=== PATIENT | female | born 1955 | race Caucasian/White ===

== ENCOUNTER 2020-11-25 06:07 | Inpatient (IN) ==
--- NOTE | 2020-11-01 10:47 | PAT Medication Instructions ---
Medication Instructions Date of Service November 01, 2020 Home Medications Apple Cider Vinegar Gummies 2 tab PO QAM albuterol sulfate [ProAir HFA] 1 inh INHALATION QID PRN alprazolam 0.5 mg PO TID azelastine 1 spray INTRANASAL BID baclofen 10 mg PO BID cannabidiol 150 mg PO BID PRN cholecalciferol (vitamin D3) [Vitamin D3] 75 mcg PO QAM cyanocobalamin (vitamin B-12) [Vitamin B-12] 500 mcg PO TID diclofenac sodium 75 mg PO BID diltiazem HCl 180 mg PO HS duloxetine 60 mg PO QAM elderberry fruit [Elderberry] 200 mg PO QAM fluticasone propionate [Flovent HFA] 1 puff INHALATION BID magnesium 250 mg PO DAILY PRN metoprolol succinate 25 mg PO HS montelukast 10 mg PO QPM oxycodone-acetaminophen 1 tab PO TID PRN pantoprazole 40 mg PO QPM potassium chloride 20 meq PO QAM pregabalin [Lyrica] 150 mg PO TID rizatriptan 10 mg PO UD PRN rosuvastatin 5 mg PO QPM triamterene-hydrochlorothiazid 1 tab PO QAM ASK your surgeon for instructions diclofenac sodium 75 mg PO BID STOP taking 2 weeks before surgery If surgery is within 2 weeks, stop taking as soon as possible. Apple Cider Vinegar Gummies 2 tab PO QAM elderberry fruit [Elderberry] 200 mg PO QAM DO NOT take the morning of surgery baclofen 10 mg PO BID cholecalciferol (vitamin D3) [Vitamin D3] 75 mcg PO QAM cyanocobalamin (vitamin B-12) [Vitamin B-12] 500 mcg PO TID magnesium 250 mg PO DAILY PRN potassium chloride 20 meq PO QAM triamterene-hydrochlorothiazid 1 tab PO QAM Take morning of surgery With a small sip of water, OTHERWISE NOTHING TO EAT OR DRINK AFTER MIDNIGHT: albuterol sulfate [ProAir HFA] 1 inh INHALATION QID PRN (if needed) alprazolam 0.5 mg PO TID azelastine 1 spray INTRANASAL BID duloxetine 60 mg PO QAM fluticasone propionate [Flovent HFA] 1 puff INHALATION BID oxycodone-acetaminophen 1 tab PO TID PRN (if needed, may be taken up to four hours before surgery) pregabalin [Lyrica] 150 mg PO TID rizatriptan 10 mg PO UD PRN (if needed) Take evening before surgery albuterol sulfate [ProAir HFA] 1 inh INHALATION QID PRN (if needed) alprazolam 0.5 mg PO TID azelastine 1 spray INTRANASAL BID baclofen 10 mg PO BID cannabidiol 150 mg PO BID PRN (if needed) cyanocobalamin (vitamin B-12) [Vitamin B-12] 500 mcg PO TID diltiazem HCl 180 mg PO HS fluticasone propionate [Flovent HFA] 1 puff INHALATION BID magnesium 250 mg PO DAILY PRN (if needed) metoprolol succinate 25 mg PO HS montelukast 10 mg PO QPM oxycodone-acetaminophen 1 tab PO TID PRN (if needed) pantoprazole 40 mg PO QPM pregabalin [Lyrica] 150 mg PO TID rizatriptan 10 mg PO UD PRN (if needed) rosuvastatin 5 mg PO QPM Other Notes If you have any questions please call us at [phone] or [phone] or [phone] or [phone]
--- NOTE | 2020-11-05 13:30 | Anesthesiology Consultation ---
Date of Service November 05, 2020 Assessment & Plan (1) Encounter for pre-operative examination: COVID Status: As of 11/05 assessment, patient denies travel to endemic area, known exposure/sick contacts, or symptoms of COVID19. Patient instructed that they and their household members must follow strict social distancing guidelines, wear a mask in public and avoid travel/events/gatherings for 14 days prior to surgery. Preoperative COVID19 testing to be completed prior to surgery per surgeon's arrangements (11/18 per pt at [facility]). Patient made aware to self- isolate as much as possible between COVID testing and surgery. Based on physical exam and limited neck ROM with h/o repaired chiari malformation, likely difficult intubation. Patient was told in the past by her neurologist that anesthesia should have a low threshold for using fiberoptic intubation and avoid neck manipulation. LMA used for 2010 TKA revision without issues per [facility] records. Cardiology Clearance 10/14/20 = "Dia Davis is in need of orthopedic surgery on her back for severe pain. She has been followed by cardiology due to history of SVT/atrial tachycardia which has been treated medically. She reported no recent cardiac events or symptoms when interviewed on the phone today. She can go up and down stairs without chest pain, but this activity causes severe back pain. She is felt to be a reasonable candidate for the planned orthopedic surgery. Obstructive sleep apnea will need to be monitored closely in the donya- operative period." Chart Review Chart Review: Acceptable Risk for Surgery and Patient seen in Pre Admission Testing Teaching & Discussion Instructed NPO after midnight before surgery, except medications with 15 cc of water. Medication instructions provided according to the PAT guidelines. History Surgery Operation Date: 11/25/20 07:45 Proposed Procedures p L2-L3 and L5-S1 Decompression and fusion, L3-L5 Hardware Removal Spinal Cor d Monitoring - Stiven Cárdenas, Height/Weight Height: 5 ft 7 in Weight: 122.5 kg Allergies Allergy/AdvReac Type Severity Reaction Status Date / Time topiramate [From Topamax] Allergy Severe Chest Pain Verified 10/29/20 15:12 adhesive AdvReac Severe blisters Verified 10/29/20 15:12 metoclopramide [From Reglan] AdvReac Intermediate skin Verified 10/29/20 15:52 crawling Medications Home Medications Medication Instructions Recorded Confirmed Last Taken Apple Cider Vinegar Gummies 2 tab PO QAM 10/29/20 10/29/20 Unknown albuterol sulfate [ProAir HFA] 1 inh INHALATION QID PRN 10/29/20 10/29/20 Unknown alprazolam 0.5 mg PO TID 10/29/20 10/29/20 Unknown azelastine 1 spray INTRANASAL BID 10/29/20 10/29/20 Unknown baclofen 10 mg PO BID 10/29/20 10/29/20 Unknown cannabidiol 150 mg PO BID PRN 10/29/20 10/29/20 Unknown cholecalciferol (vitamin D3) 75 mcg PO QAM 10/29/20 10/29/20 Unknown [Vitamin D3] cyanocobalamin (vitamin B-12) 500 mcg PO TID 10/29/20 10/29/20 Unknown [Vitamin B-12] diclofenac sodium 75 mg PO BID 10/29/20 10/29/20 Unknown diltiazem HCl 180 mg PO HS 10/29/20 10/29/20 Unknown duloxetine 60 mg PO QAM 10/29/20 10/29/20 Unknown elderberry fruit [Elderberry] 200 mg PO QAM 10/29/20 10/29/20 Unknown fluticasone propionate [Flovent 1 puff INHALATION BID 10/29/20 10/29/20 Unknown HFA] magnesium 250 mg PO DAILY PRN 10/29/20 10/29/20 Unknown metoprolol succinate 25 mg PO HS 10/29/20 10/29/20 Unknown montelukast 10 mg PO QPM 10/29/20 10/29/20 Unknown oxycodone-acetaminophen 1 tab PO TID PRN 10/29/20 10/29/20 Unknown pantoprazole 40 mg PO QPM 10/29/20 10/29/20 Unknown potassium chloride 20 meq PO QAM 10/29/20 10/29/20 Unknown pregabalin [Lyrica] 150 mg PO TID 10/29/20 10/29/20 Unknown rizatriptan 10 mg PO UD PRN 10/29/20 10/29/20 Unknown rosuvastatin 5 mg PO QPM 10/29/20 10/29/20 Unknown triamterene-hydrochlorothiazid 1 tab PO QAM 10/29/20 10/29/20 Unknown Past Medical History Medical History Anxiety Arnold-Chiari syndrome Asthma Advair BID, albuterol PRN, usually a few times per week, with exertion or hot/cold weather. Chiari malformation s/p craniotomy x 2 for repair Chronic back pain Degenerative disc disease Depression GERD (gastroesophageal reflux disease) Hemangioma of liver x2 -- monitoring Hiatal hernia Hydrocephalus [employer] Shunt (~1997) no current neurologist -- following with PCP currently, looking for a new neurologist Hyperlipidemia Hypertension Kidney stones no surgery Meniere's disease Nausea and vomiting after administration of anesthetic agent Osteoarthritis Sleep apnea cpap nightly SVT (supraventricular tachycardia) treated with medication. follows with Dr Galan ([facility]) Exercise / Class Metabolic Activity III < 4 Walking/Shop/Light housework (Using walker for stability and posture, +SOB with ambulation but pt feels 2/2 pain and difficulty, denies any chest pain) Past Family History Family History Other No family history of adverse response to anesthesia Past Surgical History Surgical History H/O craniotomy x2 to repair chiari malformation with a revision from a bovine patch H/O laminectomy C1-C2 H/O vaginal hysterectomy History of cardiac cath 20+ years ago -- no stents. History of cataract surgery bilateral History of cholecystectomy History of colonoscopy History of cystocele cystocele repair History of esophagogastroduodenoscopy (EGD) History of left knee replacement History of repair of rectocele History of revision of total replacement of right knee joint History of right knee joint replacement History of thyroidectomy, subtotal thyroid nodule. no medication. History of tonsillectomy S/P lumbar fusion Lumbar S/P [employer] shunt [place], [place] (1997) Past Anesthesia History No Family Hx of Anesthesia Complications Pt reports some h/o confusion/delirium post-op a few hours after surgery. History of PONV No Hx of Motion Sickness and History of PONV Social History Smoking Status: Never smoker Do You Dip or Chew Tobacco: No Hx Alcohol Use: No Hx Substance Use: No substance use type: does not use Review of Systems Pt denies any recent chest pain, shortness of breath, cough, fever, URI, or uncontrolled acid reflux. Had sinus infection 2 wks ago, just finished ABX, resolved. +occasional palpitations, mostly controlled with BB Physical Exam Vital Signs BP: 112/78 P: 54bpm SPO2: 94% RA T: 98.2 F R: 16 Constitutional + morbidly obese ENMN Mouth: + dental restorations (crowns and implants, several) and + small oral opening; no chipped teeth and no loose teeth Thyromental Distance: < 3.5 Finger Breadths (2.5-3) Mallampati Class: II Neck + thick neck and + limited neck extension (mildly) Respiratory normal respiratory effort, lungs clear to auscultation Cardiovascular Rate/Rhythm: regular rhythm and + bradycardic Heart Sounds: no murmur Vessels: no carotid bruit Testing Laboratory Results 11/05/20 13:40 11/05/20 13:40 PT 10.6 Seconds (9.0-12.0) 11/05/20 13:40 INR 1.0 (0.9-1.1) 11/05/20 13:40 APTT 26.9 Seconds (21.0-31.0) 11/05/20 13:40 Urine Color Yellow 11/05/20 Unknown Urine Appearance Clear (Clear) 11/05/20 Unknown Urine pH 6.5 (4.5-7.5) 11/05/20 Unknown Ur Specific [place] 1.011 (1.000-1.030) 11/05/20 Unknown Urine Protein Negative (Negative) 11/05/20 Unknown Urine Glucose (UA) Negative (Negative) 11/05/20 Unknown Urine Ketones Negative (Negative) 11/05/20 Unknown Urine Nitrite Negative (Negative) 11/05/20 Unknown Ur Leukocyte Esterase Negative (Negative) 11/05/20 Unknown Blood Type A Positive 11/05/20 13:40 Antibody Screen NEGATIVE 11/05/20 13:40 Electrocardiogram Date: 11/05/20 Findings: + SB @ (52bpm) Chest X-Ray Date: 11/05/20 Findings: + NAD Echocardiogram Date: 01/14/17 EF: 55% LV Function: normal RWMA: + none Valvular Disease: + no significant valvular disease Other Testing Mobile cardiac telemetry 01/11/17 The monitor was worn for one month. During the time of monitoring the patient was in sinus rhythm with an average heart rate of 74bpm. There were no ectopic rhythms documented. The patient had symptoms of chest pain and shortness of breath which correlated with sinus rhythm in the 80s to low 100s.
--- NOTE | 2020-11-05 14:03 | XRay Report ---
XR chest Pre-admission PA/Lat CLINICAL HISTORY: Preoperative chest COMPARISON STUDY: September 02, 2010 FINDINGS: The heart is the upper limits of normal in size. There is no failure. There is no focal pul monary consolidation. There are no pleural effusions. Increased markings at the right medial lung bas e are felt to represent a summation of vascular markings and fat pad.[ IMPRESSION: No active disease in the chest. ACT 112: Negative or not required by law. Electronically signed by: Adelfo Duffy M.D. 11/05/2020 2:02 PM
[2020-11-05 14:19] LABS: Basophils # (auto) 0.01 K/uL (0-0.2); Basophils % (auto) 0.2 %; Eosinophils # (auto) 0.17 K/uL (0-0.5); Hemoglobin 13.4 g/dL (12.0-16.0); Immature Granulocytes # (auto) 0.02 K/uL (0.00-0.02); Immature Granulocytes % (auto) 0.3 %; Lymphocytes % (auto) 22.6 %; Mean Corpuscular Hemoglobin 31.9 pg (25-34); Mean Corpuscular Hgb Conc 33.5 g/dL (32-36); Mean Corpuscular Volume 95.2 fL (80-100); Mean Platelet Volume 10.1 fL (7.4-10.4); Monocytes # (auto) 0.48 K/uL (0.11-0.59); Monocytes % (auto) 8.3 %; Neutrophils # (auto) 3.77 K/uL (1.4-6.5); Neutrophils % (auto) 65.6 %; Platelet Count 306 K/uL (130-400); RDW Coefficient of Variation 13.2 % (11.5-14.5); RDW Standard Deviation 45.5 fL (36.4-46.3); White Blood Count 5.75 K/uL (4.8-10.8)
[2020-11-05 14:27] LABS: BUN Creatinine Ratio 21.5 (10-20); Calcium 9.9 mg/dl (8.5-10.1); Creatinine Clr Calc Pharmacy 84.8 ml/min; Est GFR (African American) 77.3; Est GFR (Non-African American) 66.7; Potassium 3.7 mmol/L (3.5-5.1)
[2020-11-05 14:31] LABS: Partial Thromboplastin Time 26.9 Seconds (21.0-31.0); Prothrombin Time 10.6 Seconds (9.0-12.0)
[2020-11-05 14:35] LABS: Appearance Urine Clear (Clear); Bilirubin Urine Negative (Negative); Blood Urine Negative (Negative); Color Urine Yellow; Glucose Urine UA Negative (Negative); Ketones Urine Negative (Negative); Leukocyte Esterase Urine Negative (Negative); Nitrite Urine Negative (Negative); Protein Urine Negative (Negative); Specific Gravity Urine 1.011 (1.000-1.030); Urobilinogen Urine Negative (Negative); pH Urine 6.5 (4.5-7.5)
--- NOTE | 2020-11-05 15:35 | Electrocardiogram Report ---
Test Reason : Blood Pressure : / mmHG Vent. Rate : 052 BPM Atrial Rate : 052 BPM P-R Int : 192 ms QRS Dur : 096 ms QT Int : 456 ms P-R-T Axes : 065 055 057 degrees QTc Int : 424 ms Sinus bradycardia Otherwise normal ECG When compared with ECG of 02-SEP-2010 12:42, No significant change was found Confirmed by Fitz Nunes ([id number]) on 11/05/2020 3:34:52 PM Referred By: Stiven Cárdenas Confirmed By:Fitz Nunes
[~2020-11-25 06:07] MED LIST: ACETAMINOPHEN 500 MG TAB PO SCH; CeleBREX 200 MG CAP PO SCH; GABAPENTIN 600 MG DOSE PO SCH; LR 15ML/HR IV SCH
[2020-11-25] MEDS ORDERED: CeleBREX 200 MG CAP ONE (06:53)
[2020-11-25] MEDS ORDERED: PROPOFOL IV EMULSION 10 MG/ML 20 ML VIAL IV ONE (06:55)
[2020-11-25] MEDS ORDERED: ROCURONIUM BROMIDE 10 MG/ML 5 ML VIAL IV ONE ×2 (06:55→10:42)
[2020-11-25] MEDS ORDERED: LIDOCAINE HCL 2% 2 ML VIAL/AMP(20MG/ML) INFIL ONE (06:55)
[2020-11-25] MEDS ORDERED: MIDAZOLAM HCL 1 MG/ML 2ML VIAL ONE (06:56)
[2020-11-25] MEDS ORDERED: fentaNYL citrate 100 MCG/2 ML VIAL ONE ×2 (06:56→10:49)
[2020-11-25] MEDS ORDERED: BACITRACIN INJ 50,000 UNIT VIAL ONE (07:17)
[2020-11-25] MEDS ORDERED: BUPIVACAINE/EPINEPHRINE 0.5% MPF 1:200,000 30 ML VIAL ONE (07:17)
--- NOTE | 2020-11-25 07:49 | History & Physical Bridge Note ---
Date of Service November 25, 2020 History & Physical Bridge Note I have examined the patient, reviewed the History & Physical and in the interval since the performance of the History & Physical I have noted the following changes of clinical significance: no changes noted
--- NOTE | 2020-11-25 07:50 | History & Physical Report ---
Date of Service November 25, 2020 Assessment & Plan (1) Neurogenic claudication due to lumbar spinal stenosis: Admission and Anticipated Discharge Date Admission Date: L2-L3 and L5-S1 decompression fusion, L3-L5 hardware removal History of Present Illness Chief Complaint: Back and bilateral leg pain Primary Care Provider: OPAL PCP This is a 65-year-old female well-known to me the presents with chronic persistent back and bilateral leg pain. Failing course of nonoperative care is here for surgical invention. Allergies Allergy/AdvReac Type Severity Reaction Status Date / Time topiramate [From Topamax] Allergy Severe Chest Pain Verified 10/29/20 15:12 adhesive AdvReac Severe blisters Verified 10/29/20 15:12 metoclopramide [From Reglan] AdvReac Intermediate skin Verified 10/29/20 15:52 crawling Home Medications Medication Instructions Recorded Confirmed Type Apple Cider Vinegar Gummies 2 tab PO QAM 10/29/20 10/29/20 History albuterol sulfate [ProAir HFA] 1 inh INHALATION QID PRN 10/29/20 11/25/20 History alprazolam 0.5 mg PO TID 10/29/20 11/25/20 History azelastine 1 spray INTRANASAL BID 10/29/20 11/25/20 History baclofen 10 mg PO BID 10/29/20 11/25/20 History cannabidiol 150 mg PO BID PRN 10/29/20 11/25/20 History cholecalciferol (vitamin D3) 75 mcg PO QAM 10/29/20 10/29/20 History [Vitamin D3] cyanocobalamin (vitamin B-12) 500 mcg PO TID 10/29/20 11/25/20 History [Vitamin B-12] diclofenac sodium 75 mg PO BID 10/29/20 11/25/20 History diltiazem HCl 180 mg PO HS 10/29/20 11/25/20 History duloxetine 60 mg PO QAM 10/29/20 11/25/20 History elderberry fruit [Elderberry] 200 mg PO QAM 10/29/20 11/25/20 History fluticasone propionate [Flovent 1 puff INHALATION BID 10/29/20 10/29/20 History HFA] magnesium 250 mg PO DAILY PRN 10/29/20 11/25/20 History metoprolol succinate 25 mg PO HS 10/29/20 11/25/20 History montelukast 10 mg PO QPM 10/29/20 11/25/20 History oxycodone-acetaminophen 1 tab PO TID PRN 10/29/20 11/25/20 History pantoprazole 40 mg PO QPM 10/29/20 11/25/20 History potassium chloride 20 meq PO QAM 10/29/20 10/29/20 History pregabalin [Lyrica] 150 mg PO TID 10/29/20 11/25/20 History rizatriptan 10 mg PO UD PRN 10/29/20 10/29/20 History rosuvastatin 5 mg PO QPM 10/29/20 11/25/20 History triamterene-hydrochlorothiazid 1 tab PO QAM 10/29/20 11/25/20 History Past Med/Surg History Medical History Anxiety Arnold-Chiari syndrome Asthma Advair BID, albuterol PRN, usually a few times per week, with exertion or hot/cold weather. 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 follows with Dr Galan ([facility]) Surgical History H/O craniotomy x2 to repair chiari malformation with a revision from a bovine patch H/O laminectomy C1-C2 H/O vaginal hysterectomy History of cardiac cath 20+ years ago -- no stents. History of cataract surgery bilateral History of cholecystectomy History of colonoscopy History of cystocele cystocele repair History of esophagogastroduodenoscopy (EGD) History of left knee replacement History of repair of rectocele History of revision of total replacement of right knee joint History of right knee joint replacement History of thyroidectomy, subtotal thyroid nodule. no medication. 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 shunt [place], [place] (1997) Family History Other No family history of adverse response to anesthesia Social History Smoking Status: Never smoker Second Hand Exposure: Yes (as a child); Do You Dip or Chew Tobacco: No; Tobacco Cessation Education Requested by Patient: No Hx Alcohol Use: No Hx Substance Use: No Preferred Language: Maltese Communication Ability: Effective Gear Hobber Required: No Beliefs That Will Affect Care: None Current Living Situation: Spouse Other Information That Helps Us Care for You: No Feels Safe at Home: Yes Safety Concerns: Feels Safe At This Time Assistive Devices: Cane, CPAP, Glasses and Walker Physical Exam Physical Exam: Patient is alert and oriented Heart regular rhythm Lungs clear to auscultation Results & Data ([facility]) Vital Signs (Past 12 Hours) Vital Signs Temp Pulse Resp BP Pulse Ox 11/25/20 06:36 37 C 57 L 18 146/71 H 95 11/25/20 06:34 37 C 57 L 18 146/71 H 95
[2020-11-25] MEDS ORDERED: ePHEDrine sulfate 50 MG/ML SYR ONE (08:52)
[2020-11-25] MEDS ORDERED: ONDANSETRON INJ 2 MG/ML 2 ML VIAL ONE ×2 (08:52→10:04)
[2020-11-25] MEDS ORDERED: DEXAMETHASONE SOD INJ 4 MG/ML VIAL ONE (08:52)
[2020-11-25] MEDS ORDERED: ePHEDrine sulfate 50 MG/ML AMP IV PRN (09:21)
[2020-11-25] MEDS ORDERED: fentaNYL citrate 100 MCG/2 ML VIAL IV PRN (09:21)
[2020-11-25] MEDS ORDERED: HYDROmorphone INJ 1 MG/ML SYRINGE IV PRN ×2 (09:21→13:02)
[2020-11-25] MEDS ORDERED: ONDANSETRON INJ 2 MG/ML 2 ML VIAL IV PRN ×2 (09:21→13:02)
[2020-11-25] MEDS ORDERED: ATROPINE SULFATE 0.1 MG/ML 10ML SYR IV PRN (09:21)
[2020-11-25] MEDS ORDERED: NEOSTIGMINE METHYLSULFATE 1 MG/ML 10ML VIAL ONE (10:04)
[2020-11-25] MEDS ORDERED: GLYCOPYRROLATE 0.2 MG/ML VIAL ONE (10:04)
[2020-11-25] MEDS ORDERED: FLOSEAL HEMOSTATIC MATRIX 10ML TOP ONE (10:35)
--- NOTE | 2020-11-25 10:51 | Operative Report ---
Post Operative Report Pre & Post Diagnosis Operation Date: 11/25/20 07:45 Pre-Op Diagnosis: Spinal Senosis Lumbar Region with Neurogenic Post-Op Diagnosis: Spinal Senosis Lumbar Region with Neurogenic Morbid obesity I identified the patient and participated in the time-out.: Yes Procedure Operation Date: 11/25/20 07:45 Actual Procedures #1 removal of posterior instrumentation L3-4 and L4-5 per #2 exploration of fusion L3-4 and L4-5. #3 lumbar decompression with bilateral medial facetectomies and foraminotomies L2-3 and L5-S1. #4 posterior spinal fusion L2- 3 and L5-S1. #5 placement posterior segmental instrumentation L2-S1. #6 interbody fusion L2-3 and L5-S1. #7 placement peek cage 11 x 26 mm at L2-3 and L3-4. #8 placement locally harvested morselized autograft in the posterior lateral gutters per #9 placement infuse collagen sponge plan master graft in the posterior lateral gutters and ostial amp and interbody space. Surgeon Stiven Cárdenas, DO Title Manager Roseanna Kelley Estimated Blood Loss 800 Findings See Below The patient is 5 foot 7 inches tall weighing over 122 kg with a BMI in excess of 42. The patient's body habitus combined with an EBL greater than 800 cc created significant technical difficulty requiring her deepest retractors longus instruments in order to perform her procedure. This had at least 50% increase to the operative time. Specimens None Indications This is a 65-year-old female who presents with above-mentioned diagnosis after failing course of nonoperative care is here for the above-mentioned procedure. Description of Procedure Patient was met with identified informed consent obtained. Patient was then taken to the operative suite underwent a patient placed in a prone position the Silas table atop the Michael frame. All bony prominences well-padded eyes inspected to ensure no external pressure placed upon the. This point the lumbar spine was prepped and draped in sterile fashion. Sharp dissection with the assistance of Bovie cautery was performed down to and exposing the lamina and transverse processes of L2 instrumentation L3-L4-L5 as well as the sacral ala bilaterally. I then remove the hardware bilaterally explore the fusion mass noting it to be mature. I then performed a complete laminectomy bilateral medial facetectomy and foraminotomies of L2 and L5 addressing severe spinal stenosis. Pedicle screws were then placed in L2 L3-L4-L5 and the S1 levels bilaterally with assistance of fluoroscopy and the proper sized billy placed. By way of a transforamen approach on right complete discectomy of L5-S1 was performed endplates curetted to subcortical bleeding bone and an 11 x 26 mm peek cage filled with osteobone graft tapped in position. I then proceeded to L2-[address] of a transforaminal portion right complete discectomy performed endplates curetted to subcortical being bone and 11 x 26 mm peek cage filled with osteobone graft tapped in position. Rods were then locked in final position bilaterally. The transverse processes of L2-L3 L5 and the sacral ala burred to subcortical bleeding bone. Infuse collagen sponge master graft local autograft was placed in the posterior gutters. 15 round RYAN drain inserted. The incision was then closed with 1 Vicryl to fascia 2-0 Vicryl subcutaneously and 4 Monocryl for final skin closure. Steri-Strip sterile dressings placed. Patient waken taken PACU stable condition. Please note spinal cord monitoring was utili zed that the procedure no changes noted. Lastly Roseanna Kelley was present at the entire procedure involved the patient positioning complex portions of the surgery and final skin closure. I attest to the content of the Intraoperative Record and any orders documented therein. Any exceptions are noted below.
--- NOTE | 2020-11-25 11:05 | Fluoroscopy Report ---
INTRAOPERATIVE RADIOGRAPHS CLINICAL HISTORY: L2-S1 spinal fusion. Fluoroscopy time: 29 seconds. FINDINGS: 4 spot fluoroscopic views of the lumbar spine are presented. There is postoperative change from discectomy at all levels between L2 and S1 with laminectomy and posterior fusion from L2-S1. Int erpedicular screws are present at all levels. The orthopedic hardware appears intact. IMPRESSION: Intraoperative images from L2-S1 spinal fusion as above. Electronically signed by: Ravin Cartwright M.D. 11/25/2020 11:04 AM
[2020-11-25] MEDS ORDERED: NALOXONE HCL 0.4 MG/1 ML VIAL/CARP ONE (11:32)
--- NOTE | 2020-11-25 12:32 | Anesthesiology Progress Note ---
Date of Service November 25, 2020 Anesthesia Post Procedure Vital Signs Vital Signs: Temp Pulse Pulse Resp BP BP Pulse Ox 11/25/20 12:33 36.2 C L 59 L 18 153/76 H 100 11/25/20 12:20 36.2 C L 58 L 16 154/80 H 94 11/25/20 12:10 36.2 C L 59 L 16 145/76 H 100 11/25/20 12:00 59 L 16 145/80 H 100 11/25/20 11:50 56 L 16 137/77 100 11/25/20 11:40 65 17 153/86 H 100 11/25/20 11:30 65 17 149/82 H 100 11/25/20 11:24 36.2 C L 72 16 149/100 H 98 11/25/20 06:36 37 C 57 L 18 146/71 H 95 11/25/20 06:34 37 C 57 L 18 146/71 H 95 Pain Intensity Back: Pain Intensity: 5 Transfer of Care Handoff Completed per policy Notes Mental Status: alert / awake / arousable and participated in evaluation Patient Amnestic to Procedure: Yes Nausea / Vomiting: adequately controlled Pain: adequately controlled Airway Patency, RR, SpO2: stable & adequate BP & HR: stable & adequate Hydration State: stable & adequate Anesthetic Complications: no major complications apparent and Pt Satisfied with anesthetic care Notes: Pt received 300 mcg of fentanyl intraop. At the end of the case, pt apneic. After being given narcan, the patient began to SV and was responding to voice. Sent to PACU and did well in recovery. OK to discharge to floor but continuos pulse oximetry monitoring order placed.
[2020-11-25] MEDS ORDERED: HYDROmorphone INJ 0.5 MG/0.5 ML SYR IV PRN (13:02)
[2020-11-25] MEDS ORDERED: FAMOTIDINE 20 MG TAB PO PRN (13:02)
[2020-11-25] MEDS ORDERED: LORazepam 0.5 MG/1 ML VIAL IV PRN (13:02)
[2020-11-25] MEDS ORDERED: ALUMINUM/MAGNESIUM SUSP 30 ML UDC PO PRN (13:02)
[2020-11-25] MEDS ORDERED: LORazepam 0.5 MG TAB PO PRN (13:02)
[2020-11-25] MEDS ORDERED: hydrOXYzine HCl 25 MG TAB PO PRN (13:02)
[2020-11-25] MEDS ORDERED: traMADol HCL 50 MG TABLET PO PRN (13:02)
[2020-11-25] MEDS ORDERED: diphenhydrAMINE Capsule 25 MG CAP PO PRN (13:02)
[2020-11-25] MEDS ORDERED: ACETAMINOPHEN 1,000 MG/100 ML VIAL IV PRN (13:02)
[2020-11-25] MEDS ORDERED: METOCLOPRAMIDE HCL INJ 5 MG/ML 2 ML VIAL IV PRN (13:02)
[2020-11-25] MEDS ORDERED: ONDANSETRON 4 MG OD TAB PO PRN (13:02)
[2020-11-25] MEDS ORDERED: DO NOT ADMINISTER FLU VACCINE PRN (13:02)
[2020-11-25] MEDS ORDERED: NALOXONE HCL 0.4 MG/1 ML VIAL/CARP IV PRN (13:02)
[2020-11-25] MEDS ORDERED: MAGNESIUM HYDROXIDE SUSP 30 ML UDC PO PRN (13:02)
[2020-11-25] MEDS ORDERED: PROMETHAZINE HCL 12.5 MG in SODIUM CHLORIDE 0.9% 50 ML IV PRN (13:02)
[2020-11-25] MEDS ORDERED: CANNABIDIOL 100 MG/ML PO PRN (13:02)
[2020-11-25] MEDS ORDERED: DO NOT ADMINISTER PNEUMOCOCCAL VACCINE PRN (13:02)
[2020-11-25] MEDS ORDERED: SOD PHOSPHATE/SOD BIPHOSPHATE ENEMA 132 ML BTL PR PRN (13:02)
[2020-11-25] MEDS ORDERED: RIZATRIPTAN BENZOATE 10 MG TAB PO PRN (13:02)
[2020-11-25] MEDS ORDERED: ALBUTEROL HFA 8 GM INHALER INH PRN (13:23)
[2020-11-25] MEDS ORDERED: MAGNESIUM OXIDE 400 MG TAB PO PRN (13:24)
[2020-11-25] MEDS: SODIUM CHLORIDE 0.9% 1000ML 1,000 ML IV SCH ×2 (13:37→20:23)
--- NOTE | 2020-11-25 13:49 | Hospitalist Consultation ---
Date of Consultation November 25, 2020 Assessment & Plan (1) Neurogenic claudication due to lumbar spinal stenosis: Mrs. Davis is a 65 year old female with a history of Hypertension, Dyslipidemia, PSVT, Paroxysmal Atrial Tachycardia, COPD/Asthma, Sleep Apnea, Fibromyalgia, GERD, Osteoarthritis, Meniere's Disease, Chiari Malformation s/p Craniotomy x 2, Morbid Obesity, and Lumbar Degenerative Disc Disease s/p previous L2-L3 and L5-S1 Decompression and Fusion who developed intolerable Jossy rogenic Claudication secondary to Lumbar Spinal Stenosis. This morning she underwent removal of old hardware and L2-S1 Decompression and Fusion with Dr. Cárdenas, surgery was without complications. Hospitalists were consulted for Post-Op Medical Management. Patient complains of surgical pain at the present time, but she is not having pain into her hips or legs. Patient received Fentanyl in recovery and needed to have her O2 sats monitored for a period of time. Patient is hemodynamically stable post-operatively. -- Continue IV NSS as ordered by surgery. -- Opiate analgesics as ordered by Dr. Cárdenas. -- Continue Lyrica 150 mg t.i.d.. -- Compression stockings for DVT prophylaxis. -- Monitor daily CBC with Diff, BMP. -- Activity level as per Dr. Cárdenas. -- Incentive Spirometry. (2) HTN (hypertension): -- BP is mildly elevated. -- Continue Toprol XL 25 mg qHS. -- Continue Triamterene Hydrochlorothiazide 37.5-25 mg every morning. -- Continue Diltiazem CD 180 mg daily at bedtime. -- Continue Potassium Chloride 20 mEq daily. -- Recommend low sodium diet. (3) Dyslipidemia: -- Continue Rosuvastatin 5 mg each evening. (4) Sleep apnea: -- On CPAP, she brought in her home unit. -- Weight loss. (5) PSVT (paroxysmal supraventricular tachycardia): -- History of PSVT and PAT, no recent episoddes. -- Continue Toprol XL 25 mg qHS. -- Continue Diltiazem CD 180 mg daily at bedtime. (6) Asthma: -- Controlled, no active symptoms, lungs are clear. -- Continue Singulair 10 mg each evening. -- Continue Flovent HFA 100 mcg -- 1 puff b.i.d.. -- Continue Albuterol HFA 1 puff q.i.d. as needed. Supervising Physician Co-Signing Physician Notes I personally saw and examined the patient. I verified all anders points and agree with WINNIE Gutierrez with the following exceptions and/or additions: 65-year-old female POD#0 lumbar spinal surgery with removal of previous instrumentation and posterior spinal fusion L2-three and L5-S1 with posterior segmental instrumentation L2-S1. Patient doing well postoperatively. No acute medical needs identified at this time. O/E Chest CTAB, HS 1+2, no murmurs,, Abdo SNT, BS +ve A/P As above. No acute medical needs identified. Continue chronic blood pressure and paroxysmal SVT medications. History of Present Illness Reason for Consultation: -- Postoperative Medical Management. -- S/P L2 to S1 Decompression and Fusion Requesting Physician: Sammy Cárdenas MD Attending Physician: Pablo Kidd MD History of Present Illness Mrs. Davis is a 65 year old female with a history of Hypertension, Dyslipidemia, PSVT, Paroxysmal Atrial Tachycardia, COPD/Asthma, Sleep Apnea, Fibromyalgia, GERD, Osteoarthritis, Meniere's Disease, Chiari Malformation s/p Craniotomy x 2, Morbid Obesity, and Lumbar Degenerative Disc Disease s/p previous L2-L3 and L5-S1 Decompression and Fusion who developed intolerable Neurogenic Claudication secondary to Lumbar Spinal Stenosis. This morning she underwent removal of old hardware and L2-S1 Decompression and Fusion with Dr. Cárdenas, surgery was without complications. Hospitalists were consulted for Post -Op Medical Management. Patient complains of surgical pain at the present time, but she is not having pain into her hips or legs. Patient received Fentanyl in recovery and needed to have her O2 sats monitored for a period of time. Patient has experienced neurogenic claudication for some time now. She denies any specific complaints at this time. She specifically denies any chest discomfort, SOB, OAKES, or any recent palpitations. She denies any nausea or vertigo following surgery. She denies any recent infectious symptoms including, fever, chills, cough, sputum production, urinary symptoms, or any change in bowel habits or diarrhea. Allergies Allergy/AdvReac Type Severity Reaction Status Date / Time topiramate [From Topamax] Allergy Severe Chest Pain Verified 10/29/20 15:12 adhesive AdvReac Severe blisters Verified 10/29/20 15:12 metoclopramide [From Reglan] AdvReac Intermediate skin Verified 10/29/20 15:52 crawling Home Medications Medication Instructions Recorded Confirmed Type Apple Cider Vinegar Gummies 2 tab PO QAM 10/29/20 10/29/20 History albuterol sulfate [ProAir HFA] 1 inh INHALATION QID PRN 10/29/20 11/25/20 History alprazolam 0.5 mg PO TID 10/29/20 11/25/20 History azelastine 1 spray INTRANASAL BID 10/29/20 11/25/20 History baclofen 10 mg PO BID 10/29/20 11/25/20 History cannabidiol 150 mg PO BID PRN 10/29/20 11/25/20 History cholecalciferol (vitamin D3) 75 mcg PO QAM 10/29/20 10/29/20 History [Vitamin D3] cyanocobalamin (vitamin B-12) 500 mcg PO TID 10/29/20 11/25/20 History [Vitamin B-12] diclofenac sodium 75 mg PO BID 10/29/20 11/25/20 History diltiazem HCl 180 mg PO HS 10/29/20 11/25/20 History duloxetine 60 mg PO QAM 10/29/20 11/25/20 History elderberry fruit [Elderberry] 200 mg PO QAM 10/29/20 11/25/20 History fluticasone propionate [Flovent 1 puff INHALATION BID 10/29/20 10/29/20 History HFA] magnesium 250 mg PO DAILY PRN 10/29/20 11/25/20 History metoprolol succinate 25 mg PO HS 10/29/20 11/25/20 History montelukast 10 mg PO QPM 10/29/20 11/25/20 History oxycodone-acetaminophen 1 tab PO TID PRN 10/29/20 11/25/20 History pantoprazole 40 mg PO QPM 10/29/20 11/25/20 History potassium chloride 20 meq PO QAM 10/29/20 10/29/20 History pregabalin [Lyrica] 150 mg PO TID 10/29/20 11/25/20 History rizatriptan 10 mg PO UD PRN 10/29/20 10/29/20 History rosuvastatin 5 mg PO QPM 10/29/20 11/25/20 History triamterene-hydrochlorothiazid 1 tab PO QAM 10/29/20 11/25/20 History Patient History Medical History Anxiety Arnold-Chiari syndrome Asthma Advair BID, albuterol PRN, usually a few times per week, with exertion or hot/cold weather. Chiari malformation s/p craniotomy x 2 for repair Chronic back pain Degenerative disc disease Depression GERD (gastroesophageal reflux disease) Hemangioma of liver x2 -- monitoring Hiatal hernia Hydrocephalus [employer] (~1997) no current neurologist -- following with PCP currently, looking for a new neurologist Hyperlipidemia Hypertension Kidney stones no surgery Meniere's disease Nausea and vomiting after administration of anesthetic agent Osteoarthritis Sleep apnea cpap nightly SVT (supraventricular tachycardia) treated with medication. follows with Dr Galan ([facility]) Surgical History H/O craniotomy x2 to repair chiari malformation with a revision from a bovine patch H/O laminectomy C1-C2 H/O vaginal hysterectomy History of cardiac cath 20+ years ago -- no stents. History of cataract surgery bilateral History of cholecystectomy History of colonoscopy History of cystocele cystocele repair History of esophagogastroduodenoscopy (EGD) History of left knee replacement History of repair of rectocele History of revision of total replacement of right knee joint History of right knee joint replacement History of thyroidectomy, subtotal thyroid nodule. no medication. History of tonsillectomy S/P lumbar fusion Lumbar S/P [employer] sh[employer] [place], [place] (1997) Family History Other No family history of adverse response to anesthesia Social History Smoking Status: Never smoker Second Hand Exposure: Yes (as a child); Do You Dip or Chew Tobacco: No; Tobacco Cessation Education Requested by Patient: No Hx Alcohol Use: No Hx Substance Use: No Preferred Language: [place] Communication Ability: Effective Professional Caster Required: No Beliefs That Will Affect Care: None marital status: Current Living Situation: Spouse Other Information That Helps Us Care for You: No Feels Safe at Home: Yes Safety Concerns: Feels Safe At This Time Assistive Devices: Walker Review of Systems Review of Systems: All systems reviewed & are unremarkable except as noted in Subjective Physical Exam Physical Exam: GENERAL: Patient in lying in the right lateral decubitus position, she is somnolent. HEENT: Head is atraumatic, normocephalic. EOM's intact. Facies symmetric. No perioral cyanosis. NECK: No JVD. Carotid upstrokes are + 2 bilaterally. No bruits are noted. CHEST/LUNGS: Clear to auscultation throughout all lung rea. No wheezes, rales, or crackles. CVS: S1 and S2 are regular without obvious murmurs, gallops, or rubs. PMI is nonpalpable. No lifts, heaves, or thrills. No abdominal aortic or renal bruits. ABDOMINAL EXAM: Bowel sounds are present. No masses, organomegaly, or tenderness. EXTREMITIES: No clubbing or cyanosis. No edema. Intact radial pulses bilaterally. NEUROLOGIC EXAM: Patient is somnolent, but arouses to verbal stimuli. She is cooperative. Answers questions appropriately. Speech is clear. Results & Data Results & Data ([facility]) Vital Signs (Past 12 Hours) Vital Signs Temp Pulse Pulse Pulse Resp BP BP 11/25/20 13:15 64 16 154/87 H 11/25/20 12:45 36.4 C L 59 L 16 149/85 H 11/25/20 12:33 36.2 C L 59 L 18 153/76 H 11/25/20 12:20 36.2 C L 58 L 16 154/80 H 11/25/20 12:10 36.2 C L 59 L 16 145/76 H 11/25/20 12:00 59 L 16 145/80 H 11/25/20 11:50 56 L 16 137/77 11/25/20 11:40 65 17 153/86 H 11/25/20 11:30 65 17 149/82 H 11/25/20 11:24 36.2 C L 72 16 149/100 H 11/25/20 06:36 37 C 57 L 18 146/71 H 11/25/20 06:34 37 C 57 L 18 146/71 H Pulse Ox 11/25/20 13:15 100 11/25/20 12:45 100 11/25/20 12:33 100 11/25/20 12:20 94 11/25/20 12:10 100 11/25/20 12:00 100 11/25/20 11:50 100 11/25/20 11:40 100 11/25/20 11:30 100 11/25/20 11:24 98 11/25/20 06:36 95 11/25/20 06:34 95 Laboratory Results Laboratory Results - last 24 hr 11/25/20 06:51 Blood Type A Positive Antibody Screen NEGATIVE Crossmatch See Detail Diagnostic Findings CXR 11/05/2020 FINDINGS: The heart is the upper limits of normal in size. There is no failure. There is no focal pulmonary consolidation. There are no pleural effusions. Increased markings at the right medial lung base are felt to represent a summation of vascular markings and fat pad. IMPRESSION: No active disease in the chest. PG Care Time/CCT Total # of Minutes Spent Total Time Spent with Patient: Total time spent is greater than 50% in coordination of care (as documented) at patient's floor/unit and/or counseling patient:45 Coding Level of Care Code 73816 Inpt Consult Level 3 Diagnoses Neurogenic claudication due to lumbar spinal stenosis M48.062 HTN (hypertension) I10 Dyslipidemia E78.5 Sleep apnea G47.30 PSVT (paroxysmal supraventricular tachycardia) I47.1 Asthma J45.909 Time Spent (min) 65
[2020-11-25] MEDS: ALPRAZolam 0.5 MG TABLET PO SCH ×2 (13:54→21:30)
[2020-11-25] MEDS: CYANOCOBALAMIN 500 MCG TABLET (VITAMIN B-12) PO SCH ×2 (13:54→21:31)
[2020-11-25] MEDS: PREGABALIN 150 MG CAP PO SCH ×2 (13:54→21:30)
[2020-11-25] MEDS: ceFAZolin 2000MG 2,000 MG/15 ML SYR IV SCH ×2 (15:37→23:30)
[2020-11-25] MEDS: oxyCODONE HCL IR 5 MG TAB (IMMEDIATE RELEASE) PO PRN ×2 (17:09→23:30)
[2020-11-25] MEDS ORDERED: NON-FORMULARY MEDICATION (Azelastine 137 mcg (0.1 %) Aerosol,Spray) INTNAS SCH (21:00)
[2020-11-25] MEDS: DOCUSATE SODIUM/SENNA 50/8.6MG TAB PO SCH (21:30)
[2020-11-25] MEDS: dilTIAZem ER 180 MG CAPCR PO SCH (21:30)
[2020-11-25] MEDS: ROSUVASTATIN CALCIUM 5 MG TAB PO SCH (21:31)
[2020-11-25] MEDS: METOPROLOL SUCC 25MG EXT REL TAB PO SCH (21:31)
[2020-11-25] MEDS: BACLOFEN 10 MG TAB PO SCH (21:31)
[2020-11-25] MEDS: PANTOprazole 40 MG TAB PO SCH (21:31)
[2020-11-25] MEDS: MONTELUKAST SODIUM 10 MG TABLET PO SCH (21:31)
[2020-11-25] MEDS: ACETAMINOPHEN 500 MG TAB PO PRN (23:30)
[2020-11-26] MEDS: SODIUM CHLORIDE 0.9% 1000ML 1,000 ML IV SCH (03:05)
[2020-11-26] MEDS: POLYETHYLENE (MIRALAX) 17 GM PACK PO SCH ×5 (03:13→23:21)
[2020-11-26] MEDS: oxyCODONE HCL IR 5 MG TAB (IMMEDIATE RELEASE) PO PRN ×6 (04:31→22:30)
[2020-11-26 05:50] LABS: Basophils # (auto) 0.01 K/uL (0-0.2); Basophils % (auto) 0.1 %; Hematocrit (blood only) 31.7 % (37-47); Hemoglobin 10.5 g/dL (12.0-16.0); Immature Granulocytes # (auto) 0.01 K/uL (0.00-0.02); Immature Granulocytes % (auto) 0.1 %; Lymphocytes # (auto) 0.59 K/uL (1.2-3.4); Lymphocytes % (auto) 7.6 %; Mean Corpuscular Hemoglobin 31.3 pg (25-34); Mean Corpuscular Hgb Conc 33.1 g/dL (32-36); Mean Corpuscular Volume 94.6 fL (80-100); Mean Platelet Volume 9.6 fL (7.4-10.4); Monocytes # (auto) 0.44 K/uL (0.11-0.59); Monocytes % (auto) 5.7 %; Neutrophils # (auto) 6.71 K/uL (1.4-6.5); Neutrophils % (auto) 86.5 %; Platelet Count 242 K/uL (130-400); RDW Coefficient of Variation 13.1 % (11.5-14.5); RDW Standard Deviation 45.7 fL (36.4-46.3); Red Blood Count 3.35 M/uL (4.2-5.4); White Blood Count 7.76 K/uL (4.8-10.8)
[2020-11-26 06:17] LABS: Creatinine Clr Calc Pharmacy 110.2 ml/min; Est GFR (African American) 106.1; Est GFR (Non-African American) 91.6; Potassium 3.2 mmol/L (3.5-5.1)
[2020-11-26] MEDS: TRIAMTERENE/HCTZ 37.5/25MG TAB PO SCH (08:35)
[2020-11-26] MEDS: BACLOFEN 10 MG TAB PO SCH ×2 (08:35→20:46)
[2020-11-26] MEDS: CHOLECALCIFEROL 1,000 UNITS 25 MCG TAB PO SCH (08:35)
[2020-11-26] MEDS: CYANOCOBALAMIN 500 MCG TABLET (VITAMIN B-12) PO SCH ×3 (08:35→20:46)
[2020-11-26] MEDS: DULoxetine HCL 60 MG CAP PO SCH (08:36)
[2020-11-26] MEDS: FLUTICASONE FUROATE 100MCG 14 PUFFS/INHALER INH SCH (08:37)
[2020-11-26] MEDS: ALPRAZolam 0.5 MG TABLET PO SCH ×3 (08:43→20:41)
[2020-11-26] MEDS: PREGABALIN 150 MG CAP PO SCH ×3 (08:43→20:41)
[2020-11-26] MEDS ORDERED: POTASSIUM CHLORIDE CRTAB 20 MEQ TABCR PO SCH (09:00)
--- NOTE | 2020-11-26 10:15 | Orthopedic Progress Note ---
Date of Service November 26, 2020 Assessment & Plan (1) Neurogenic claudication due to lumbar spinal stenosis: Admission and Anticipated Discharge Date Admission Date: November 25, 2020 This time continue physical therapy monitor RYAN operatively discharge home in the next few days. Subjective Patient's back pain controlled complaining some right sciatica. Physical Exam Physical Exam: Patient is in the chair at bedside. Is good strength testing. Does appear overall relatively comfortable. Results & Data ([facility]) Vital Signs (Past 12 Hours) Vital Signs Temp Pulse Pulse Resp BP Pulse Ox Pulse Ox 11/26/20 08:53 57 L 101/52 L 11/26/20 07:27 36.9 C 60 16 94/50 L 98 11/26/20 03:03 36.7 C 64 16 108/63 97 11/25/20 23:20 97 11/25/20 23:10 37.1 C 73 18 126/64 97
--- NOTE | 2020-11-26 11:18 | Hospitalist Progress Note ---
Date of Service November 26, 2020 Assessment & Plan (1) Neurogenic claudication due to lumbar spinal stenosis: s/p decompression and fusion by Dr. Cárdenas mild drop in Hb to 10.5, BP and HR stable, continue to monitor she is doing well with therapy pain is controlled eating well, using incentive spirometer discharge planning per Dr. Cárdenas medicine will sign off at this time, contact us with any new changes (2) HTN (hypertension): BP is low normal continue to monitor, no acute issues (3) Hypokalemia: low at 3.2 recommend taking 20mEq BID while here, can stop supplementation on discharge Cr is normal (4) Dyslipidemia: (5) Sleep apnea: (6) PSVT (paroxysmal supraventricular tachycardia): (7) Asthma: Admission and Anticipated Discharge Date Admission Date: November 25, 2020 Subjective patient doing well, minimal back pain reviewed labs, Cr is stable, K a little low at 3.2 Hb down slightly she complains that the continuous pulse ox is bothering her, keeps ringing, even on her CPAP she is 95-99% on room air while talking with me she is eating well, making urine, no dyspnea, no chest pain, no nausea Review of Systems Review of Systems: All systems reviewed & are unremarkable except as noted in Subjective Physical Exam Constitutional: WD/WN, vitals as above + morbidly obese; no acute distress Neck: trachea midline, no thyromegaly + thick neck Respiratory: normal respiratory effort, lungs clear to auscultation Cardiovascular: RRR, no murmur, no edema Gastrointestinal (Abdomen): normal bowel sounds, soft, nontender, no hepatosplenomegaly Musculoskeletal: Head/Neck/Chest: normocephalic, head atraumatic and neck supple Spine: + lumbar spinal tenderness (post op) Extremities: extremities normal to inspection and strength 5/5 throughout; no cyanosis, no clubbing and no petechiae Skin: no rashes, warm and dry Neurologic: patellar DTR's 2+ bilat, sensation intact and PERRL, EOMI, accommodation nl, no face palsy, no dysarthria Psychiatric: A+Ox3, euthymic affect Lymphatic: no cervical or axillary lymphadenopathy Results & Data Results & Data ([facility]) Vital Signs (Past 12 Hours) Vital Signs Temp Pulse Pulse Resp BP Pulse Ox Pulse Ox 11/26/20 08:53 57 L 101/52 L 11/26/20 07:27 36.9 C 60 16 94/50 L 98 11/26/20 03:03 36.7 C 64 16 108/63 97 11/25/20 23:20 97 Laboratory Results Laboratory Results - last 24 hr 11/26/20 11/26/20 05:23 05:23 WBC 7.76 RBC 3.35 L Hgb 10.5 L Hct 31.7 L MCV 94.6 MCH 31.3 MCHC 33.1 RDW Std Deviation 45.7 RDW Coeff of Adriel 13.1 Plt Count 242 MPV 9.6 Immature Gran % (Auto) 0.1 Neut % (Auto) 86.5 Lymph % (Auto) 7.6 [place] % (Auto) 5.7 Eos % (Auto) 0.0 Baso % (Auto) 0.1 Neut # (Auto) 6.71 H Lymph # (Auto) 0.59 L [place] # (Auto) 0.44 Eos # (Auto) 0.00 Baso # (Auto) 0.01 Immature Gran # (Auto) 0.01 Sodium 145 Potassium 3.2 L Chloride 110 H Carbon Dioxide 31 Anion Gap 4.0 BUN 11 Creatinine 0.70 Est Cr Clr Drug Dosing 110.2 Est GFR ( Amer) 106.1 Est GFR (Non-Af Amer) 91.6 BUN/Creatinine Ratio 16.0 Glucose 123 H Calcium 8.0 L Medications Administered Current Inpatient Medications Acetaminophen (Acetaminophen 500 Mg Tab) 1,000 mg PO Q8H PRN PRN Reason: MILD Pain Scale 1,2,3 & Pre PT Stop: 12/25/20 13:01 Last Admin: 11/25/20 23:30 Dose: 1,000 mg Documented by: Al Hydrox/Mg Hydrox/Simethicone (Aluminum/Magnesium Susp 30 Ml Udc) 30 ml PO Q6H PRN PRN Reason: Dyspepsia Stop: 12/25/20 13:01 Albuterol (Albuterol Hfa 8 Gm Inhaler) 1 puffs INH QID PRN PRN Reason: Shortness Of Breath Stop: 12/25/20 13:22 Alprazolam (Alprazolam 0.5 Mg Tablet) 0.5 mg PO TID DEBORAH Stop: 12/25/20 13:59 Last Admin: 11/26/20 08:43 Dose: 0.5 mg Documented by: Baclofen (Baclofen 10 Mg Tab) 10 mg PO BID [facility] Stop: 12/25/20 20:59 Last Admin: 11/26/20 08:35 Dose: 10 mg Documented by: Bisacodyl (Bisacodyl 10 Mg Supp) 10 mg [place] DAILY PRN PRN Reason: Constipation Stop: 12/27/20 10:55 Cyanocobalamin (Cyanocobalamin 500 Mcg Tablet (Vitamin B-12)) 500 mcg PO TID [facility] Stop: 12/25/20 13:59 Last Admin: 11/26/20 08:35 Dose: 500 mcg Documented by: Diltiazem HCl (Diltiazem Er 180 Mg Capcr) 180 mg PO HS [facility] Stop: 12/25/20 20:59 Last Admin: 11/25/20 21:30 Dose: 180 mg Documented by: Diphenhydramine HCl (Diphenhydramine Capsule 25 Mg Cap) 25 mg PO Q6H PRN PRN Reason: Allergic Rhinitis/Insomnia Stop: 12/25/20 13:01 Duloxetine HCl (Duloxetine Hcl 60 Mg Cap) 60 mg PO QAM [facility] Stop: 12/26/20 08:59 Last Admin: 11/26/20 08:36 Dose: 60 mg Documented by: Famotidine (Famotidine 20 Mg Tab) 20 mg PO Q12H PRN PRN Reason: Dyspepsia Stop: 12/25/20 13:01 Fluticasone Furoate (Fluticasone Furoate 100mcg 14 Puffs/Inhaler) 1 puffs INH DAILY [facility] Stop: 12/26/20 08:59 Last Admin: 11/26/20 08:37 Dose: 1 puffs Documented by: Hydromorphone HCl (Hydromorphone Inj 0.5 Mg/0.5 Ml Syr) 0.5 mg IV Q3H PRN PRN Reason: MOD pain (scale 4-6) & Pre PT Stop: 12/09/20 13:01 Hydromorphone HCl (Hydromorphone Inj 1 Mg/Ml Syringe) 1 mg IV Q3H PRN PRN Reason: severe pain (scale 7-10) Stop: 12/09/20 13:01 Hydroxyzine HCl (Hydroxyzine Hcl 25 Mg Tab) 25 mg PO Q8H PRN PRN Reason: Anxiety Stop: 12/25/20 13:01 Lorazepam (Ativan) 0.5 mg in 1 mls @ 1 mls/min IV Q8H PRN PRN Reason: Sedation/Anxiety Stop: 12/25/20 13:01 Acetaminophen (Ofirmev) 1,000 mg in 100 mls @ 400 mls/hr IV Q8H PRN PRN Reason: Pain Rating 1-3 & Pre PT Stop: 11/28/20 13:01 Promethazine HCl 12.5 mg/ (Sodium Chloride) 50.5 mls @ 202 mls/hr IV Q6H PRN PRN Reason: Nausea &/or Vomiting Stop: 12/25/20 13:01 Dexamethasone Sodium Phosphate (8 mg/ Syringe) 2 mls @ 1 mls/min IV DAILY [facility] Stop: 12/26/20 10:29 Influenza Virus Vaccine Quadrival (Do Not Administer Flu Vaccine) 1 ea N/A PRN PRN PRN Reason: Notification Stop: 12/25/20 13:01 Lorazepam (Lorazepam 0.5 Mg Tab) 0.5 mg PO Q8H PRN PRN Reason: sedation/anxiety Stop: 12/25/20 13:01 Magnesium Hydroxide (Magnesium Hydroxide Susp 30 Ml Udc) 30 ml PO Q24H PRN PRN Reason: Constipation Stop: 12/25/20 13:01 Magnesium Oxide (Magnesium Oxide 400 Mg Tab) 400 mg PO DAILY PRN PRN Reason: muscle cramps Stop: 12/25/20 13:23 Metoclopramide HCl (Metoclopramide Hcl Inj 5 Mg/Ml 2 Ml Vial) 10 mg IV Q6H PRN PRN Reason: Nausea &/or Vomiting Stop: 12/25/20 13:01 Metoprolol Succinate (Metoprolol Succ 25mg Ext Rel Tab) 25 mg PO HS DEBORAH Stop: 12/25/20 20:59 Last Admin: 11/25/20 21:31 Dose: 25 mg Documented by: Montelukast Sodium (Montelukast Sodium 10 Mg Tablet) 10 mg PO QPM DEBORAH Stop: 12/25/20 20:59 Last Admin: 11/25/20 21:31 Dose: 10 mg Documented by: Naloxone HCl (Naloxone Hcl 0.4 Mg/1 Ml Vial/Carp) 0.1 mg IV Q5M PRN PRN Reason: Oversedation/respiratory dep Stop: 12/25/20 13:01 Ondansetron HCl (Ondansetron Inj 2 Mg/Ml 2 Ml Vial) 4 mg IV Q6H PRN PRN Reason: Nausea &/or Vomiting Stop: 12/25/20 13:01 Ondansetron HCl (Ondansetron 4 Mg Od Tab) 4 mg PO Q6H PRN PRN Reason: Nausea Stop: 12/25/20 13:01 Oxycodone HCl (Oxycodone Hcl Ir 5 Mg Tab (Immediate Release)) 5 - 10 mg PO Q4H PRN PRN Reason: Pain & Pre PT Stop: 12/09/20 13:01 Last Admin: 11/26/20 10:19 Dose: 10 mg Documented by: Pantoprazole Sodium (Pantoprazole 40 Mg Tab) 40 mg PO QPM DEBORAH Stop: 12/25/20 20:59 Last Admin: 11/25/20 21:31 Dose: 40 mg Documented by: Pneumococcal Polyvalent Vaccine (Do Not Administer Pneumococcal Vaccine) 1 ea N/A PRN PRN PRN Reason: Notification Stop: 12/25/20 13:01 Polyethylene Glycol (Polyethylene (Miralax) 17 Gm Pack) 17 gm PO Q6 DEBORAH Stop: 12/26/20 05:59 Last Admin: 11/26/20 06:37 Dose: Not Given Documented by: Potassium Chloride (Potassium Chloride Crtab 20 Meq Tabcr) 20 meq PO BID DEBORAH Stop: 12/26/20 20:59 Pregabalin (Pregabalin 150 Mg Cap) 150 mg PO TID DEBORAH Stop: 12/25/20 13:59 Last Admin: 11/26/20 08:43 Dose: 150 mg Documented by: Rizatriptan Benzoate (Rizatriptan Benzoate 10 Mg Tab) 10 mg PO UD PRN PRN Reason: migraines Stop: 12/25/20 13:01 Rosuvastatin Calcium (Rosuvastatin Calcium 5 Mg Tab) 5 mg PO QPM DEBORAH Stop: 12/25/20 20:59 Last Admin: 11/25/20 21:31 Dose: 5 mg Documented by: Senna/Docusate Sodium (Docusate Sodium/Senna 50/8.6mg Tab) 2 tab PO HS [facility] Stop: 12/25/20 20:59 Last Admin: 11/25/20 21:30 Dose: 2 tab Documented by: Sodium Biphosphate/Sodium Phosphate (Sod Phosphate/Sod Biphosphate Enema 132 Ml Btl) 132 ml [place] ONE PRN PRN Reason: Constipation Stop: 12/25/20 13:01 Tramadol HCl (Tramadol Hcl 50 Mg Tablet) 50 - 100 mg PO Q4H PRN PRN Reason: Moderate-Severe pain & Pre PT Stop: 12/25/20 13:01 Triamterene/Hydrochlorothiazide (Triamterene/Hctz 37.5/25mg Tab) [facility] [place] Stop: 12/26/20 08:59 Last Admin: 11/26/20 08:35 Dose: 1 tab Documented by: Vitamin D (Cholecalciferol 1,000 Units 25 Mcg Tab) 3,000 [facility] [place] Stop: 12/26/20 08:59 Last Admin: 11/26/20 08:35 Dose: 3,000 units Documented by: PG Care Time/CCT Total # of Minutes Spent Total Time Spent with Patient: Total time spent is greater than 50% in coordination of care (as documented) at patient's floor/unit and/or counseling patient: Coding Level of Care Code 80356 Subseq Hosp Care Lvl 2 Diagnoses Neurogenic claudication due to lumbar spinal stenosis M48.062 HTN (hypertension) I10 Hypokalemia E87.6 Dyslipidemia E78.5 Sleep apnea G47.30 PSVT (paroxysmal supraventricular tachycardia) I47.1 Asthma J45.909
[2020-11-26] MEDS: DEXAMETHASONE SOD PHOSPHATE 8 MG in SYRINGE 0 ML IV SCH (12:13)
[2020-11-26] MEDS: PANTOprazole 40 MG TAB PO SCH (20:45)
[2020-11-26] MEDS: DOCUSATE SODIUM/SENNA 50/8.6MG TAB PO SCH (20:45)
[2020-11-26] MEDS: POTASSIUM CHLORIDE CRTAB 20 MEQ TABCR PO SCH (20:45)
[2020-11-26] MEDS: METOPROLOL SUCC 25MG EXT REL TAB PO SCH (20:46)
[2020-11-26] MEDS: dilTIAZem ER 180 MG CAPCR PO SCH (20:46)
[2020-11-26] MEDS: MONTELUKAST SODIUM 10 MG TABLET PO SCH (20:46)
[2020-11-26] MEDS: ROSUVASTATIN CALCIUM 5 MG TAB PO SCH (20:47)
[2020-11-27] MEDS: ACETAMINOPHEN 500 MG TAB PO PRN ×2 (02:11→18:59)
[2020-11-27] MEDS: oxyCODONE HCL IR 5 MG TAB (IMMEDIATE RELEASE) PO PRN ×5 (02:42→20:38)
[2020-11-27] MEDS: POLYETHYLENE (MIRALAX) 17 GM PACK PO SCH ×4 (05:06→23:31)
[2020-11-27] MEDS: FLUTICASONE FUROATE 100MCG 14 PUFFS/INHALER INH SCH (08:47)
[2020-11-27] MEDS: DEXAMETHASONE SOD PHOSPHATE 8 MG in SYRINGE 0 ML IV SCH (08:48)
[2020-11-27] MEDS: CYANOCOBALAMIN 500 MCG TABLET (VITAMIN B-12) PO SCH ×3 (08:48→20:42)
[2020-11-27] MEDS: TRIAMTERENE/HCTZ 37.5/25MG TAB PO SCH (08:48)
[2020-11-27] MEDS: POTASSIUM CHLORIDE CRTAB 20 MEQ TABCR PO SCH ×2 (08:48→20:40)
[2020-11-27] MEDS: BACLOFEN 10 MG TAB PO SCH ×2 (08:49→20:39)
[2020-11-27] MEDS: CHOLECALCIFEROL 1,000 UNITS 25 MCG TAB PO SCH (08:49)
[2020-11-27] MEDS: DULoxetine HCL 60 MG CAP PO SCH (08:49)
[2020-11-27] MEDS: PREGABALIN 150 MG CAP PO SCH ×3 (08:52→20:47)
[2020-11-27] MEDS: ALPRAZolam 0.5 MG TABLET PO SCH ×3 (08:52→20:47)
[2020-11-27] MEDS ORDERED: bisacodyL 10 MG SUPP PR PRN (10:56)
--- NOTE | 2020-11-27 11:22 | Orthopedic Progress Note ---
Date of Service November 27, 2020 Assessment & Plan (1) Neurogenic claudication due to lumbar spinal stenosis: Admission and Anticipated Discharge Date Admission Date: November 25, 2020 At this time we will continue physical therapy monitor RYAN output anticipate di scharge home in the next day or so. Subjective Back pain is controlled still struggling with some right leg sciatica and IT band issues. Physical Exam Physical Exam: On exam she does appear comfortable is good strength testing. Results & Data ([facility]) Vital Signs (Past 12 Hours) Vital Signs Temp Pulse Pulse Resp BP Pulse Ox 11/27/20 09:00 50 L 110/66 96 11/27/20 07:32 36.7 C 48 L 16 103/57 L 96 11/26/20 23:54 36.6 C 57 L 17 115/57 L 97
[2020-11-27] MEDS: PANTOprazole 40 MG TAB PO SCH (20:38)
[2020-11-27] MEDS: DOCUSATE SODIUM/SENNA 50/8.6MG TAB PO SCH (20:39)
[2020-11-27] MEDS: MONTELUKAST SODIUM 10 MG TABLET PO SCH (20:39)
[2020-11-27] MEDS: dilTIAZem ER 180 MG CAPCR PO SCH (20:40)
[2020-11-27] MEDS: ROSUVASTATIN CALCIUM 5 MG TAB PO SCH (20:40)
[2020-11-27] MEDS: METOPROLOL SUCC 25MG EXT REL TAB PO SCH (20:42)
[2020-11-28] MEDS: oxyCODONE HCL IR 5 MG TAB (IMMEDIATE RELEASE) PO PRN ×3 (00:52→13:38)
[2020-11-28] MEDS: ACETAMINOPHEN 500 MG TAB PO PRN (03:09)
[2020-11-28] MEDS: POLYETHYLENE (MIRALAX) 17 GM PACK PO SCH ×2 (04:16→11:53)
--- NOTE | 2020-11-28 08:13 | Discharge Summary ---
Date of Service November 28, 2020 Admission HPI Per Admitting Provider This is a 65-year-old female well-known to me the presents with chronic persistent back and bilateral leg pain. Failing course of nonoperative care is here for surgical invention. Principal Diagnosis Lumbar spinal stenosis with neurogenic claudication Discharge Data Allergies Allergy/AdvReac Type Severity Reaction Status Date / Time topiramate [From Topamax] Allergy Severe Chest Pain Verified 10/29/20 15:12 adhesive AdvReac Severe blisters Verified 10/29/20 15:12 metoclopramide [From Reglan] AdvReac Intermediate skin Verified 10/29/20 15:52 crawling Consultations 11/25/20 13:02 Consult Case Management - Discharge Planning Routine Consult Hospitalist Routine Procedures Performed Operation Date: 11/25/20 07:45 Actual Procedures p L2-L3 and L5-S1 Decompression and Fusion, L2-S1 Fusion, Spinal Cord Monitoring, Application of Bone Morphogenetic Protein and Allograft, Interbody Placement L2-L3, L5-S1 - Stiven Cárdenas DO s L3-L5 Hardware Removal - Stiven Cárdenas DO Ordered Studies 11/25/20 07:45 FL fluoroscopy <1hr Routine FL lumbar spine 2-3V Routine Hospital Course (1) Neurogenic claudication due to lumbar spinal stenosis: Patient underwent multilevel lumbar decompression fusion tolerated so was taken to orthopedic for postoperative. Postop day 1 she was up and ambulating. Postop day #2 on postop day 3 RYAN drain decreased probably. Pain controlled. Surgically discharged home. Discharge orders and instructions found the chart for further review. Total Time Total Time Spent Total Time Spent (In Minutes): 20 minutes Discharge Plan Discharge Items Patient Disposition: Home - Self-Care Reason For Visit: Spinal Senosis Lumbar Region with Neurogenic Discharge Diagnosis: Lumbar spinal stenosis with neurogenic claudication Activity: As commented below Non-emergency contact: Primary Care Provider Call non-emergency contact if: you have any medication questions Follow-up/Referrals: PCP,NO [Primary Care Provider] - Diet: Regular Addtl Attending Provider Instructions: ACTIVITY RECOMMENDATIONS: SELF CARE INSTRUCTIONS AFTER THORACIC/LUMBAR FUSIONS 1. You may walk to your tolerance. It is good exercise for your legs and back. Expect some back and intermittent leg aches and pains. 2. You may perform "counter-top" level activities (make a sandwich, amanda with a project, etc.). 3. No bending or lifting of more than 10 pounds or back twisting of any nature (roll like a log when turning in bed). 4. You may ride in a car for 20-30 minutes at a time. No driving until after your first visit with your doctor. 5. Frequent changes of position and restricting sitting to 30 minutes at a time will help limit the amount of back spasms and stiffness you may experience. 6. You may discontinue the use of ambulatory aids (cane, crutches, etc.) once your strength and confidence allow. 7. You may gasoline engine assembler the shower and let water strike your incision when you arrive home at least once daily. Do not take a tub bath, sit in a hot tub or go into a swimming pool until after your first recheck in the office. SPECIAL CARE INSTRUCTIONS: VERY IMPORTANT TO READ AND REVIEW A. Your surgical incision has been closed with a cosmetic suture under the skin that will dissolve in about 6 weeks. In 14 days, you can use a pair of clean scissors and cut the suture that is left outside of the skin at the ends of your incision. 1. The small skin tapes can be removed 7 days after surgery if they have not fallen off by that point. 2. You may keep the wound open to air as much as possible to promote healing after post-op day number 5 unless told otherwise by your doctor. 3. If you think the wound looks like it is becoming infected (redness or worsening drainage) and/or you are experiencing fever, chill or worsening back pain and muscle spasms, contact the office so that we may evaluate you as soon as possible. B. Complications are uncommon, but please contact us if you have any signs or symptoms of: 1. wound infection (fever higher than 102.5 degrees F, redness, separation of wound, drainage, or increasing pain from the incision) 2. blood clots in legs (pain, swelling, redness and warmth in legs) 3. urinary tract infection (fever higher than 102.5 degrees F, burning upon urination or increased frequency of urination) 4. nerve problems (inability to walk on your toes or heels, numbness, loss of bowel or bladder control) 5. any other symptoms that concern you C. Please call the office at if you have any concerns or quest ions about your operation or recovery. D. No smoking! Smoking drastically decreases the chance of a solid fusion. E. Do not take any anti-inflammatory medications (Indocin, Advil, Motrin, Aspirin, Naprosyn, etc.) as these may inhibit the chance of a solid fusion. Tylenol is okay to take for pain. MANAGING PAIN AFTER SPINAL SURGERY 1. Narcotic medication is intended for short-term use and will be provided for surgical pain. Surgical pain usually lasts for a period of 4-6 weeks. Narcotic medication includes Percocet, Vicodin, Darvocet, Tylenol #3 or Lortab. 2. Longer-term pain is more appropriately treated with non-narcotic medication such as Tylenol ES. 3. Muscle spasm is not appropriately treated with narcotics. Muscle relaxers such as Soma, Flexeril or Skelaxin can be used along with Tylenol ES. 4. Remember that we all live with some "aches and pains". This is not unusual or uncommon after an injury or as we get older. a. Back pain is expected and may include muscle spasms for 4 to 6 weeks after surgery. The pain should gradually improve. If the pain worsens for no apparent reason, please contact the office. b. Intermittent leg pain may also be experienced and should not be concerned about unless it worsens for no apparent reason. If so, please contact the office. 5. We will provide appropriate medication within the normal guidelines of their prescribed use. We will also be very cautious and aware of potential abuse and extended duration of patients' medication needs. a. Pain medications are for your comfort and to assist with sleep and rest so that the tissue can heal. They are not provided in order to return to normal activity and should not be used through the day. To do so or worsening pain at night can result from ongoing tissue damage and development of tolerance to the prescribed medicine. 6. Please allow 2-3 days to process refills. Prescriptions will not be mailed but must be picked up at the office. FOLLOW UP VISIT: Keep your scheduled follow-up appointment. Any questions, please call the office at . Pending Studies at Discharge: No Stand-Alone Forms: My Nearly[employer]eds, Smoking Cessation Medications and DC Order Prescriptions: New tramadol 50 mg tablet 50 mg PO Q6H PRN (Reason: pain, moderate) Qty: 30 RF: 0 oxycodone 5 mg tablet 5 mg PO Q6H PRN (Reason: pain, severe) Qty: 30 RF: 0 Continued diltiazem HCl 180 mg Capsule,Extended Release 24 Hr 180 mg PO HS RF: 0 alprazolam 0.5 mg Tablet 0.5 mg PO TID RF: 0 baclofen 10 mg Tablet 10 mg PO BID RF: 0 pantoprazole 40 mg Tablet,Delayed Release (Dr/Ec) 40 mg PO QPM RF: 0 montelukast 10 mg Tablet 10 mg PO QPM RF: 0 metoprolol succinate 25 mg Tablet Extended Release 24 Hr 25 mg PO HS RF: 0 rosuvastatin 5 mg Tablet 5 mg PO QPM RF: 0 duloxetine 60 mg Capsule,Delayed Release(Dr/Ec) 60 mg PO QAM RF: 0 potassium chloride 20 mEq Tablet Extended Release 20 meq PO QAM RF: 0 Apple Cider Vinegar Gummies 2 tab PO QAM RF: 0 rizatriptan 10 mg Tablet 10 mg PO UD PRN (Reason: migraines) RF: 0 cyanocobalamin (vitamin B-12) [Vitamin B-12] 500 mcg Tablet 500 mcg PO TID RF: 0 magnesium 250 mg Tablet 250 mg PO DAILY PRN (Reason: muscle cramps) RF: 0 azelastine 137 mcg (0.1 %) Aerosol,[place] 1 spray INTRANASAL BID RF: 0 albuterol sulfate [ProAir HFA] 90 mcg/actuation Hfa Aerosol Inhaler 1 inh INHALATION QID PRN (Reason: sob) RF: 0 Flovent HFA 110 mcg/actuation Hfa Aerosol Inhaler 1 puff INHALATION BID RF: 0 elderberry fruit 200 mg Capsule 200 mg PO QAM RF: 0 pregabalin [Lyrica] 150 mg Capsule 150 mg PO TID RF: 0 cholecalciferol (vitamin D3) [Vitamin D3] 25 mcg (1,000 unit) Tablet 75 mcg PO QAM RF: 0 cannabidiol 100 mg/mL Solution 150 mg PO BID PRN (Reason: Pain) RF: 0 triamterene-hydrochlorothiazid 75-50 mg Tablet 1 tab PO QAM RF: 0 Discontinued diclofenac sodium 75 mg Tablet,Delayed Release (Dr/Ec) 75 mg PO BID RF: 0 oxycodone-acetaminophen 7.5-325 mg Tablet 1 tab PO TID PRN (Reason: Pain) RF: 0 Discharge Orders: Discharge Order (Routine); Ordered 11/28/20 Ordered By: Stiven Cárdenas Admission Data Admit Date/Time: 11/25/20 11:32 Attending Provider: Stiven Cárdenas Admit Provider: Stiven Cárdenas Primary Care Provider: PCP,NO Other Providers: Pablo Nur
[2020-11-28] MEDS: DEXAMETHASONE SOD PHOSPHATE 8 MG in SYRINGE 0 ML IV SCH (08:20)
[2020-11-28] MEDS: DULoxetine HCL 60 MG CAP PO SCH (08:21)
[2020-11-28] MEDS: FLUTICASONE FUROATE 100MCG 14 PUFFS/INHALER INH SCH (08:21)
[2020-11-28] MEDS: POTASSIUM CHLORIDE CRTAB 20 MEQ TABCR PO SCH (08:21)
[2020-11-28] MEDS: CHOLECALCIFEROL 1,000 UNITS 25 MCG TAB PO SCH (08:22)
[2020-11-28] MEDS: BACLOFEN 10 MG TAB PO SCH (08:22)
[2020-11-28] MEDS: CYANOCOBALAMIN 500 MCG TABLET (VITAMIN B-12) PO SCH ×2 (08:22→13:34)
[2020-11-28] MEDS: TRIAMTERENE/HCTZ 37.5/25MG TAB PO SCH (08:22)
[2020-11-28] MEDS: ALPRAZolam 0.5 MG TABLET PO SCH ×2 (08:26→13:34)
[2020-11-28] MEDS: PREGABALIN 150 MG CAP PO SCH ×2 (08:26→13:34)
== END 2020-11-28 15:09 | disposition home or self-care (01) | DRG 454 ==
LOC: ASU 06:07 → 3E 11:32 → SUATTDRO 11:32

== ENCOUNTER 2022-04-01 08:02 | Inpatient (IN) ==
--- NOTE | 2022-03-09 15:59 | PAT Medication Instructions ---
Medication Instructions Date of Service March 09, 2022 Home Medications Apple Cider Vinegar Gummies 2 tab PO QAM albuterol sulfate 90 mcg/actuation aerosol inhaler (ProAir HFA) 1 inh INHALATION UD PRN alprazolam 0.5 mg tablet 0.5 mg PO TID azelastine 137 mcg (0.1 %) nasal spray aerosol 1 spray INTRANASAL BID baclofen 10 mg tablet 10 mg PO BID cannabidiol 100 mg/mL oral solution 150 mg PO BID PRN cholecalciferol (vitamin D3) 25 mcg (1,000 unit) tablet (Vitamin D3) 75 mcg PO QAM cyanocobalamin (vitamin B-12) 500 mcg tablet (Vitamin B-12) 500 mcg PO DAILY diltiazem HCl 180 mg capsule,24 hr,extended release 180 mg PO HS duloxetine 60 mg capsule,delayed release 60 mg PO QAM magnesium 250 mg tablet 250 mg PO UD PRN metoprolol succinate 25 mg tablet,extended release 24 hr 25 mg PO HS montelukast 10 mg tablet 10 mg PO QPM pantoprazole 40 mg tablet,delayed release 40 mg PO QPM potassium chloride 20 mEq tablet,extended release 20 meq PO BID pregabalin 150 mg capsule (Lyrica) 150 mg PO TID rizatriptan 10 mg tablet 10 mg PO UD PRN rosuvastatin 5 mg tablet 5 mg PO QPM triamterene 75 mg-hydrochlorothiazide 50 mg tablet 1 tab PO QAM oxycodone 5 mg tablet 5 mg PO UD PRN STOP taking 2 weeks before surgery (or as soon as possible if surgery is within 2 weeks) Apple Cider Vinegar Gummies 2 tab PO QAM DO NOT take the morning of surgery baclofen 10 mg tablet 10 mg PO BID cannabidiol 100 mg/mL oral solution 150 mg PO BID PRN cholecalciferol (vitamin D3) 25 mcg (1,000 unit) tablet (Vitamin D3) 75 mcg PO QAM cyanocobalamin (vitamin B-12) 500 mcg tablet (Vitamin B-12) 500 mcg PO DAILY magnesium 250 mg tablet 250 mg PO UD PRN potassium chloride 20 mEq tablet,extended release 20 meq PO BID triamterene 75 mg-hydrochlorothiazide 50 mg tablet 1 tab PO QAM Take morning of surgery With a small sip of water, OTHERWISE NOTHING TO EAT OR DRINK AFTER MIDNIGHT: albuterol sulfate 90 mcg/actuation aerosol inhaler (ProAir HFA) 1 inh INHALATION UD PRN (use if needed; please bring rescue inhaler with you to hospital day of surgery if possible) alprazolam 0.5 mg tablet 0.5 mg PO TID azelastine 137 mcg (0.1 %) nasal spray aerosol 1 spray INTRANASAL BID duloxetine 60 mg capsule,delayed release 60 mg PO QAM pregabalin 150 mg capsule (Lyrica) 150 mg PO TID rizatriptan 10 mg tablet 10 mg PO UD PRN (if needed) oxycodone 5 mg tablet 5 mg PO UD PRN (okay to take up to 4 hours prior to surgery if needed) Take evening before surgery albuterol sulfate 90 mcg/actuation aerosol inhaler (ProAir HFA) 1 inh INHALATION UD PRN (if needed) alprazolam 0.5 mg tablet 0.5 mg PO TID azelastine 137 mcg (0.1 %) nasal spray aerosol 1 spray INTRANASAL BID baclofen 10 mg tablet 10 mg PO BID cannabidiol 100 mg/mL oral solution 150 mg PO BID PRN (if needed) diltiazem HCl 180 mg capsule,24 hr,extended release 180 mg PO HS magnesium 250 mg tablet 250 mg PO UD PRN (if needed) metoprolol succinate 25 mg tablet,extended release 24 hr 25 mg PO HS montelukast 10 mg tablet 10 mg PO QPM pantoprazole 40 mg tablet,delayed release 40 mg PO QPM potassium chloride 20 mEq tablet,extended release 20 meq PO BID pregabalin 150 mg capsule (Lyrica) 150 mg PO TID rizatriptan 10 mg tablet 10 mg PO UD PRN (if needed) rosuvastatin 5 mg tablet 5 mg PO QPM oxycodone 5 mg tablet 5 mg PO UD PRN (if needed) Other Notes If you have any questions please call us at [phone] or [phone] or [phone] or [phone]
--- NOTE | 2022-03-11 12:13 | Anesthesiology Consultation ---
Date of Service March 11, 2022 Assessment & Plan (1) Encounter for pre-operative examination: - Awaiting surgeon-ordered PCP preop evaluation (Dr. Ravin Crawford; 02/14). - Cardiology office visit (03/03/22): " Stress testing in July 2021 showed no angina, no EKG changes, normal perfusion, normal EF.. Heart palpitations are present, possibly slightly more frequent as she is only taking total daily dose of 90 mg of Cardizem. We will change to 300 mg q.i.d.. She is felt to be a reasonable candidate for the planned orthopedic surgery on her low back. Recent stress test was normal." Most recent stress test in our records are from 2017. Awaiting 2020 stress test report mentioned in cardiology office visit (Dr. Korey Galan). - COVID screening: Per assessment on 03/11: No known COVID-19 positive contacts or current COVID-19 related symptoms. Travel screen negative. Patient vaccinated. Surgeon arranging preop COVID testing. Awaiting results. Chart Review Chart Review: Patient seen in Pre Admission Testing Teaching & Discussion Pre-Anesthesia Teaching/Discussion Notes: Instructed NPO after midnight before surgery,except medications with 15 cc of water. Medication instructions provided according to the PAT guidelines. History Surgery Operation Date: 04/01/22 07:45 Proposed Procedures p T11-L2 Decompression and Fusion Spinal Cord Monitoring - Stiven Cárdenas DO Height/Weight Height: 5 ft 7 in Weight: 123.5 kg Allergies Allergy/AdvReac Type Severity Reaction Status Date / Time adhesive Allergy Unknown blisters Verified 03/09/22 15:05 topiramate [From Topamax] Allergy Unknown Chest Pain Verified 03/09/22 15:05 metoclopramide [From Reglan] AdvReac Unknown skin Verified 03/09/22 15:05 crawling Medications Home Medications Medication Instructions Recorded Confirmed Last Taken Apple Cider Vinegar Gummies 2 tab PO QAM 10/29/20 03/09/22 Unknown albuterol sulfate 90 mcg/actuation 1 inh INHALATION UD PRN 10/29/20 03/09/22 11/25/20 04:00 aerosol inhaler (ProAir HFA) alprazolam 0.5 mg tablet 0.5 mg PO TID 10/29/20 03/09/22 11/25/20 04:00 azelastine 137 mcg (0.1 %) nasal 1 spray INTRANASAL BID 10/29/20 03/09/22 11/25/20 04:00 spray aerosol baclofen 10 mg tablet 10 mg PO BID 10/29/20 03/09/22 11/25/20 04:00 cannabidiol 100 mg/mL oral solution 150 mg PO BID PRN 10/29/20 03/09/22 11/25/20 04:00 cholecalciferol (vitamin D3) 25 75 mcg PO QAM 10/29/20 03/09/22 Unknown mcg (1,000 unit) tablet (Vitamin D3) cyanocobalamin (vitamin B-12) 500 500 mcg PO DAILY 10/29/20 03/09/22 11/20/20 mcg tablet (Vitamin B-12) diltiazem HCl 180 mg capsule,24 180 mg PO QID 10/29/20 03/11/22 11/24/20 22:00 hr,extended release duloxetine 60 mg capsule,delayed 60 mg PO QAM 10/29/20 03/09/22 11/24/20 release magnesium 250 mg tablet 250 mg PO UD PRN 10/29/20 03/09/22 11/24/20 20:00 metoprolol succinate 25 mg 25 mg PO HS 10/29/20 03/09/22 11/24/20 20:00 tablet,extended release 24 hr montelukast 10 mg tablet 10 mg PO QPM 10/29/20 03/09/22 11/24/20 20:00 pantoprazole 40 mg tablet,delayed 40 mg PO QPM 10/29/20 03/09/22 11/24/20 08:00 release potassium chloride 20 mEq 20 meq PO BID 10/29/20 03/09/22 Unknown tablet,extended release pregabalin 150 mg capsule (Lyrica) 150 mg PO TID 10/29/20 03/09/22 11/25/20 04:00 rizatriptan 10 mg tablet 10 mg PO UD PRN 10/29/20 03/09/22 Unknown rosuvastatin 5 mg tablet 5 mg PO QPM 10/29/20 03/09/22 11/24/20 20:00 triamterene 75 1 tab PO QAM 10/29/20 03/09/22 11/24/20 20:00 mg-hydrochlorothiazide 50 mg tablet oxycodone 5 mg tablet 5 mg PO UD PRN 03/09/22 03/09/22 Unknown diclofenac sodium 75 mg 75 mg PO BID 03/11/22 03/11/22 Unknown tablet,delayed release Past Medical History Medical History Anxiety Asthma controlled Chiari malformation s/p craniotomy x 2 for repair Chronic back pain Degenerative disc disease Depression GERD (gastroesophageal reflux disease) controlled Hemangioma of liver x2 -- monitoring Hiatal hernia History of anemia s/p back surgery 11/2020 No known hx blood transfusion History of fractured vertebra Lumbar region Hydrocephalus [employer] (~1997), no recent issues, monitored by PCP Hyperlipidemia Hypertension Kidney stones Hx Meniere's disease Morbid obesity Osteoarthritis Sleep apnea CPAP (compliant) SVT (supraventricular tachycardia) Hx, follows with Dr. Korey Galan Exercise / Class Metabolic Activity III < 4 Walking/Shop/Light housework Past Family History Family History Other Family history of colon cancer in mother Family history of diabetes mellitus in father No family history of adverse response to anesthesia Past Surgical History Surgical History H/O craniotomy x2 to repair chiari malformation with a revision from a bovine patch H/O laminectomy C1-C2 - full rom H/O vaginal hysterectomy History of cardiac cath 20+ years ago -- no stents. History of cataract surgery bilateral History of cholecystectomy History of colonoscopy History of cystocele cystocele repair History of esophagogastroduodenoscopy (EGD) History of left knee replacement History of repair of rectocele History of revision of total replacement of right knee joint History of right knee joint replacement History of thyroidectomy, subtotal thyroid nodule. no medication. History of tonsillectomy Nausea and vomiting after administration of anesthetic agent S/P lumbar fusion L2-3, L5-S1 decompression fusion, L3-5 hardware removal (11/25/2020): Grade view 1 with elective glide scope #3, easy, atraumatic at [facility]. Per post-op anesthesia progress note, " Pt received 300 mcg of fentanyl intraop. At the end of the case, pt apneic. After being given narcan, the patient began to SV and was responding to voice. Sent to PACU and did well in recovery. OK to discharge to floor but continuos pulse oximetry monitoring order placed." S/P [employer] [place], [place] (1997) Past Anesthesia History No Family Hx of Anesthesia Complications and Other (Post-op hypotension after back surgery (per pt, became persistent/orthostatic for several months following surgery)) L2-3, L5-S1 decompression fusion, L3-5 hardware removal (11/25/2020): Grade view 1 with elective glide scope #3, easy, atraumatic at [facility]. Per post-op anesthesia progress note, " Pt received 300 mcg of fentanyl intraop. At the end of the case, pt apneic. After being given narcan, the patient began to SV and was responding to voice. Sent to PACU and did well in recovery. OK to discharge to floor but continuos pulse oximetry monitoring order placed." History of PONV No Hx of Motion Sickness and History of PONV Social History Smoking Status: Never smoker Do You Dip or Chew Tobacco: No Hx Alcohol Use: Yes (VERY RARELY) Hx Substance Use: No Review of Systems Patient denies chest pain, shortness of breath, fever, chills, cough, wheezing, palpitations. Physical Exam Vital Signs VITALS BP 131/76 P 52 TEMP 98.7 SP02 95%RA RESP 16 PHYSICAL Full cervical extension range of motion. Full TMJ range of motion. TMD 2.5 finger breaths Mallampati Score 3 Dentition: intact, + crowns (several) Lungs: clear throughout to auscultation Cardiac: regular rate and rhythm, no murmurs noted Spine: normal Carotid arteries: negative bruit Extremities: no edema Lab Results Anesthesia Preop Results Results Anesthesia Widget: WBC 4.72 K/uL (4.8-10.8) L 03/11/22 Hgb 13.5 g/dL (12.0-16.0) 03/11/22 Hct 40.3 % (37-47) 03/11/22 Plt 281 K/uL (130-400) 03/11/22 Na 140 mmol/L (136-145) 03/11/22 K 4.1 mmol/L (3.5-5.1) 03/11/22 Cl 104 mmol/L (98-107) 03/11/22 CO2 31 mmol/L (21-32) 03/11/22 BUN 23 mg/dl (6-23) 03/11/22 Creat 0.94 mg/dl (0.6-1.2) 03/11/22 Glucose Level 87 mg/dl (70-99(Fasting)) 03/11/22 PT 10.6 Seconds (9.0-12.0) 03/11/22 PTT 25.9 Seconds (21.0-31.0) 03/11/22 INR 1.0 (0.9-1.1) 03/11/22 Urine Color Yellow 03/11/22 Urine Appearance Clear (Clear) 03/11/22 Urine pH 7.5 (4.5-7.5) 03/11/22 Urine Specific [place] 1.013 (1.000-1.030) 03/11/22 Urine Protein Negative (Negative) 03/11/22 Urine Glucose (UA) Negative (Negative) 03/11/22 Urine Ketones Negative (Negative) 03/11/22 Urine Blood Negative (Negative) 03/11/22 Urine Nitrite Negative (Negative) 03/11/22 Urine Bilirubin Negative (Negative) 03/11/22 Urine Urobilinogen Negative (Negative) 03/11/22 Urine Leukocyte Esterase 1+ (Negative) H 03/11/22 Urine WBC (Auto) 1-5 /hpf (0-5) 03/11/22 Urine RBC (Auto) 0-4 /hpf (0-4) 03/11/22 Urine Hyaline Casts (Auto) 0 /lpf (0-5) 03/11/22 Urine Epithelial Cells (Auto) >30 /lpf (0-5) H 03/11/22 Urine Bacteria (Auto) Negative (Negative) 03/11/22 Blood Type A Positive 03/11/22 Antibody Screen NEGATIVE 03/11/22 Testing Electrocardiogram Date: 03/11/22 SB at 49bpm. Unconfirmed report. Chest X-Ray Date: 03/11/22 FINDINGS: Lung volumes are normal. Lungs are clear. There is no pneumothorax or pleural effusion. Cardiac size is normal. Mediastinal contours are normal. There is no evidence for pulmonary edema. A hiatal hernia is noted. Postoperative findings within the lumbar spine are partially imaged. Loss of height of an adjacent vertebral body is noted. IMPRESSION: No acute cardiopulmonary findings. Echocardiogram Date: 01/14/17 EF 55%. No RWMA. No significant valvular disease. Stress Test Date: 01/14/17 Type: nuclear LV perfusion is normal. Study is normal low risk scan. LVEF is normal (50- 70%). No Lexiscan induced EKG changes. 49% MPHR.
[~2022-04-01 08:02] MED LIST changes: +GABAPENTIN 300 MG CAP PO SCH; -GABAPENTIN 600 MG DOSE PO SCH
[2022-04-01] MEDS ORDERED: NEOSTIGMINE METHYLSULFATE 1 MG/ML 10ML VIAL ONE (08:33)
[2022-04-01] MEDS ORDERED: ROCURONIUM BROMIDE 10 MG/ML 5 ML VIAL IV ONE (08:33)
[2022-04-01] MEDS ORDERED: fentaNYL citrate 100 MCG/2 ML VIAL ONE (08:33)
[2022-04-01] MEDS ORDERED: ONDANSETRON INJ 2 MG/ML 2 ML VIAL ONE ×2 (08:33→11:49)
[2022-04-01] MEDS ORDERED: PROPOFOL IV EMULSION 10 MG/ML 20 ML VIAL IV ONE (08:33)
[2022-04-01] MEDS ORDERED: MIDAZOLAM HCL 1 MG/ML 2ML VIAL ONE (08:33)
[2022-04-01] MEDS ORDERED: GLYCOPYRROLATE 0.2 MG/ML VIAL ONE (08:33)
[2022-04-01] MEDS ORDERED: LIDOCAINE 2% 2 ML VIAL/AMP(20MG/ML) INFIL ONE (08:33)
--- NOTE | 2022-04-01 09:12 | History & Physical Bridge Note ---
Date of Service April 01, 2022 History & Physical Bridge Note I have examined the patient, reviewed the History & Physical and in the interval since the performance of the History & Physical I have noted the following changes of clinical significance: no changes noted
--- NOTE | 2022-04-01 09:13 | History & Physical Report ---
Date of Service April 01, 2022 Assessment & Plan (1) Neurogenic claudication due to lumbar spinal stenosis: Plan: T11-L2 decompression and fusion, possible T 10 T11 History of Present Illness Chief Complaint: Back and leg pain Primary Care Provider: Ravin Crawford This is a 66-year-old female who presents with chronic persistent back and leg pain. Failing course of nonoperative care she is here for surgical invention. Allergies Allergy/AdvReac Type Severity Reaction Status Date / Time adhesive Allergy Unknown blisters Verified 04/01/22 08:41 topiramate [From Topamax] Allergy Unknown Chest Pain Verified 04/01/22 08:41 metoclopramide [From Reglan] AdvReac Unknown skin Verified 04/01/22 08:41 crawling Home Medications Medication Instructions Recorded Confirmed Type Apple Cider Vinegar Gummies 2 tab PO QAM 10/29/20 04/01/22 History albuterol sulfate 90 mcg/actuation 1 inh INHALATION UD PRN 10/29/20 04/01/22 History aerosol inhaler (ProAir HFA) alprazolam 0.5 mg tablet 0.5 mg PO TID 10/29/20 04/01/22 History azelastine 137 mcg (0.1 %) nasal 1 spray INTRANASAL BID 10/29/20 04/01/22 History spray aerosol baclofen 10 mg tablet 10 mg PO BID 10/29/20 04/01/22 History cannabidiol 100 mg/mL oral solution 150 mg PO BID PRN 10/29/20 04/01/22 History cholecalciferol (vitamin D3) 25 75 mcg PO QAM 10/29/20 04/01/22 History mcg (1,000 unit) tablet (Vitamin D3) cyanocobalamin (vitamin B-12) 500 500 mcg PO DAILY 10/29/20 04/01/22 History mcg tablet (Vitamin B-12) diltiazem HCl 180 mg capsule,24 180 mg PO QID 10/29/20 04/01/22 History hr,extended release duloxetine 60 mg capsule,delayed 60 mg PO QAM 10/29/20 04/01/22 History release magnesium 250 mg tablet 250 mg PO UD PRN 10/29/20 04/01/22 History metoprolol succinate 25 mg 25 mg PO HS 10/29/20 04/01/22 History tablet,extended release 24 hr montelukast 10 mg tablet 10 mg PO QPM 10/29/20 04/01/22 History pantoprazole 40 mg tablet,delayed 40 mg PO QPM 10/29/20 04/01/22 History release potassium chloride 20 mEq 20 meq PO BID 10/29/20 04/01/22 History tablet,extended release pregabalin 150 mg capsule (Lyrica) 150 mg PO TID 10/29/20 04/01/22 History rizatriptan 10 mg tablet 10 mg PO UD PRN 10/29/20 04/01/22 History rosuvastatin 5 mg tablet 5 mg PO QPM 10/29/20 04/01/22 History triamterene 75 1 tab PO QAM 10/29/20 04/01/22 History mg-hydrochlorothiazide 50 mg tablet oxycodone 5 mg tablet 5 mg PO UD PRN 03/09/22 04/01/22 History diclofenac sodium 75 mg 75 mg PO BID 03/11/22 04/01/22 History tablet,delayed release Past Med/Surg History Medical History Anxiety Asthma controlled Chiari malformation s/p craniotomy x 2 for repair Chronic back pain Degenerative disc disease Depression GERD (gastroesophageal reflux disease) controlled Hemangioma of liver x2 -- monitoring Hiatal hernia History of anemia s/p back surgery 11/2020 No known hx blood transfusion History of fractured vertebra Lumbar region Hydrocephalus [employer] Shunt (~1997), no recent issues, monitored by PCP Hyperlipidemia Hypertension Kidney stones Hx Meniere's disease Morbid obesity Osteoarthritis Sleep apnea CPAP (compliant) SVT (supraventricular tachycardia) Hx, follows with Dr. Korey Galan Surgical History H/O craniotomy x2 to repair chiari malformation with a revision from a bovine patch H/O laminectomy C1-C2 - full rom H/O vaginal hysterectomy History of cardiac cath 20+ years ago -- no stents. History of cataract surgery bilateral History of cholecystectomy History of colonoscopy History of cystocele cystocele repair History of esophagogastroduodenoscopy (EGD) History of left knee replacement History of repair of rectocele History of revision of total replacement of right knee joint History of right knee joint replacement History of thyroidectomy, subtotal thyroid nodule. no medication. History of tonsillectomy Nausea and vomiting after administration of anesthetic agent S/P lumbar fusion L2-3, L5-S1 decompression fusion, L3-5 hardware removal (11/25/2020): Grade view 1 with elective glide scope #3, easy, atraumatic at [facility]. Per post-op anesthesia progress note, " Pt received 300 mcg of fentanyl intraop. At the end of the case, pt apneic. After being given narcan, the patient began to SV and was responding to voice. Sent to PACU and did well in recovery. OK to discharge to floor but continuos pulse oximetry monitoring order placed." S/P [employer] shunt [place], [place] (1997) Family History Other Family history of colon cancer in mother Family history of diabetes mellitus in father No family history of adverse response to anesthesia Social History Smoking Status: Never smoker Second Hand Exposure: Yes (as a child); Do You Dip or Chew Tobacco: No; Hx Alcohol Use: Yes (VERY RARELY) Hx Substance Use: No Preferred Language: Georgian Communication Ability: Effective Credit Product Analyst Required: No Beliefs That Will Affect Care: None marital status: Current Living Situation: Spouse Other Information That Helps Us Care for You: No Feels Safe at Home: Yes Assistive Devices: CPAP Assistive Devices Comment: UPRIGHT WALKER Physical Exam Physical Exam: Patient is alert and oriented Heart regular rhythm Lungs clear Results & Data Results & Data ([facility]) Vital Signs (Past 12 Hours) Vital Signs Temp Pulse Resp BP Pulse Ox 04/01/22 08:53 37 C 55 L 18 168/65 H 92
[2022-04-01] MEDS ORDERED: HYDROmorphone INJ 1 MG/ML SYRINGE IV PRN ×2 (09:37→13:52)
[2022-04-01] MEDS ORDERED: PROMETHAZINE HCL 12.5 MG in SODIUM CHLORIDE 0.9% 50 ML IV PRN ×2 (09:37→13:52)
[2022-04-01] MEDS ORDERED: ONDANSETRON INJ 2 MG/ML 2 ML VIAL IV PRN ×2 (09:37→13:52)
[2022-04-01] MEDS ORDERED: ePHEDrine sulfate 50 MG/ML AMP IV PRN (09:37)
[2022-04-01] MEDS ORDERED: fentaNYL citrate 100 MCG/2 ML VIAL IV PRN (09:37)
[2022-04-01] MEDS ORDERED: ATROPINE SULFATE 0.1 MG/ML 10ML SYR IV PRN (09:37)
[2022-04-01] MEDS ORDERED: BUPIVACAINE/EPINEPHRINE 0.25% 1:200,000 30 ML VIAL ONE (09:51)
[2022-04-01] MEDS ORDERED: ceFAZolin 330 MG/ML 1 GM VIAL ONE (09:52)
[2022-04-01] MEDS ORDERED: FLOSEAL HEMOSTATIC MATRIX 10ML TOP ONE (10:22)
[2022-04-01] MEDS ORDERED: DEXAMETHASONE SOD INJ 4 MG/ML VIAL ONE (10:25)
--- NOTE | 2022-04-01 12:10 | Operative Report ---
Post Operative Report Pre & Post Diagnosis Operation Date: 04/01/22 09:35 Pre-Op Diagnosis: (1) Neurogenic claudication due to lumbar spinal stenosis Post-Op Diagnosis: (1) Neurogenic claudication due to lumbar spinal stenosis I identified the patient and participated in the time-out.: Yes Procedure Operation Date: 04/01/22 09:35 Actual Procedures #1 lumbar decompression with bilateral medial facetectomies foraminotomies T12- L1 L1-L2. #2 posterior spinal fusion T10-L2. #3 placement posterior segmental instrumentation T10-L1 with connectors to L2-L3. #4 interbody fusion L1-L2. #5 placement of Spira 9 mm cage at L1-L2. #6 placement locally harvested morselized autograft in the posterior gutters. #7 placement of I factor and interbody space and infuse collagen sponge by master graft in the posterior lateral gutters. Surgeon Stiven Cárdenas, DO [employer] Roseanna Kelley Estimated Blood Loss 300 Findings See Below The patient is 5 feet 7 inches tall weighing over 120 kg with a BMI in excess of 41. The patient's body habitus did contribute to significant technical difficulty required deeper retractors longer instruments in order to perform her procedure. This at least 50% increased operative time. Specimens None Indications This is a 66-year-old female who presents with bulge diagnosis after failing course of nonoperative care she is here for surgical invention. Description of Procedure Patient was met with identified informed consent obtained. Patient was then taken to the operative suite underwent a patient placed in a prone position the Silas table with chest padded bolsters. All bony prominences well-padded eyes inspected to ensure no external pressure placed upon the. This point the thoracolumbar spine was prepped and draped in normal sterile fashion. Sharp dissection with the assistance of Bovie cautery was performed down to and exposing the lamina and transverse processes of [id number] L1 and instrumentation at L2-L3. And then performed a complete laminectomy of L1 partial laminectomy of T12 including bilateral medial facetectomies and foraminotomies addressing severe spinal stenosis and obvious inflammation from hypermobility. Pedicle screws were then placed in [id number] and L1 bilaterally with assistance of fluoroscopy. By way of transforaminal approach on right a complete discectomy of L1-L2 was performed endplates curetted to subcortically bone and a 9 x 22 mm Spira cage filled I factor tapped in position. A connectors was then attached to the L2-L3 section of the billy. In the process billy was contoured and locked in position. The transverse processes of T10-T11 T12-L1 and L2 burred to subcortical bleeding bone. Infuse collagen sponge master graft local autograft was placed in the posterior gutters. 15 round RYAN drain inserted. The incision was then closed with 1 Vicryl the fascia 2-0 Vicryl subcutaneously and 4 Monocryl for final skin closure. Steri-Strip sterile dressings placed. Patient waken taken PACU stable condition. Lastly Roseanna Kelley was present out the entire procedure and all the patient positioning complex portions of the surgery and final skin closure. I attest to the content of the Intraoperative Record and any orders documented therein. Any exceptions are noted below.
--- NOTE | 2022-04-01 12:38 | Fluoroscopy Report ---
FL thoracic spine 2V CLINICAL HISTORY: T10-L2 DECOMPRESSION COMPARISON STUDY: None FLUOROSCOPY TIME: 38 seconds. FLUOROSCOPIC IMAGES: 2 FINDINGS: AP and lateral C-arm images were obtained status post interpedicular screw and billy fixation . IMPRESSION: Status post interpedicular screw and billy fixation. ACT 112: Negative or not required by law. Electronically signed by: Spike Gilmore M.D. 04/01/2022 12:36 PM
[2022-04-01] MEDS ORDERED: METOCLOPRAMIDE HCL INJ 5 MG/ML 2 ML VIAL IV PRN (13:52)
[2022-04-01] MEDS ORDERED: FAMOTIDINE 20 MG TAB PO PRN (13:52)
[2022-04-01] MEDS ORDERED: DO NOT ADMINISTER FLU VACCINE PRN (13:52)
[2022-04-01] MEDS ORDERED: hydrOXYzine HCl 25 MG TAB PO PRN (13:52)
[2022-04-01] MEDS ORDERED: RIZATRIPTAN BENZOATE 10 MG TAB PO PRN (13:52)
[2022-04-01] MEDS ORDERED: CANNABIDIOL 100 MG/ML PO PRN (13:52)
[2022-04-01] MEDS ORDERED: bisacodyL 10 MG SUPP PR PRN (13:52)
[2022-04-01] MEDS ORDERED: NON-FORMULARY MEDICATION (Magnesium 250 mg Tablet) PO PRN (13:52)
[2022-04-01] MEDS ORDERED: ONDANSETRON 4 MG OD TAB PO PRN (13:52)
[2022-04-01] MEDS ORDERED: HYDROmorphone INJ 0.5 MG/0.5 ML SYR IV PRN (13:52)
[2022-04-01] MEDS ORDERED: SOD PHOSPHATE/SOD BIPHOSPHATE ENEMA 132 ML BTL PR PRN (13:52)
[2022-04-01] MEDS ORDERED: diphenhydrAMINE Capsule 25 MG CAP PO PRN (13:52)
[2022-04-01] MEDS ORDERED: LORazepam 2 MG/1 ML VIAL IV PRN (13:52)
[2022-04-01] MEDS ORDERED: DO NOT ADMINISTER PNEUMOCOCCAL VACCINE PRN (13:52)
[2022-04-01] MEDS ORDERED: NALOXONE HCL 0.4 MG/1 ML VIAL/CARP IV PRN (13:52)
[2022-04-01] MEDS ORDERED: MAGNESIUM HYDROXIDE SUSP 30 ML UDC PO PRN (13:52)
[2022-04-01] MEDS ORDERED: ACETAMINOPHEN 1,000 MG/100 ML VIAL IV PRN (13:52)
[2022-04-01] MEDS ORDERED: LORazepam 0.5 MG TAB PO PRN (13:52)
[2022-04-01] MEDS ORDERED: ALUMINUM/MAGNESIUM SUSP 30 ML UDC PO PRN (13:52)
[2022-04-01] MEDS ORDERED: ALBUTEROL HFA 8 GM INHALER INH PRN (13:57)
[2022-04-01] MEDS: SODIUM CHLORIDE 0.9% 1000ML 1,000 ML IV SCH ×2 (14:15→21:08)
[2022-04-01] MEDS: PREGABALIN 150 MG CAP PO SCH ×2 (14:15→21:01)
[2022-04-01] MEDS: ALPRAZolam 0.5 MG TABLET PO SCH ×2 (14:15→21:01)
--- NOTE | 2022-04-01 14:52 | Anesthesiology Progress Note ---
Date of Service April 01, 2022 Anesthesia Post Procedure Vital Signs Vital Signs: Temp Pulse Pulse Resp BP Pulse Ox 04/01/22 14:32 36.5 C 53 L 16 105/65 99 04/01/22 13:57 36.3 C L 75 16 145/74 H 93 04/01/22 13:30 71 19 156/67 H 96 04/01/22 13:20 36.5 C 72 17 150/63 H 96 04/01/22 13:10 73 16 145/93 H 96 04/01/22 13:00 77 16 160/74 H 94 04/01/22 12:50 76 19 168/79 H 97 04/01/22 12:40 36.2 C L 77 12 142/80 H 97 04/01/22 08:53 37 C 55 L 18 168/65 H 92 Pain Intensity Bilateral Back: Pain Intensity: 6 Transfer of Care Handoff Completed per policy Notes Mental Status: alert / awake / arousable and participated in evaluation Patient Amnestic to Procedure: Yes Nausea / Vomiting: adequately controlled Pain: adequately controlled Airway Patency, RR, SpO2: stable & adequate BP & HR: stable & adequate Hydration State: stable & adequate Anesthetic Complications: no major complications apparent and Pt Satisfied with anesthetic care
[2022-04-01] MEDS: ceFAZolin 2000MG 2,000 MG/15 ML SYR IV SCH (17:19)
[2022-04-01] MEDS: traMADol HCL 50 MG TABLET PO PRN ×2 (18:21→22:29)
[2022-04-01] MEDS: MONTELUKAST SODIUM 10 MG TABLET PO SCH (21:01)
[2022-04-01] MEDS: AZELASTINE HCL 0.1% NASAL 200 SPRAYS/27,400 MCG BTL SCH (21:01)
[2022-04-01] MEDS: POTASSIUM CHLORIDE CRTAB 20 MEQ TABCR PO SCH (21:02)
[2022-04-01] MEDS: BACLOFEN 10 MG TAB PO SCH (21:02)
[2022-04-01] MEDS: ROSUVASTATIN CALCIUM 5 MG TAB PO SCH (21:02)
[2022-04-01] MEDS: METOPROLOL SUCC 25MG EXT REL TAB PO SCH (21:03)
[2022-04-01] MEDS: PANTOprazole 40 MG TAB PO SCH (21:03)
[2022-04-01] MEDS: DOCUSATE SODIUM/SENNA 50/8.6MG TAB PO SCH (21:03)
[2022-04-01] MEDS: dilTIAZem HCL 30 MG TAB PO SCH (21:09)
[2022-04-02] MEDS: ceFAZolin 2000MG 2,000 MG/15 ML SYR IV SCH (01:22)
[2022-04-02] MEDS: traMADol HCL 50 MG TABLET PO PRN ×2 (02:47→07:40)
[2022-04-02] MEDS: oxyCODONE HCL IR 5 MG TAB (IMMEDIATE RELEASE) PO PRN ×4 (03:38→22:17)
[2022-04-02] MEDS: POLYETHYLENE (MIRALAX) 17 GM PACK PO SCH ×3 (06:08→17:56)
[2022-04-02] MEDS: ALPRAZolam 0.5 MG TABLET PO SCH ×3 (07:40→20:29)
[2022-04-02] MEDS: dexAMETHasone 6 MG in SYRINGE 0 ML IV SCH (07:40)
[2022-04-02] MEDS: PREGABALIN 150 MG CAP PO SCH ×3 (07:40→20:29)
[2022-04-02] MEDS: AZELASTINE HCL 0.1% NASAL 200 SPRAYS/27,400 MCG BTL SCH ×2 (07:40→20:31)
[2022-04-02] MEDS: POTASSIUM CHLORIDE CRTAB 20 MEQ TABCR PO SCH ×2 (07:41→20:31)
[2022-04-02] MEDS: CHOLECALCIFEROL 1,000 UNITS 25 MCG TAB PO SCH (07:41)
[2022-04-02] MEDS: BACLOFEN 10 MG TAB PO SCH ×2 (07:41→20:30)
[2022-04-02] MEDS: DULoxetine HCL 60 MG CAP PO SCH (07:41)
[2022-04-02] MEDS: TRIAMTERENE/HCTZ 37.5/25MG TAB PO SCH (07:41)
[2022-04-02] MEDS: dilTIAZem HCL 30 MG TAB PO SCH ×2 (07:42→20:30)
[2022-04-02] MEDS: CYANOCOBALAMIN (B-12) 500 MCG TABLET PO SCH (07:42)
--- NOTE | 2022-04-02 08:27 | Orthopedic Progress Note ---
Date of Service April 02, 2022 Assessment & Plan (1) Neurogenic claudication due to lumbar spinal stenosis: Plan: This time initiate physical therapy monitor RYAN output hopefully discharge home this weekend. Admission and Anticipated Discharge Date Admission Date: April 01, 2022 Subjective Back pain controlled leg symptoms markedly improved Physical Exam Physical Exam: Patient is good strength testing. Appears comfortable. Results & Data ([facility]) Vital Signs (Past 12 Hours) Vital Signs Temp Pulse Resp BP Pulse Ox 04/02/22 07:37 36.7 C 57 L 14 102/50 L 95 04/02/22 07:36 80 L 04/02/22 04:06 36.8 C 56 L 16 117/61 98 04/01/22 23:53 36.9 C 75 14 123/65 97 04/01/22 20:57 78 147/68 H 93
[2022-04-02 08:48] LABS: Hematocrit (blood only) 30.9 % (37-47); Hemoglobin 10.2 g/dL (12.0-16.0); Immature Granulocytes # (auto) 0.01 K/uL (0.00-0.02); Immature Granulocytes % (auto) 0.1 %; Lymphocytes # (auto) 0.62 K/uL (1.2-3.4); Lymphocytes % (auto) 8.9 %; Mean Corpuscular Hemoglobin 30.6 pg (25-34); Mean Corpuscular Volume 92.8 fL (80-100); Mean Platelet Volume 9.8 fL (7.4-10.4); Monocytes # (auto) 0.58 K/uL (0.11-0.59); Monocytes % (auto) 8.3 %; Neutrophils # (auto) 5.76 K/uL (1.4-6.5); Neutrophils % (auto) 82.7 %; Platelet Count 230 K/uL (130-400); RDW Coefficient of Variation 13.3 % (11.5-14.5); RDW Standard Deviation 44.8 fL (36.4-46.3); Red Blood Count 3.33 M/uL (4.2-5.4); White Blood Count 6.97 K/uL (4.8-10.8)
[2022-04-02 09:11] LABS: Calcium 8.8 mg/dl (8.5-10.1); Creatinine Clr Calc Pharmacy 94.4 ml/min; Est GFR (African American) 89.7 ml/min; Est GFR (Non-African American) 77.4 ml/min; Potassium 3.4 mmol/L (3.5-5.1)
[2022-04-02] MEDS ORDERED: HYDROmorphone INJ 1 MG/ML SYRINGE IV PRN (13:46)
--- NOTE | 2022-04-02 14:02 | Hospitalist Consultation ---
Date of Consultation April 02, 2022 Assessment & Plan (1) Neurogenic claudication due to lumbar spinal stenosis: s/p decompression and fusion on 04/[address] Cárdenas - Pain control in form of Decadron, OxyIR, and Dilaudid for breakthrough pain - Continue Lyrica and Baclofen - Recommend use of I/S q1h while awake for atelectasis/pna prevention - PT/OT eval - RYAN drain management as per primary service - Perioperative abx as per primary service - DVT ppx as per primary service (2) Hypokalemia: - Supplementation ordered, will repeat BMP in AM (3) HTN (hypertension): - On Metoprolol, Maxzide, and Cardizem, hold for SBP<100 or HR<55 - Actually slightly hypotensive (marginal at 99 systolic) likely combo of l ingering anesthesia effects + opioid pain meds (4) Dyslipidemia: - On Crestor which has been continued (5) Sleep apnea: - Utilizes CPAP, may use her own unit from home - weight loss is also recommended (6) Asthma: Asthma plus allergic rhinitis - Continue nasal spray, Singulair, benadryl - Continue Ventolin (7) Anxiety: - On Cymbalta and Xanax PRN Recommend repeat labs in AM (cbc, bmp, and mag). Instructed RN to give pt dose of Maxalt for her headache. Attempted to clean up pt's MAR to determine what medications are most effectively managing her pain. No further recommendations, will continue to follow. Thank you for allowing us to participate in this patient's care. Above plan of care to be d/w Dr. Amaral who will also see and evaluate this patient. Supervising Physician Co-Signing Physician Notes Patient seen and examined. Case discussed with RACHEL Alvarado. BP improving today, likely some post anesthesia hypotension. Agree with mngmnt as above. Continue MTP, Cardizem, triameterene-hctz with hold parameters. Adequate pain control at time of bedside assessment. Hemodynamically stable at bedside assessment. Breathing unlabored, RYAN drain with serosanginous material. Patient reports pain is OK and tolerable, 7/10 overall today. Breathing unlabored and CTAB, HR regular. Continue management as above History of Present Illness Reason for Consultation: medical management Requesting Physician: Dr. Cárdenas Attending Physician: Stiven Cárdenas, DO History of Present Illness Dia Cornman is a 66 yo WF wtih a pmhx of HTN, DLD, PSVT, PAT, asthma, fibromyalgia, KIKO, GERD, OA and lumbar disc disease who was hospitalized under Dr. Cárdenas's service for T11-L2 decompression and fusion due to ongoing back pain with radiculopathy after failing conservative management. Patient was taken to the OR on 04/01, had an uneventful perioperative course, and is seen today POD#1. Reports that she currently has a headache shortly after being medicated with Oxycodone with some photophobia. Has a h/o migraines, uses Maxalt PRN. She denies n/v or blurred vision. Reports that her lower back pain with radiation down her right leg have completely resolved. Does have a little bit of back discomfort around the area of her bra-strap. She denies cp, dyspnea, f/c, or gu symptoms. She has no loss of bowel/bladder control. Denies saddle anesthesias. She is eating/drinking well. Hospitalists were consulted for routine post-operative medical management. Allergies Allergy/AdvReac Type Severity Reaction Status Date / Time adhesive Allergy Unknown blisters Verified 04/01/22 08:41 topiramate [From Topamax] Allergy Unknown Chest Pain Verified 04/01/22 08:41 metoclopramide [From Reglan] AdvReac Unknown skin Verified 04/01/22 08:41 crawling Home Medications Medication Instructions Recorded Confirmed Type Apple Cider Vinegar Gummies 2 tab PO QAM 10/29/20 04/01/22 History albuterol sulfate 90 mcg/actuation 1 inh INHALATION UD PRN 10/29/20 04/01/22 History aerosol inhaler (ProAir HFA) alprazolam 0.5 mg tablet 0.5 mg PO TID 10/29/20 04/01/22 History azelastine 137 mcg (0.1 %) nasal 1 spray INTRANASAL BID 10/29/20 04/01/22 History spray aerosol baclofen 10 mg tablet 10 mg PO BID 10/29/20 04/01/22 History cannabidiol 100 mg/mL oral solution 150 mg PO BID PRN 10/29/20 04/01/22 History cholecalciferol (vitamin D3) 25 75 mcg PO QAM 10/29/20 04/01/22 History mcg (1,000 unit) tablet (Vitamin D3) cyanocobalamin (vitamin B-12) 500 500 mcg PO DAILY 10/29/20 04/01/22 History mcg tablet (Vitamin B-12) diltiazem HCl 180 mg capsule,24 180 mg PO QID 10/29/20 04/01/22 History hr,extended release duloxetine 60 mg capsule,delayed 60 mg PO QAM 10/29/20 04/01/22 History release magnesium 250 mg tablet 250 mg PO UD PRN 10/29/20 04/01/22 History metoprolol succinate 25 mg 25 mg PO HS 10/29/20 04/01/22 History tablet,extended release 24 hr montelukast 10 mg tablet 10 mg PO QPM 10/29/20 04/01/22 History pantoprazole 40 mg tablet,delayed 40 mg PO QPM 10/29/20 04/01/22 History release potassium chloride 20 mEq 20 meq PO BID 10/29/20 04/01/22 History tablet,extended release pregabalin 150 mg capsule (Lyrica) 150 mg PO TID 10/29/20 04/01/22 History rizatriptan 10 mg tablet 10 mg PO UD PRN 10/29/20 04/01/22 History rosuvastatin 5 mg tablet 5 mg PO QPM 10/29/20 04/01/22 History triamterene 75 1 tab PO QAM 10/29/20 04/01/22 History mg-hydrochlorothiazide 50 mg tablet oxycodone 5 mg tablet 5 mg PO UD PRN 03/09/22 04/01/22 History diclofenac sodium 75 mg 75 mg PO BID 03/11/22 04/01/22 History tablet,delayed release oxycodone 5 mg tablet 5 mg PO Q6H PRN #30 tab 04/02/22 Rx tramadol 50 mg tablet 50 mg PO Q6H PRN #30 tab 04/02/22 Rx Patient History Medical History (Updated 04/02/22 @ 13:48 by Sherron Alvarado PA-C) Anxiety Asthma controlled Chiari malformation s/p craniotomy x 2 for repair Chronic back pain Degenerative disc disease Depression GERD (gastroesophageal reflux disease) controlled Hemangioma of liver x2 -- monitoring Hiatal hernia History of anemia s/p back surgery 11/2020 No known hx blood transfusion History of fractured vertebra Lumbar region Hydrocephalus [employer] Shunt (~1997), no recent issues, monitored by PCP Hyperlipidemia Hypertension Kidney stones Hx Meniere's disease Morbid obesity Osteoarthritis Sleep apnea CPAP (compliant) SVT (supraventricular tachycardia) Hx, follows with Dr. Korey Galan Surgical History H/O craniotomy x2 to repair chiari malformation with a revision from a bovine patch H/O laminectomy C1-C2 - full rom H/O vaginal hysterectomy History of cardiac cath 20+ years ago -- no stents. History of cataract surgery bilateral History of cholecystectomy History of colonoscopy History of cystocele cystocele repair History of esophagogastroduodenoscopy (EGD) History of left knee replacement History of repair of rectocele History of revision of total replacement of right knee joint History of right knee joint replacement History of thyroidectomy, subtotal thyroid nodule. no medication. History of tonsillectomy Nausea and vomiting after administration of anesthetic agent S/P lumbar fusion L2-3, L5-S1 decompression fusion, L3-5 hardware removal (11/25/2020): Grade view 1 with elective glide scope #3, easy, atraumatic at [facility]. Per post-op anesthesia progress note, " Pt received 300 mcg of fentanyl intraop. At the end of the case, pt apneic. After being given narcan, the patient began to SV and was responding to voice. Sent to PACU and did well in recovery. OK to discharge to floor but continuos pulse oximetry monitoring order placed." S/P [employer] shunt [place], [place] (1997) Family History Other Family history of colon cancer in mother Family history of diabetes mellitus in father No family history of adverse response to anesthesia Social History Smoking Status: Never smoker Second Hand Exposure: Yes (as a child); Do You Dip or Chew Tobacco: No; Hx Alcohol Use: Yes (VERY RARELY) Hx Substance Use: No Preferred Language: Bengali Communication Ability: Effective Technical Sales Manager Required: No Beliefs That Will Affect Care: None marital status: Current Living Situation: Spouse How many Children do You have: 2 Other Information That Helps Us Care for You: No Feels Safe at Home: Yes Assistive Devices: Walker Assistive Devices Comment: UPRIGHT WALKER Review of Systems Review of Systems: All systems reviewed and are unremarkable except as noted in HPI and below. Denies fever, chills, fatigue, headache, nasal congestion, sore throat, cough, chest pain, shortness of breath, palpitations, orthopnea, PND, abdominal pain, n/v/d, constipation, dysuria, hematuria, frequency, back pain, joint pain or swelling, easy bruising or bleeding, skin lesions or rashes. Physical Exam Physical Exam: GENERAL: Well-developed, well-nourished. NAD. EYES: EOMI. PERRLA. Anicteric. HENT: Moist mucous membranes. No scleral icterus. No cervical lymphadenopathy. LUNGS: Clear to auscultation bilaterally. No accessory muscle use. No W/R/R. CARDIOVASCULAR: Regular rate and rhythm. No M/G/R. No JVD. ABDOMEN: Soft, non-tender and non-distended. Bowel sounds normoactive x 4 quad. EXTREMITIES: No edema. Non-tender. Peripheral pulses +2/4. NEUROLOGIC: A&O x3. No focal neurological deficits. CN II-XII grossly intact. PSYCHIATRIC: Cooperative. Appropriate mood and affect. SKIN: Warm, dry, intact. No rashes or lesions. Lower back incision is dressed. RYAN drain visualized with approx 100 mL of serosanguinous drainage. Results & Data Results & Data ([facility]) Vital Signs (Past 12 Hours) Vital Signs Temp Pulse Pulse Resp BP Pulse Ox Pulse Ox 04/02/22 11:54 36.9 C 58 L 20 99/60 L 94 04/02/22 10:59 93 04/02/22 07:37 36.7 C 57 L 14 102/50 L 95 04/02/22 07:36 80 L 04/02/22 04:06 36.8 C 56 L 16 117/61 98 Laboratory Results 04/02/22 08:02 04/02/22 08:02 PG Care Time/CCT Total # of Minutes Spent Total Time Spent with Patient: Total time spent is greater than 50% in coordination of care (as documented) at patient's floor/unit and/or counseling patient: Coding Level of Care Code 69430 Inpt Consult Level 4 Diagnoses Neurogenic claudication due to lumbar spinal stenosis M48.062 HTN (hypertension) I10 Dyslipidemia E78.5 Sleep apnea G47.30 Asthma J45.909 Hypokalemia E87.6 Anxiety F41.9
[2022-04-02] MEDS: ROSUVASTATIN CALCIUM 5 MG TAB PO SCH (20:29)
[2022-04-02] MEDS: PANTOprazole 40 MG TAB PO SCH (20:30)
[2022-04-02] MEDS: METOPROLOL SUCC 25MG EXT REL TAB PO SCH (20:30)
[2022-04-02] MEDS: MONTELUKAST SODIUM 10 MG TABLET PO SCH (20:30)
[2022-04-02] MEDS: DOCUSATE SODIUM/SENNA 50/8.6MG TAB PO SCH (20:30)
[2022-04-03] MEDS: POLYETHYLENE (MIRALAX) 17 GM PACK PO SCH ×5 (00:49→23:28)
[2022-04-03] MEDS: oxyCODONE HCL IR 5 MG TAB (IMMEDIATE RELEASE) PO PRN ×5 (02:11→23:27)
[2022-04-03] MEDS: dilTIAZem HCL 30 MG TAB PO SCH ×2 (08:01→20:50)
[2022-04-03] MEDS: ALPRAZolam 0.5 MG TABLET PO SCH ×3 (08:06→20:43)
[2022-04-03] MEDS: dexAMETHasone 6 MG in SYRINGE 0 ML IV SCH (08:06)
[2022-04-03] MEDS: POTASSIUM CHLORIDE CRTAB 20 MEQ TABCR PO SCH ×2 (08:06→20:41)
[2022-04-03] MEDS: CYANOCOBALAMIN (B-12) 500 MCG TABLET PO SCH (08:06)
[2022-04-03] MEDS: TRIAMTERENE/HCTZ 37.5/25MG TAB PO SCH (08:06)
[2022-04-03] MEDS: AZELASTINE HCL 0.1% NASAL 200 SPRAYS/27,400 MCG BTL SCH ×2 (08:06→20:36)
[2022-04-03] MEDS: PREGABALIN 150 MG CAP PO SCH ×3 (08:06→20:43)
[2022-04-03] MEDS: BACLOFEN 10 MG TAB PO SCH ×2 (08:07→20:36)
[2022-04-03] MEDS: DULoxetine HCL 60 MG CAP PO SCH (08:07)
[2022-04-03] MEDS: CHOLECALCIFEROL 1,000 UNITS 25 MCG TAB PO SCH (08:07)
[2022-04-03 08:52] LABS: Eosinophils # (auto) 0.01 K/uL (0-0.5); Eosinophils % (auto) 0.2 %; Hemoglobin 9.3 g/dL (12.0-16.0); Immature Granulocytes # (auto) 0.02 K/uL (0.00-0.02); Immature Granulocytes % (auto) 0.4 %; Lymphocytes # (auto) 0.96 K/uL (1.2-3.4); Lymphocytes % (auto) 18.5 %; Mean Corpuscular Hemoglobin 30.5 pg (25-34); Mean Corpuscular Hgb Conc 32.1 g/dL (32-36); Mean Corpuscular Volume 95.1 fL (80-100); Mean Platelet Volume 9.9 fL (7.4-10.4); Monocytes # (auto) 0.48 K/uL (0.11-0.59); Monocytes % (auto) 9.2 %; Neutrophils # (auto) 3.72 K/uL (1.4-6.5); Neutrophils % (auto) 71.7 %; Platelet Count 209 K/uL (130-400); RDW Coefficient of Variation 13.4 % (11.5-14.5); RDW Standard Deviation 46.3 fL (36.4-46.3); Red Blood Count 3.05 M/uL (4.2-5.4); White Blood Count 5.19 K/uL (4.8-10.8)
[2022-04-03] MEDS: ACETAMINOPHEN 500 MG TAB PO PRN (08:52)
[2022-04-03 09:20] LABS: BUN Creatinine Ratio 18.6 (10-20); Calcium 9.2 mg/dl (8.5-10.1); Creatinine Clr Calc Pharmacy 107.9 ml/min; Est GFR (African American) 105.4 ml/min; Est GFR (Non-African American) 90.9 ml/min; Magnesium 1.9 mg/dl (1.7-2.4); Potassium 3.6 mmol/L (3.5-5.1)
[2022-04-03] MEDS ORDERED: oxyCODONE HCL IR 5 MG TAB (IMMEDIATE RELEASE) PO STA (10:10)
--- NOTE | 2022-04-03 10:17 | Orthopedic Progress Note ---
Date of Service April 03, 2022 Assessment & Plan (1) Neurogenic claudication due to lumbar spinal stenosis: Plan: This time continue physical therapy monitor RYAN operatively discharge home Wednesday or Wednesday with home health. Admission and Anticipated Discharge Date Admission Date: April 01, 2022 Subjective Patient's back pain is controlled. Leg symptoms markedly improved. Physical Exam Physical Exam: On exam she is good strength testing. She appears comfortable. Results & Data ([facility]) Vital Signs (Past 12 Hours) Vital Signs Temp Pulse Resp BP Pulse Ox 04/03/22 07:55 36.7 C 52 L 17 110/56 L 97 04/02/22 23:40 36.5 C 61 16 115/58 L 99
--- NOTE | 2022-04-03 14:11 | Hospitalist Progress Note ---
Date of Service April 03, 2022 Assessment & Plan (1) Neurogenic claudication due to lumbar spinal stenosis: Plan: s/p decompression and fusion on 04/[address] Cárdenas - Pain control in form of Decadron, OxyIR, and Dilaudid for breakthrough pain - Continue Lyrica and Baclofen - Recommend use of I/S q1h while awake for atelectasis/pna prevention - PT/OT eval - RYAN drain management as per primary service - Perioperative abx as per primary service - DVT ppx as per primary service - Continue to encourage ambulation and sitting up in bedside chair (2) Postoperative anemia: Plan: - Drop from 03/11 from 13.5 down to 10.2 on 04/02 and 9.3 on 04/03 - Dose of Venofer and start on oral iron supplementation for post op anemia d/t blood loss - Repeat cbc in AM (3) Hypokalemia: Plan: - Supplementation ordered and normalized today (4) HTN (hypertension): Plan: - On Metoprolol, Maxzide, and Cardizem, hold for SBP<100 or HR<55 - BP improved today (5) Dyslipidemia: Plan: - On Crestor which has been continued (6) Sleep apnea: Plan: - Utilizes CPAP, may use her own unit from home - weight loss is also recommended (7) Asthma: Plan: Asthma plus allergic rhinitis - Continue nasal spray, Singulair, benadryl - Continue Ventolin (8) Anxiety: Plan: - On Cymbalta and Xanax PRN Plan: No further recommendations at this time other than interventions as outlined above. Thank you for allowing us to participate in this patient's care, medical will sign off but continue to follow peripherally and perform daily chart checks. Above plan of care to be d/w Dr. Amaral. Admission and Anticipated Discharge Date Admission Date: April 01, 2022 Subjective Patient seen on daily rounds this morning. She is resting comfortably lying on her left side in bed. Reports that her headache yesterday afternoon resolved after dose of Maxalt. Prior to my arrival, she had just been medicated with a dose of oxycodone 5mg but didn't feel that it provided enough relief. Denies radicular symptoms in her legs, loss of bowel/bladder function, or saddle anesthesias. No cp or dyspnea. Review of Systems Review of Systems: All systems reviewed and are unremarkable except as noted in HPI and below. Denies fever, chills, fatigue, headache, nasal congestion, sore throat, cough, chest pain, shortness of breath, palpitations, orthopnea, PND, abdominal pain, n/v/d, constipation, dysuria, hematuria, frequency, back pain, joint pain or swelling, easy bruising or bleeding, skin lesions or rashes. Physical Exam Physical Exam: GENERAL: 66 yo morbidly obese WF. NAD. LUNGS: Clear to auscultation bilaterally. No W/R/R. CARDIOVASCULAR: Regular rate and rhythm. No M/G/R. No JVD. ABDOMEN: Soft, non-tender and non-distended. Bowel sounds normoactive x 4 quad. EXTREMITIES: No edema. Non-tender. Peripheral pulses +2/4. NEUROLOGIC: A&O x3. No focal neurological deficits. PSYCHIATRIC: Cooperative. Appropriate mood and affect. SKIN: Warm, dry, intact. No rashes or lesions. Lower back incision is dressed, some drainage seeping through but not saturated. RYAN drain visualized with serosanguineous drainage. Results & Data Results & Data ([facility]) Vital Signs (Past 12 Hours) Vital Signs Temp Pulse Resp BP Pulse Ox 04/03/22 07:55 36.7 C 52 L 17 110/56 L 97 PG Care Time/CCT Total # of Minutes Spent Total Time Spent with Patient: Total time spent is greater than 50% in coordination of care (as documented) at patient's floor/unit and/or counseling patient: Coding Level of Care Code 06307 Subseq Hosp Care Lvl 2 Diagnoses Neurogenic claudication due to lumbar spinal stenosis M48.062 Hypokalemia E87.6 HTN (hypertension) I10 Dyslipidemia E78.5 Sleep apnea G47.30 Asthma J45.909 Anxiety F41.9 Postoperative anemia D64.9
[2022-04-03] MEDS ORDERED: IRON SUCROSE 300 MG in SODIUM CHLORIDE 0.9% 250 ML IV ONE (14:30)
[2022-04-03] MEDS: traMADol HCL 50 MG TABLET PO PRN (17:43)
[2022-04-03] MEDS: DOCUSATE SODIUM/SENNA 50/8.6MG TAB PO SCH (20:38)
[2022-04-03] MEDS: MONTELUKAST SODIUM 10 MG TABLET PO SCH (20:40)
[2022-04-03] MEDS: PANTOprazole 40 MG TAB PO SCH (20:40)
[2022-04-03] MEDS: ROSUVASTATIN CALCIUM 5 MG TAB PO SCH (20:41)
[2022-04-03] MEDS: METOPROLOL SUCC 25MG EXT REL TAB PO SCH (20:50)
[2022-04-04] MEDS: traMADol HCL 50 MG TABLET PO PRN ×2 (03:09→20:48)
[2022-04-04] MEDS: oxyCODONE HCL IR 5 MG TAB (IMMEDIATE RELEASE) PO PRN ×5 (03:49→21:37)
[2022-04-04] MEDS: POLYETHYLENE (MIRALAX) 17 GM PACK PO SCH ×4 (05:51→23:09)
[2022-04-04] MEDS: ACETAMINOPHEN 500 MG TAB PO PRN (07:57)
--- NOTE | 2022-04-04 08:32 | Orthopedic Progress Note ---
Date of Service April 04, 2022 Assessment & Plan (1) Neurogenic claudication due to lumbar spinal stenosis: Plan: This we will continue physical therapy today monitor RYAN output anticipate possible discharge home tomorrow. Admission and Anticipated Discharge Date Admission Date: April 01, 2022 Subjective Patient's back pain is controlled leg symptoms improved Physical Exam Physical Exam: On exam she is good strength testing. She is comfortable. Results & Data ([facility]) Vital Signs (Past 12 Hours) Vital Signs Temp Pulse Pulse Resp BP BP Pulse Ox 04/04/22 07:32 36.7 C 58 L 16 111/51 L 97 04/03/22 23:35 36.3 C L 55 L 18 138/71 92 04/03/22 20:46 56 L 135/66
[2022-04-04 08:49] LABS: Hematocrit (blood only) 29.8 % (37-47); Hemoglobin 9.6 g/dL (12.0-16.0); Mean Corpuscular Hemoglobin 30.6 pg (25-34); Mean Corpuscular Hgb Conc 32.2 g/dL (32-36); Mean Corpuscular Volume 94.9 fL (80-100); Mean Platelet Volume 9.9 fL (7.4-10.4); Platelet Count 223 K/uL (130-400); RDW Coefficient of Variation 13.3 % (11.5-14.5); RDW Standard Deviation 45.7 fL (36.4-46.3); Red Blood Count 3.14 M/uL (4.2-5.4); White Blood Count 5.24 K/uL (4.8-10.8)
[2022-04-04] MEDS: PREGABALIN 150 MG CAP PO SCH ×3 (08:58→20:32)
[2022-04-04] MEDS: ALPRAZolam 0.5 MG TABLET PO SCH ×3 (08:58→20:32)
[2022-04-04] MEDS: CHOLECALCIFEROL 1,000 UNITS 25 MCG TAB PO SCH (08:58)
[2022-04-04] MEDS: CYANOCOBALAMIN (B-12) 500 MCG TABLET PO SCH (08:59)
[2022-04-04] MEDS: DULoxetine HCL 60 MG CAP PO SCH (08:59)
[2022-04-04] MEDS: BACLOFEN 10 MG TAB PO SCH ×2 (08:59→20:28)
[2022-04-04] MEDS: POTASSIUM CHLORIDE CRTAB 20 MEQ TABCR PO SCH ×2 (08:59→20:29)
[2022-04-04] MEDS: dilTIAZem HCL 30 MG TAB PO SCH ×2 (09:00→20:29)
[2022-04-04] MEDS: FERROUS SULFATE 325 MG TAB PO SCH ×2 (09:00→17:18)
[2022-04-04] MEDS: TRIAMTERENE/HCTZ 37.5/25MG TAB PO SCH (09:45)
[2022-04-04] MEDS: AZELASTINE HCL 0.1% NASAL 200 SPRAYS/27,400 MCG BTL SCH ×2 (09:45→20:30)
[2022-04-04] MEDS: dexAMETHasone 6 MG in SYRINGE 0 ML IV SCH (09:46)
[2022-04-04] MEDS: MONTELUKAST SODIUM 10 MG TABLET PO SCH (20:28)
[2022-04-04] MEDS: ROSUVASTATIN CALCIUM 5 MG TAB PO SCH (20:28)
[2022-04-04] MEDS: METOPROLOL SUCC 25MG EXT REL TAB PO SCH (20:28)
[2022-04-04] MEDS: DOCUSATE SODIUM/SENNA 50/8.6MG TAB PO SCH (20:29)
[2022-04-04] MEDS: PANTOprazole 40 MG TAB PO SCH (20:29)
[2022-04-05] MEDS: ACETAMINOPHEN 500 MG TAB PO PRN ×3 (00:09→15:25)
[2022-04-05] MEDS: traMADol HCL 50 MG TABLET PO PRN ×2 (00:49→20:24)
[2022-04-05] MEDS: oxyCODONE HCL IR 5 MG TAB (IMMEDIATE RELEASE) PO PRN ×4 (01:33→22:04)
[2022-04-05] MEDS: POLYETHYLENE (MIRALAX) 17 GM PACK PO SCH ×4 (05:58→22:55)
[2022-04-05] MEDS: dilTIAZem HCL 30 MG TAB PO SCH (07:40)
[2022-04-05] MEDS: TRIAMTERENE/HCTZ 37.5/25MG TAB PO SCH (07:54)
[2022-04-05] MEDS: DULoxetine HCL 60 MG CAP PO SCH (07:55)
[2022-04-05] MEDS: AZELASTINE HCL 0.1% NASAL 200 SPRAYS/27,400 MCG BTL SCH ×2 (07:55→20:29)
[2022-04-05] MEDS: POTASSIUM CHLORIDE CRTAB 20 MEQ TABCR PO SCH ×2 (07:56→20:30)
[2022-04-05] MEDS: CHOLECALCIFEROL 1,000 UNITS 25 MCG TAB PO SCH (07:56)
[2022-04-05] MEDS: CYANOCOBALAMIN (B-12) 500 MCG TABLET PO SCH (07:56)
[2022-04-05] MEDS: FERROUS SULFATE 325 MG TAB PO SCH ×2 (07:57→17:14)
[2022-04-05] MEDS: BACLOFEN 10 MG TAB PO SCH ×2 (07:59→20:31)
[2022-04-05] MEDS: ALPRAZolam 0.5 MG TABLET PO SCH (08:33)
[2022-04-05] MEDS: PREGABALIN 150 MG CAP PO SCH ×3 (08:33→20:29)
[2022-04-05] MEDS ORDERED: SODIUM CHLORIDE 0.9% 1000ML 500 ML IV ONE (08:37)
[2022-04-05] MEDS ORDERED: ALPRAZolam 0.5 MG TABLET PO PRN (08:39)
--- NOTE | 2022-04-05 10:37 | Orthopedic Progress Note ---
Date of Service April 05, 2022 Assessment & Plan (1) Neurogenic claudication due to lumbar spinal stenosis: Plan: At this point we have held her hypertension medications. We will attempt physical therapy today hopefully discharge home tomorrow. Admission and Anticipated Discharge Date Admission Date: April 01, 2022 Subjective Patient complaining of back pain. She is struggling with hypotension. Physical Exam Physical Exam: On exam she is in bed. She has good strength testing. Results & Data ([facility]) Vital Signs (Past 12 Hours) Vital Signs Temp Pulse Pulse Resp BP BP Pulse Ox 04/05/22 10:23 55 L 113/62 04/05/22 07:38 49 L 84/51 L 04/05/22 07:37 36.6 C 50 L 16 90/51 L 97
--- NOTE | 2022-04-05 11:57 | Hospitalist Progress Note ---
Date of Service April 05, 2022 Assessment & Plan (1) Neurogenic claudication due to lumbar spinal stenosis: Plan: s/p decompression and fusion on 04/[address] Cárdenas - Pain control in form of Decadron, OxyIR, and Dilaudid for breakthrough pain - Continue Lyrica and Baclofen - Recommend use of I/S q1h while awake for atelectasis/pna prevention - PT/OT eval--recommending home with PT - RYAN drain management as per primary service - Perioperative abx as per primary service - DVT ppx as per primary service - Continue to encourage ambulation and sitting up in bedside chair (2) Postoperative anemia: Plan: - Drop from 03/11 from 13.5 down to 10.2 on 04/02 and 9.3 on 04/03 - Dose of Venofer and start on oral iron supplementation for post op anemia d/t blood loss - Repeat cbc in AM (3) Hypokalemia: Plan: - Supplementation ordered and normalized (4) HTN (hypertension): Plan: - On Metoprolol, Maxzide, and Cardizem, hold for SBP<100 or HR<55 - BP was up in 140-160s systolic on 04/01 but following surgery has been marginal/soft - Although she is asymptomatic, given fluid bolus and held Maxzide and Cardizem this morning. - Do not see an ongoing need for Cardizem, thus will d/c. - Currently on opioid pain medications, lack of adequate hydration while on a thiazide diuretic both could be playing a role (5) Dyslipidemia: Plan: - On Crestor which has been continued (6) Sleep apnea: Plan: - Utilizes CPAP, may use her own unit from home - weight loss is also recommended (7) Asthma: Plan: Asthma plus allergic rhinitis - Continue nasal spray, Singulair, benadryl - Continue Ventolin (8) Anxiety: Plan: - On Cymbalta and Xanax PRN Plan: Recommendations as outlined above. Will continue to follow due to her soft BPs and adjust her regimen in preparation for discharge home tomorrow. Above plan of care to be d/w Dr. Amaral. Admission and Anticipated Discharge Date Admission Date: April 01, 2022 Subjective Patient seen on daily rounds this morning. She is resting on her left side lying in bed. Notified by nursing this morning that her blood pressure was running low, Dinamap read as 90/51, manual recheck was 84/51. Her Cardizem and Maxzide were held this morning. She was given a 500 cc fluid bolus and pressure has improved to 113/62. She has been completely asymptomatic. Per pt, back pain is "fairly well" controlled. RYAN Drain output has decreased. Review of Systems Review of Systems: All systems reviewed and are unremarkable except as noted in HPI and below. Denies fever, chills, fatigue, headache, nasal congestion, sore throat, cough, chest pain, shortness of breath, palpitations, orthopnea, PND, abdominal pain, n/v/d, constipation, dysuria, hematuria, frequency, back pain, joint pain or swelling, easy bruising or bleeding, skin lesions or rashes. Physical Exam Physical Exam: GENERAL: 66 yo morbidly obese WF. NAD. LUNGS: Clear to auscultation bilaterally. No W/R/R. CARDIOVASCULAR: Regular rate and rhythm. No M/G/R. No JVD. ABDOMEN: Soft, non-tender and non-distended. Bowel sounds normoactive x 4 quad. EXTREMITIES: No edema. Non-tender. Peripheral pulses +2/4. NEUROLOGIC: A&O x3. No focal neurological deficits. PSYCHIATRIC: Cooperative. Appropriate mood and affect. SKIN: Warm, dry, intact. No rashes or lesions. Lower back incision is dressed. RYAN drain visualized with serosanguineous drainage. Results & Data Results & Data ([facility]) Vital Signs (Past 12 Hours) Vital Signs Temp Pulse Pulse Resp BP BP Pulse Ox 04/05/22 10:23 55 L 113/62 04/05/22 07:38 49 L 84/51 L 04/05/22 07:37 36.6 C 50 L 16 90/51 L 97 PG Care Time/CCT Total # of Minutes Spent Total Time Spent with Patient: Total time spent is greater than 50% in coordination of care (as documented) at patient's floor/unit and/or counseling patient: Coding Level of Care Code 33486 Subseq Hosp Care Lvl 2 Diagnoses Neurogenic claudication due to lumbar spinal stenosis M48.062 Postoperative anemia D64.9 Hypokalemia E87.6 HTN (hypertension) I10 Dyslipidemia E78.5 Sleep apnea G47.30 Asthma J45.909 Anxiety F41.9
[2022-04-05] MEDS: ROSUVASTATIN CALCIUM 5 MG TAB PO SCH (20:29)
[2022-04-05] MEDS: PANTOprazole 40 MG TAB PO SCH (20:30)
[2022-04-05] MEDS: MONTELUKAST SODIUM 10 MG TABLET PO SCH (20:30)
[2022-04-05] MEDS: METOPROLOL SUCC 25MG EXT REL TAB PO SCH (20:30)
[2022-04-05] MEDS: DOCUSATE SODIUM/SENNA 50/8.6MG TAB PO SCH (20:31)
[2022-04-06] MEDS: oxyCODONE HCL IR 5 MG TAB (IMMEDIATE RELEASE) PO PRN ×3 (05:42→13:40)
[2022-04-06] MEDS: POLYETHYLENE (MIRALAX) 17 GM PACK PO SCH ×2 (05:42→12:50)
[2022-04-06] MEDS: DULoxetine HCL 60 MG CAP PO SCH (08:48)
[2022-04-06] MEDS: BACLOFEN 10 MG TAB PO SCH (08:48)
[2022-04-06] MEDS: AZELASTINE HCL 0.1% NASAL 200 SPRAYS/27,400 MCG BTL SCH (08:48)
[2022-04-06] MEDS: POTASSIUM CHLORIDE CRTAB 20 MEQ TABCR PO SCH (08:48)
[2022-04-06] MEDS: FERROUS SULFATE 325 MG TAB PO SCH (08:48)
[2022-04-06] MEDS: CHOLECALCIFEROL 1,000 UNITS 25 MCG TAB PO SCH (08:48)
[2022-04-06] MEDS: PREGABALIN 150 MG CAP PO SCH ×2 (08:48→13:39)
[2022-04-06] MEDS: CYANOCOBALAMIN (B-12) 500 MCG TABLET PO SCH (08:48)
[2022-04-06 09:13] LABS: Basophils # (auto) 0.01 K/uL (0-0.2); Basophils % (auto) 0.2 %; Eosinophils # (auto) 0.29 K/uL (0-0.5); Hematocrit (blood only) 32.4 % (37-47); Hemoglobin 10.4 g/dL (12.0-16.0); Immature Granulocytes # (auto) 0.06 K/uL (0.00-0.02); Immature Granulocytes % (auto) 1.2 %; Lymphocytes # (auto) 1.15 K/uL (1.2-3.4); Lymphocytes % (auto) 23.8 %; Mean Corpuscular Hgb Conc 32.1 g/dL (32-36); Mean Corpuscular Volume 96.4 fL (80-100); Mean Platelet Volume 9.6 fL (7.4-10.4); Monocytes # (auto) 0.46 K/uL (0.11-0.59); Monocytes % (auto) 9.5 %; Neutrophils # (auto) 2.86 K/uL (1.4-6.5); Neutrophils % (auto) 59.3 %; Nucleated RBC # (auto) 0.02 K/uL (0-0); Nucleated RBC % (auto) 0.4 %; Platelet Count 234 K/uL (130-400); RDW Coefficient of Variation 13.5 % (11.5-14.5); RDW Standard Deviation 47.1 fL (36.4-46.3); Red Blood Count 3.36 M/uL (4.2-5.4); White Blood Count 4.83 K/uL (4.8-10.8)
[2022-04-06 09:39] LABS: BUN Creatinine Ratio 17.2 (10-20); Calcium 8.8 mg/dl (8.5-10.1); Est GFR (African American) 108.5 ml/min; Est GFR (Non-African American) 93.6 ml/min; Potassium 3.5 mmol/L (3.5-5.1)
--- NOTE | 2022-04-06 09:39 | Hospitalist Progress Note ---
Date of Service April 06, 2022 Assessment & Plan (1) Neurogenic claudication due to lumbar spinal stenosis: Plan: s/p decompression and fusion on 04/[address] Cárdenas - Pain control in form of Decadron, OxyIR, and Dilaudid for breakthrough pain - Continue Lyrica and Baclofen - Recommend use of I/S q1h while awake for atelectasis/pna prevention - PT/OT eval--recommending home with PT - RYAN drain management as per primary service - Perioperative abx as per primary service - DVT ppx as per primary service - Continue to encourage ambulation and sitting up in bedside chair (2) Postoperative anemia: Plan: - Drop from 03/11 from 13.5 down to 10.2 on 04/02 and 9.3 on 04/03 - Dose of Venofer and start on oral iron supplementation for post op anemia d/t blood loss - hgb stable (3) Hypokalemia: Plan: - Supplementation ordered and normalized (4) HTN (hypertension): Plan: - On Metoprolol, Maxzide, and Cardizem, hold for SBP<100 or HR<55 - BP was up in 140-160s systolic on 04/01 but following surgery has been marginal/soft - Although she is asymptomatic, given fluid bolus and held Maxzide and Cardizem this morning. - Do not see an ongoing need for Cardizem, thus will d/c. - Currently on opioid pain medications, lack of adequate hydration while on a thiazide diuretic both could be playing a role - Will plan to ultimately continue holding the Maxzide (stopped the Cardizem) and have her follow up with her PCP. Recommended home BP checks and to call her family doctor with readings. (5) Dyslipidemia: Plan: - On Crestor which has been continued (6) Sleep apnea: Plan: - Utilizes CPAP, may use her own unit from home - weight loss is also recommended (7) Asthma: Plan: Asthma plus allergic rhinitis - Continue nasal spray, Singulair, benadryl - Continue Ventolin (8) Anxiety: Plan: - On Cymbalta and Xanax PRN Plan: No further recommendations at this time other than as outlined regarding her BP med regimen. From my standpoint, she is medically and hemodynamically stable for discharge home with home health. Thank you for allowing us to participate in the care of your patient. Above plan of care to be d/w Dr. Amaral. Admission and Anticipated Discharge Date Admission Date: April 01, 2022 Subjective Patient seen on daily rounds this morning. She reports pain continues to be fairly well controlled. Denies cp or dyspnea. No further issues with hypotension since yesterday morning. Review of Systems Review of Systems: All systems reviewed and are unremarkable except as noted in HPI and below. Denies fever, chills, fatigue, headache, nasal congestion, sore throat, cough, chest pain, shortness of breath, palpitations, orthopnea, PND, abdominal pain, n/v/d, constipation, dysuria, hematuria, frequency, back pain, joint pain or swelling, easy bruising or bleeding, skin lesions or rashes. Physical Exam Physical Exam: GENERAL: 66 yo morbidly obese WF. NAD. LUNGS: Clear to auscultation bilaterally. No W/R/R. CARDIOVASCULAR: Regular rate and rhythm. No M/G/R. No JVD. ABDOMEN: Soft, non-tender and non-distended. Bowel sounds normoactive x 4 quad. EXTREMITIES: No edema. Non-tender. Peripheral pulses +2/4. NEUROLOGIC: A&O x3. No focal neurological deficits. PSYCHIATRIC: Cooperative. Appropriate mood and affect. SKIN: Warm, dry, intact. No rashes or lesions. Lower back incision is dressed. RYAN drain visualized with serosanguineous drainage. Results & Data Results & Data ([facility]) Vital Signs (Past 12 Hours) Vital Signs Temp Pulse Resp BP Pulse Ox 04/06/22 08:00 37.0 C 65 18 113/61 92 04/05/22 23:00 36.7 C 59 L 20 113/63 95 Laboratory Results 04/06/22 07:58 04/06/22 07:58 PG Care Time/CCT Total # of Minutes Spent Total Time Spent with Patient: Total time spent is greater than 50% in coordination of care (as documented) at patient's floor/unit and/or counseling patient: Coding Level of Care Code 72079 Subseq Hosp Care Lvl 2 Diagnoses Neurogenic claudication due to lumbar spinal stenosis M48.062 Postoperative anemia D64.9 Hypokalemia E87.6 HTN (hypertension) I10 Dyslipidemia E78.5 Sleep apnea G47.30 Asthma J45.909 Anxiety F41.9
--- NOTE | 2022-04-06 10:16 | Discharge Summary ---
Date of Service April 06, 2022 Admission HPI Per Admitting Provider This is a 66-year-old female who presents with chronic persistent back and leg pain. Failing course of nonoperative care she is here for surgical invention. Principal Diagnosis Lumbar spinal stenosis with neurogenic claudication Discharge Data Allergies Allergy/AdvReac Type Severity Reaction Status Date / Time adhesive Allergy Unknown blisters Verified 04/01/22 08:41 topiramate [From Topamax] Allergy Unknown Chest Pain Verified 04/01/22 08:41 metoclopramide [From Reglan] AdvReac Unknown skin Verified 04/01/22 08:41 crawling Consultations 04/01/22 13:52 Consult Hospitalist Routine Procedures Performed Operation Date: 04/01/22 09:35 Actual Procedures p T10-L2 Decompression and Fusion(Not Applicable) - Stiven Cárdenas DO Ordered Studies 04/01/22 09:35 [place] thoracic spine 2V Routine Hospital Course (1) Neurogenic claudication due to lumbar spinal stenosis: Patient went multilevel lumbar decompression fusion tolerated this well was taken to orthopedic for possibly postoperatively she progressed over the course of several days with physical therapy. RYAN drain decreasing appropriate. Excellent strength testing. Separately discharged home. Discharge orders instructions found in chart for further review. Total Time Total Time Spent Total Time Spent (In Minutes): 20 minutes Discharge Plan Discharge Items Patient Disposition: Home - Self-Care Reason For Visit: Radiculopathy, Lumbar Region Discharge Diagnosis: Lumbar spinal stenosis with radiculopathy Activity: As commented below Non-emergency contact: Primary Care Provider Call non-emergency contact if: you have any medication questions Follow-up/Referrals: Ravin Crawford M.D. [Primary Care Provider] - 04/20/22 10:45 am (APPOI NTMENT WITH MICHELLE HOLLINGSWORTH PA-C) Diet: Regular Addtl Attending Provider Instructions: ACTIVITY RECOMMENDATIONS: SELF CARE INSTRUCTIONS AFTER THORACIC/LUMBAR FUSIONS 1. You may walk to your tolerance. It is good exercise for your legs and back. Expect some back and intermittent leg aches and pains. 2. You may perform "counter-top" level activities (make a sandwich, amanda with a project, etc.). 3. No bending or lifting of more than 10 pounds or back twisting of any nature (roll like a log when turning in bed). 4. You may ride in a car for 20-30 minutes at a time. No driving until after your first visit with your doctor. 5. Frequent changes of position and restricting sitting to 30 minutes at a time will help limit the amount of back spasms and stiffness you may experience. 6. You may discontinue the use of ambulatory aids (cane, crutches, etc.) once your strength and confidence allow. 7. You may industrial controller the shower and let water strike your incision when you arrive home at least once daily. Do not take a tub bath, sit in a hot tub or go into a swimming pool until after your first recheck in the office. SPECIAL CARE INSTRUCTIONS: VERY IMPORTANT TO READ AND REVIEW A. Your surgical incision has been closed with a cosmetic suture under the skin that will dissolve in about 6 weeks. In 14 days, you can use a pair of clean scissors and cut the suture that is left outside of the skin at the ends of your incision. 1. The small skin tapes can be removed 7 days after surgery if they have not fallen off by that point. 2. You may keep the wound open to air as much as possible to promote healing after post-op day number 5 unless told otherwise by your doctor. 3. If you think the wound looks like it is becoming infected (redness or worsening drainage) and/or you are experiencing fever, chill or worsening back pain and muscle spasms, contact the office so that we may evaluate you as soon as possible. B. Complications are uncommon, but please contact us if you have any signs or symptoms of: 1. wound infection (fever higher than 102.5 degrees F, redness, separation of wound, drainage, or increasing pain from the incision) 2. blood clots in legs (pain, swelling, redness and warmth in legs) 3. urinary tract infection (fever higher than 102.5 degrees F, burning upon urination or increased frequency of urination) 4. nerve problems (inability to walk on your toes or heels, numbness, loss of bowel or bladder control) 5. any other symptoms that concern you C. Please call the office at if you have any concerns or questions about your operation or recovery. D. No smoking! Smoking drastically decreases the chance of a solid fusion. E. Do not take any anti-inflammatory medications (Indocin, Advil, Motrin, Aspirin, Naprosyn, etc.) as these may inhibit the chance of a solid fusion. Tylenol is okay to take for pain. MANAGING PAIN AFTER SPINAL SURGERY 1. Narcotic medication is intended for short-term use and will be provided for surgical pain. Surgical pain usually lasts for a period of 4-6 weeks. Narcotic medication includes Percocet, Vicodin, Darvocet, Tylenol #3 or Lortab. 2. Longer-term pain is more appropriately treated with non-narcotic medication such as Tylenol ES. 3. Muscle spasm is not appropriately treated with narcotics. Muscle relaxers such as Soma, Flexeril or Skelaxin can be used along with Tylenol ES. 4. Remember that we all live with some "aches and pains". This is not unusual or uncommon after an injury or as we get older. a. Back pain is expected and may include muscle spasms for 4 to 6 weeks aft er surgery. The pain should gradually improve. If the pain worsens for no apparent reason, please contact the office. b. Intermittent leg pain may also be experienced and should not be concerned about unless it worsens for no apparent reason. If so, please contact the office. 5. We will provide appropriate medication within the normal guidelines of their prescribed use. We will also be very cautious and aware of potential abuse and extended duration of patients' medication needs. a. Pain medications are for your comfort and to assist with sleep and rest so that the tissue can heal. They are not provided in order to return to normal activity and should not be used through the day. To do so or worsening pain at night can result from ongoing tissue damage and development of tolerance to the prescribed medicine. 6. Please allow 2-3 days to process refills. Prescriptions will not be mailed but must be picked up at the office. FOLLOW UP VISIT: Keep your scheduled follow-up appointment. Any questions, please call the office at . 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 Would advise close follow up with your family doctor in order to determine if you need to resume one or both of these medications. Since you will have home health (visiting physical and occupational therapy as well as a visiting nurse), the nurse can check your blood pressure. I would keep record of your blood pressure readings so that you can take them with you to your primary care follow up appointment. Would recommend follow up with your family doctor within 1 week of discharge from the hospital. Pending Studies at Discharge: No Stand-Alone Forms: [facility], Smoking Cessation Medications and DC Order Prescriptions: New tramadol 50 mg tablet 50 mg PO Q6H PRN (Reason: pain, moderate) Qty: 30 RF: 0 oxycodone 5 mg tablet 5 mg PO Q6H PRN (Reason: pain, severe) Qty: 30 RF: 0 Continued alprazolam 0.5 mg Tablet 0.5 mg PO TID RF: 0 baclofen 10 mg Tablet 10 mg PO BID RF: 0 pantoprazole 40 mg Tablet,Delayed Release (Dr/Ec) 40 mg PO QPM RF: 0 montelukast 10 mg Tablet 10 mg PO QPM RF: 0 metoprolol succinate 25 mg Tablet Extended Release 24 Hr 25 mg PO HS RF: 0 rosuvastatin 5 mg Tablet 5 mg PO QPM RF: 0 duloxetine 60 mg Capsule,Delayed Release(Dr/Ec) 60 mg PO QAM RF: 0 potassium chloride 20 mEq Tablet Extended Release 20 meq PO BID RF: 0 Apple Cider Vinegar Gummies 2 tab PO QAM RF: 0 rizatriptan 10 mg Tablet 10 mg PO UD PRN (Reason: migraines) RF: 0 cyanocobalamin (vitamin B-12) [Vitamin B-12] 500 mcg Tablet 500 mcg PO DAILY RF: 0 magnesium 250 mg Tablet 250 mg PO UD PRN (Reason: muscle cramps) RF: 0 azelastine 137 mcg (0.1 %) Aerosol,[place] 1 spray INTRANASAL BID RF: 0 albuterol sulfate [ProAir HFA] 90 mcg/actuation Hfa Aerosol Inhaler 1 inh INHALATION UD PRN (Reason: sob) RF: 0 pregabalin [Lyrica] 150 mg Capsule 150 mg PO TID RF: 0 cholecalciferol (vitamin D3) [Vitamin D3] 25 mcg (1,000 unit) Tablet 75 mcg PO QAM RF: 0 cannabidiol 100 mg/mL Solution 150 mg PO BID PRN (Reason: Pain) RF: 0 oxycodone 5 mg tablet 5 mg PO UD PRN (Reason: pain, severe) RF: 0 diclofenac sodium 75 mg Tablet,Delayed Release (Dr/Ec) 75 mg PO BID RF: 0 Discontinued diltiazem HCl 180 mg Capsule,Extended Release 24 Hr 180 mg PO QID RF: 0 triamterene-hydrochlorothiazid 75-50 mg Tablet 1 tab PO QAM RF: 0 Discharge Orders: Discharge Order (Routine); Ordered 04/06/22 Ordered By: Stiven Cárdenas Admission Data Admit Date/Time: 04/01/22 12:15 Attending Provider: Stiven Cárdenas Admit Provider: Stiven Cárdenas Primary Care Provider: Ravin Crawford Other Providers: Dorian Boogie
[2022-04-06] MEDS: traMADol HCL 50 MG TABLET PO PRN (11:12)
== END 2022-04-06 14:41 | disposition home health service (06) | DRG 454 ==
LOC: ASU 08:02 → 3W 12:15

== ENCOUNTER 2024-07-03 14:53 | Inpatient (IN) ==
--- NOTE | 2024-07-03 16:09 | Emergency Department Note ---
Impression & Plan Acute confusion due to infection, Acute UTI, History of ventriculoperitoneal shunting ED Provider Note NAME: ANDREINA JOINER AGE: 68 SEX: F : 1955 ARRIVES VIA: Walk-In INFORMANT: Patient, ED PROVIDER(S): Cornelio Valladares MD CHIEF COMPLAINT: Confusion MEDICAL DECISION MAKING: Patient presents due to concern for an episode of confusion. IV was established and blood obtained along with a CT of the head and CT angiography of the head and neck. Patient CT head did show a PEDIATRIC PSYCHIATRIST shunt. I did ask her about this and she states that she had a Chiari malformation and had a surgery completed in [place] which she thought was 1995. Review of the patient's paperwork shows that it was in 2003 and had 2 separate revisions completed. Patient blood work is reassuring. Lyme's negative. CT head and CT angiography of the head and neck did not show any evidence of aneurysm or dissection. He has normal white count hemoglobin and platelet count kidney function is unremarkable. Troponin negative. COVID flu RSV negative. Patient was noted to have a likely urinary UTI. The patient was ordered IV Rocephin. I did order a shunt series. There was concern that the shunt catheter does not progress beyond the calvarium. I did speak with radiologist Dr. Sykes about this. Given the concern for possible shunt issue although no evidence of hydrocephalus I did speak to [facility] Dr. Cardenas who stated that it did not sound as if the patient required acute transfer given lack of hydrocephalus even in light of where the shunt terminates. I did speak the on-call hospitalist Dr. Gross and the patient was admitted to the medicine service. Discussion w/ other healthcare providers: Dr. Sykes radiology Dr. Cardenas [facility] neurosurgery Prior /Outside records reviewed: None Differential diagnosis: Infection, dehydration, metabolic abnormality, hypo/hyperglycemia, electrolyte imbalance, anemia, UTI, pneumonia, thyroid dysfunction among others were considered. Diagnostics, as interpreted by me: ECG:Normal sinus rhythm, rate of 60, normal intervals, normal axis no ST elevations T wave inversion in V3. Cardiac monitoring: An order was placed for continuous cardiac monitoring. The monitor shows a rate of 62 with sinus rhythm. Patient was placed on pulse oximetry Medical decision rules: None Imaging studies: I informally interpreted the patient's Chest x-ray does not show evidence of obvious pneumonia or pneumothorax with formal report to follow. HPI: Patient presents due to concern for confusion. After discussion with the patient's at bedside he states that when she was looking at her calendar she was having difficulty differentiating between Mondays and Tuesdays appointments. She also reports that she was having some difficulty to the "next step" of doing things. Patient states that she becomes forgetful in the middle of something. Patient denies any chest pains or shortness of breath. The patient has had dry nonproductive cough. Patient denies any prior history of stroke or mini stroke and no history of seizure. They also report that she has been dropping things. Reports that today she does seem to be staring at her phone. He does admit that she seems better than before. Patient has had some headaches over the last several days no falls or trauma. Patient denies any vomiting or diarrhea but has had some mild nausea. Denies history of tick bites or Lyme's. Patient does not complain of any urinary symptoms. The patient states that she was here locally to follow-up with Dr. Cárdenas for possible spinal cord stimulator. PAST MEDICAL HISTORY: See Below PAST SURGICAL HISTORY: See Below SOCIAL HISTORY: See Below HOME MEDICATIONS: See Below ALLERGIES: See Below VITALS: See Below PHYSICAL EXAMINATION: GENERAL: NAD, non-toxic. Wearing glasses. EYE EXAM: Normal conjunctiva. PERRL, no anisocoria and EOM's grossly intact w/o pain. OROPHARYNX: Moist mucus membranes, grossly normal dentition. NECK: Trachea midline, no stridor. LUNGS: Clear to auscultation. Normal chest wall mechanics. HEART: NSR, no MRG. ABDOMEN: Abdomen soft, non-tender, no masses, no rebound or guarding. BACK: No CVA TTP. SKIN: No rashes and no bruising. UPPER EXTREMITIES: Upper extremities are grossly normal. LOWER EXTREMITIES: Grossly normal, no edema. NEURO EXAM: A&O x3, cranial nerves II-XII grossly intact, normal speech, moves all 4 extremities. Good [id number], no drift and no sensory deficits. Past Med/Surg History Problem List (Updated 07/05/24 @ 19:08 by Cornelio Valladares MD) History of ventriculoperitoneal shunting (Acute) Acute UTI (Acute) Sepsis due to urinary tract infection Acute confusion due to infection (Acute) Postoperative anemia Hypokalemia Asthma PSVT (paroxysmal supraventricular tachycardia) Sleep apnea Dyslipidemia HTN (hypertension) Neurogenic claudication due to lumbar spinal stenosis Encounter for pre-operative examination Anxiety Medical History Chronic pain History of Chiari malformation s/p craniotomy/repair x2 Anxiety Neurogenic claudication due to lumbar spinal stenosis History of hypokalemia History of COVID-19 x3 Most recent 09/2023 > residual sinus issues since Morbid obesity History of anemia s/p back surgery 11/2020 No known hx blood transfusion Hemangioma of liver x2 - monitoring Hydrocephalus PEDIATRIC PSYCHIATRIST Shunt (~1997) No recent issues, monitored by PCP Hiatal hernia Meniere's disease Osteoarthritis Degenerative disc disease Chronic back pain Kidney stones Hx GERD (gastroesophageal reflux disease) controlled Depression SVT (supraventricular tachycardia) Hx Follows with cardio/Dr. Korey Galan Hyperlipidemia Hypertension Sleep apnea CPAP (compliant) Asthma Surgical History History of spinal fusion 04/01/22 @ [facility] Dr. Cárdenas T10-L2 Nausea and vomiting after administration of anesthetic agent S/P PEDIATRIC PSYCHIATRIST shunt [place] (1997) History of repair of rectocele History of cystocele cystocele repair H/O vaginal hysterectomy History of left knee replacement History of revision of total replacement of right knee joint History of right knee joint replacement History of cholecystectomy History of esophagogastroduodenoscopy (EGD) History of colonoscopy H/O craniotomy x2 to repair chiari malformation with a revision from a bovine patch History of thyroidectomy, subtotal thyroid nodule. no medication. S/P lumbar fusion L2-3, L5-S1 decompression fusion, L3-5 hardware removal (11/25/2020): Grade view 1 with elective glidescope #3, easy, atraumatic at [facility]. Per post-op anesthesia progress note, " Pt received 300 mcg of fentanyl intraop. At the end of the case, pt apneic. After being given narcan, the patient began to SV and was responding to voice. Sent to PACU and did well in recovery. OK to discharge to floor but continuos pulse oximetry monitoring order placed." T10-L2 decompression/fusion (04/01/2022): Grade 1 view, "Elective" Glidescope#3, ETT 7.0, atraumatic. No issues noted per anesthesia post-op progress note. H/O laminectomy C1-C2 - full rom History of cataract surgery bilateral History of tonsillectomy History of cardiac cath 20+ years ago -- no stents. Family History Other Family history of colon cancer in mother Family history of diabetes mellitus in father No family history of adverse response to anesthesia Social History Smoking Status: Never smoker Second Hand Exposure: Yes (as a child); Do You Dip or Chew Tobacco: No; Hx Alcohol Use: No Hx Substance Use: No Preferred Language: Qatari Communication Ability: Effective Assembly Inspector Required: No Beliefs That Will Affect Care: None marital status: Current Living Situation: Spouse Current Living Situation Comment: lives in 2 story home with , currently has difficulty going up/down How many Children do You have: 2 Feels Safe at Home: Yes Assistive Devices: None Allergies Allergies Allergy/AdvReac Type Severity Reaction Status Date / Time adhesive Allergy Mild Blisters Verified 07/04/24 11:40 topiramate [From Topamax] Allergy Mild Chest Pain Verified 07/04/24 11:40 metoclopramide [From Reglan] AdvReac Mild Skin Verified 07/04/24 11:40 crawling Home Meds Home Medications Medication Instructions Recorded Confirmed albuterol sulfate 90 mcg/actuation 1 inh inhalation UD PRN sob 10/29/20 07/04/24 aerosol inhaler (ProAir HFA) alprazolam 0.5 mg tablet 0.5 mg PO TID 10/29/20 07/04/24 baclofen 10 mg tablet 10 mg PO BID 10/29/20 07/04/24 cholecalciferol (vitamin D3) 25 75 mcg PO QAM 10/29/20 07/04/24 mcg (1,000 unit) tablet (Vitamin D3) cyanocobalamin (vitamin B-12) 500 500 mcg PO DAILY 10/29/20 07/04/24 mcg tablet (Vitamin B-12) duloxetine 60 mg capsule,delayed 60 mg PO QAM 10/29/20 07/04/24 release magnesium 250 mg tablet 250 mg PO UD PRN muscle cramps 10/29/20 07/04/24 metoprolol succinate 25 mg 25 mg PO HS 10/29/20 07/04/24 tablet,extended release 24 hr montelukast 10 mg tablet 10 mg PO QPM 10/29/20 07/04/24 pantoprazole 40 mg tablet,delayed 0 mg PO QPM 10/29/20 07/04/24 release potassium chloride 20 mEq 20 meq PO BID 10/29/20 07/04/24 tablet,extended release pregabalin 150 mg capsule (Lyrica) 150 mg PO HS 10/29/20 07/04/24 rizatriptan 10 mg tablet 0 mg PO UD PRN migraines 10/29/20 07/04/24 rosuvastatin 5 mg tablet 5 mg PO QPM 10/29/20 07/04/24 famotidine 20 mg tablet 20 mg PO HS 06/21/24 07/04/24 ferrous sulfate 325 mg (65 mg 325 mg PO BID 06/21/24 07/04/24 iron) tablet fluticasone furoate 100 1 inh inhalation QAM 06/21/24 07/04/24 mcg/actuation blister powder for inhalation (Arnuity Ellipta) oxycodone-acetaminophen 7.5 mg-325 1 tab PO Q8H PRN Pain 06/21/24 07/04/24 mg tablet turmeric 400 mg capsule 400 mg PO DAILY 06/21/24 07/04/24 calcitonin (salmon) 200 0 spray intranasal (ALT) DAILY 07/04/24 07/04/24 unit/actuation nasal spray triamterene 37.5 0 cap PO DAILY 07/04/24 07/04/24 mg-hydrochlorothiazide 25 mg capsule verapamil 120 mg tablet,extended 0 mg PO DAILY 07/04/24 07/04/24 release Previous Rx's Medication Instructions Recorded amoxicillin 875 mg-potassium 1 tab PO BID #6 tabs 07/05/24 clavulanate 125 mg tablet Results & Data (ED) Vital Signs Vital Signs - 24 hr 07/03/24 15:05 07/03/24 16:03 Temperature 36.6 C Temperature Source Temporal Artery Scan Pulse Rate 68 59 L Pulse Rhythm Regular Pulse Strength Normal Respiratory Rate 20 Respiratory Effort / Characteristics Non-Labored Spontaneous Respiratory Depth Normal Respiratory Pattern Regular Blood Pressure 156/87 H Blood Pressure Mean 110 Blood Pressure Position Sitting Pulse Oximetry 95 Oxygen Delivery Method Room Air Sepsis Recent Fever Within 48 Hours No Sepsis New/Unexplained Change in Mental Status No Sepsis Action Taken by Nursing No Action Required Home Medications Current Medication List: was personally reviewed by me Laboratory Data Attestation: I reviewed the patient's lab results. 07/05/24 07:56 07/05/24 07:56 Lab Results 07/03/24 07/03/24 07/03/24 Range/Units 16:35 16:41 20:02 WBC 4.80 (4.8-10.8) K/ul RBC 4.99 (4.20-5.40) M/uL Hgb 14.4 (12.0-16.0) g/dl Hct 45.7 (37.0-47.0) % MCV 91.6 (80.0-100.0) fL MCH 28.9 (25.0-34.0) pg MCHC 31.5 L (32.0-36.0) g/dL RDW Std Deviation 59.4 H (36.4-46.3) fL RDW Coeff of Adriel 17.8 H (11.5-14.5) % Plt Count 211 (130-400) K/uL MPV 9.9 (9.4-12.4) fL Immature Gran % (Auto) 0.4 % Neut % (Auto) 65.4 % Lymph % (Auto) 23.8 % [place] % (Auto) 8.1 % Eos % (Auto) 1.9 % Baso % (Auto) 0.4 % Neut # (Auto) 3.14 (1.40-6.50) K/uL Lymph # (Auto) 1.14 L (1.20-3.40) K/uL [place] # (Auto) 0.39 (0.11-0.59) K/uL Eos # (Auto) 0.09 (0.00-0.50) K/uL Baso # (Auto) 0.02 (0.00-0.20) K/uL Immature Gran # (Auto) 0.02 (0.01-0.20) K/uL PT 10.9 (9.0-12.0) Seconds INR 1.0 (0.9-1.1) APTT 23 (21-31) Seconds PTT Ratio 0.9 Sodium 141 (136-145) mmol/L Potassium 3.8 (3.5-5.1) mmol/L Chloride 105 (98-107) mmol/L Carbon Dioxide 30 (21-32) mmol/L Anion Gap 6 (3-11) BUN 35 H (6-23) mg/dl Creatinine 0.98 (0.6-1.2) mg/dl Est Cr Clr Drug Dosing Not Reportable Est GFR ( Amer) 69.2 ml/min Est GFR (Non-Af Amer) 59.7 ml/min BUN/Creatinine Ratio 35.7 H (10-20) Glucose 100 H (70-99(Fasting)) mg/dl Calcium 10.6 H (8.6-10.3) mg/dl Magnesium 2.0 (1.7-2.4) mg/dl Total Bilirubin 0.7 (0.2-1.0) mg/dl AST 25 (13-39) U/L ALT 33 (7-52) U/L Alkaline Phosphatase 95 (34-104) U/L Troponin I High Sens < 2.3 (0-14) pg/ml Total Protein 6.6 (6.0-8.3) gm/dl Albumin 4.4 (3.4-5.0) gm/dl Globulin 2.2 L (2.5-4.0) gm/dl Albumin/Globulin Ratio 2.0 (0.9-2) TSH 0.992 (0.300-4.500) uIu/ml Urine Color Yellow Urine Appearance Cloudy A (Clear) Urine pH 5.5 (4.5-7.5) Ur Specific [place] > 1.045 H (1.000-1.030) Urine Protein Negative (Negative) Urine Glucose (UA) Negative (Negative) Urine Ketones Negative (Negative) Urine Blood Negative (Negative) Urine Nitrite Negative (Negative) Urine Bilirubin Negative (Negative) Urine Urobilinogen Negative (Negative) Ur Leukocyte Esterase 2+ H (Negative) Urine WBC (Auto) >50 H (0-5) /hpf Urine RBC (Auto) 0-2 (0-2) /hpf U Hyaline Cast (Auto) 3-5 H (0-2) /lpf U Epithel Cells (Auto) 11-20 H (0-2) /hpf Urine Bacteria (Auto) 2+ H (None Seen) Lyme Disease Screen Negative (Negative) SARS-CoV-2 (PCR) NEGATIVE (Negative) Influenza Type A (PCR) Negative (Neg) Influenza Type B (PCR) Negative (Neg) RSV (RT-PCR) Negative (Neg) Administered Medications Discontinued Medications Alprazolam (Alprazolam 0.5 Mg Tablet) 0.5 mg PO Q8H PRN PRN Reason: Anxiety/Agitation Stop: 08/03/24 10:01 Last Admin: 07/05/24 08:46 Dose: 0.5 mg Documented By: Admin: 07/04/24 20:55 Dose: 0.5 mg Documented By: Admin: 07/04/24 13:29 Dose: 0.5 mg Documented By: BONI Baclofen (Baclofen 10 Mg Tab) 10 mg PO BID [facility] Stop: 08/03/24 01:59 Last Admin: 07/04/24 02:07 Dose: 10 mg Documented By: JOSE RAUL Baclofen (Baclofen 10 Mg Tab) 10 mg PO NOW ONE Stop: 07/04/24 10:16 Last Admin: 07/04/24 11:06 Dose: 10 mg Documented By: BONI Baclofen (Baclofen 20 Mg Tab) 20 mg PO BID [facility] Stop: 08/03/24 20:59 Last Admin: 07/05/24 08:47 Dose: 20 mg Documented By: Admin: 07/04/24 22:10 Dose: 20 mg Documented By: ENRIQUE Cyanocobalamin (Cyanocobalamin (B-12) 500 Mcg Tablet) 500 mcg PO DAILY DEBORAH Stop: 08/03/24 08:59 Last Admin: 07/05/24 08:46 Dose: 500 mcg Documented By: Admin: 07/04/24 08:28 Dose: 500 mcg Documented By: BONI Duloxetine HCl (Duloxetine Hcl 60 Mg Cap) 60 mg PO QAM [facility] Stop: 08/03/24 10:14 Last Admin: 07/05/24 08:47 Dose: 60 mg Documented By: Admin: 07/04/24 11:07 Dose: 60 mg Documented By: BONI Enoxaparin Sodium (Enoxaparin Inj 40 Mg/0.4 Ml Syr) 40 mg SQ Q12H DEBORAH Stop: 08/02/24 21:59 Last Admin: 07/04/24 02:07 Dose: 40 mg Documented By: JOSE RAUL Famotidine (Famotidine 20 Mg Tab) 20 mg PO HS DEBORAH Stop: 08/03/24 20:59 Last Admin: 07/04/24 22:10 Dose: 20 mg Documented By: ENRIQUE Sodium Chloride (Nss) 500 mls @ 999 mls/hr IV .Q31M ONE Stop: 07/03/24 16:57 Last Infusion: 07/03/24 18:07 Dose: Infused Documented By: Admin: 07/03/24 16:39 Dose: 999 mls/hr Documented By: BRITTANI Sodium Chloride (Nss) 500 mls @ 999 mls/hr IV .Q31M ONE Stop: 07/03/24 19:07 Last Infusion: 07/03/24 20:03 Dose: Infused Documented By: Admin: 07/03/24 19:07 Dose: 999 mls/hr Documented By: RIMA(2) Ceftriaxone Sodium (Rocephin) 2,000 mg in 50 mls @ 100 mls/hr IV NOW STA Stop: 07/03/24 21:24 Last Infusion: 07/03/24 22:10 Dose: Infused Documented By: Admin: 07/03/24 21:17 Dose: 100 mls/hr Documented By: RIMA(2) Ceftriaxone Sodium (Rocephin) 2,000 mg in 50 mls @ 100 mls/hr IV Q24H DEBORAH Stop: 07/14/24 20:59 Last Infusion: 07/05/24 16:12 Dose: Infused Documented By: Admin: 07/05/24 15:27 Dose: 100 mls/hr Documented By: Infusion: 07/04/24 23:00 Dose: Infused Documented By: Admin: 07/04/24 22:17 Dose: 100 mls/hr Documented By: ENRIQUE Sodium Chloride (Nss) 1,000 mls @ 80 mls/hr IV .[id number] DEBORAH Stop: 07/04/24 11:44 Last Infusion: 07/04/24 13:34 Dose: Infused Documented By: Admin: 07/04/24 00:47 Dose: 80 mls/hr Documented By: JOSE RAUL Ioversol (Optiray 320 125ml) 116 ml IV ONCE ONE Stop: 07/03/24 17:34 Last Admin: 07/03/24 17:33 Dose: 116 ml Documented By: BRANDY Lidocaine (Lidocaine 4% Cream 15 Gm Tube) 1 appln EXT HS PRN PRN Reason: Pain Stop: 08/03/24 18:19 Last Admin: 07/04/24 22:17 Dose: 1 appln Documented By: ENRIQUE Metoprolol Succinate (Metoprolol Succ 25mg Ext Rel Tab) 25 mg PO HS [facility] Stop: 08/03/24 20:59 Last Admin: 07/04/24 22:10 Dose: 25 mg Documented By: ENRIQUE Montelukast Sodium (Montelukast Sodium 10 Mg Tablet) 10 mg PO QPM [facility] Stop: 08/03/24 20:59 Last Admin: 07/04/24 22:10 Dose: 10 mg Documented By: ENRIQUE Oxycodone/Acetaminophen (Oxycodone/Apap 7.5/325mg Tab) 1 tab PO TID [facility] Stop: 07/18/24 01:59 Last Admin: 07/05/24 15:02 Dose: 1 tab Documented By: Admin: 07/05/24 08:46 Dose: 1 tab Documented By: Admin: 07/04/24 22:11 Dose: 1 tab Documented By: Admin: 07/04/24 15:26 Dose: 1 tab Documented By: Admin: 07/04/24 08:28 Dose: 1 tab Documented By: Admin: 07/04/24 02:07 Dose: 1 tab Documented By: JOSE RAUL Pantoprazole Sodium (Pantoprazole 40 Mg Tab) 40 mg PO QPM [facility] Stop: 08/03/24 20:59 Last Admin: 07/04/24 22:10 Dose: 40 mg Documented By: ENRIQUE Pregabalin (Pregabalin 150 Mg Cap) 150 mg PO [facility] Stop: 08/03/24 01:59 Last Admin: 07/04/24 22:11 Dose: 150 mg Documented By: Admin: 07/04/24 02:07 Dose: 150 mg Documented By: JOSE RAUL Rosuvastatin Calcium (Rosuvastatin Calcium 5 Mg Tab) 5 mg PO QPM [facility] Stop: 08/03/24 20:59 Last Admin: 07/04/24 22:10 Dose: 5 mg Documented By: ENRIQUE Vitamin D (Cholecalciferol 25 Mcg (1000 Units) Tab) 75 mcg PO QAM [facility] Stop: 08/03/24 08:59 Last Admin: 07/05/24 08:47 Dose: 75 mcg Documented By: Admin: 07/04/24 08:29 Dose: 75 mcg Documented By: CSE Imaging Data Radiologist's Impression: Chest X-Ray 07/03/24 15:08 XR chest 1V portable CLINICAL HISTORY: Weakness TECHNIQUE: Single frontal radiograph of the chest was obtained. Comparison: Comparison is made to chest radiograph 03/11/2022 FINDINGS: No lines and tubes are seen. Aortic valvular prosthesis is seen. The lungs are clear. No evidence of pleural effusion or pneumothorax. IMPRESSION: No acute chest disease. ACT 112: Negative or not required by law. Electronically signed by: Giorgi Sykes M.D. 07/03/2024 4:[address] 07/03/24 16:25 CT angio neck with con, CT head/brain wo con, CT angio head w con CLINICAL HISTORY: confusion, ?movement disorder vs weakness of hands TECHNIQUE: Contiguous axial CT images of the head were acquired from the base of the skull to the vertex without intravenous contrast administration. CT angiography of the head and neck was performed following intravenous administration of iodinated contrast. Coronal and sagittal MIPS were obtained from the axial data set and were submitted for review. Automated dose lowering techniques and/or adjustment according to patient size were utilized for this examination. All measurements were calculated based on NASCET criteria. CT DOSE: 1039.95 mGy.cm Comparison: None available at the time of this dictation. FINDINGS: CT head: There is no acute intracranial hemorrhage or evidence of acute territorial infarction. No shift of the midline structures, mass effect, or extra-axial abnormalities are shown. Right PEDIATRIC PSYCHIATRIST shunt terminates in the right lateral ventricle. Right thyroid nodule is seen. Bone overgrowth is noted in the medial aspect of mandible. CTA Neck: A 3 vessel aortic arch is shown. There is no significant atherosclerotic plaque in the aortic arch or the origins of the innominate, left common carotid, and left subclavian arteries. The common carotid, external carotid, cervical segments of the internal carotid arteries, and the cervical segments of the vertebral arteries are patent without hemodynamically significant stenosis. The left vertebral artery is dominant. CTA Head: The anterior and posterior cerebral circulations are patent. No hemodynamically significant stenosis, aneurysm, dissection, or arteriovenous malformation is shown. IMPRESSION: 1. No acute intracranial hemorrhage, evidence of acute territorial infarction, or other acute intracranial disease process. 2. No occlusion, hemodynamically significant stenosis, or dissection in the major cervical arteries. 3. No occlusion, hemodynamically significant stenosis, aneurysm, dissection, or arteriovenous malformation in the major intracranial arteries. Assessment of stenosis of the internal carotid arteries is based on NASCET criteria. ACT 112: Negative or not required by law. Electronically signed by: Giorgi Sykes M.D. 07/03/2024 6:09 PM Head CTA 07/03/24 16:25 CT angio neck with con, CT head/brain wo con, CT angio head w con CLINICAL HISTORY: confusion, ?movement disorder vs weakness of hands TECHNIQUE: Contiguous axial CT images of the head were acquired from the base of the skull to the vertex without intravenous contrast administration. CT angiography of the head and neck was performed following intravenous administration of iodinated contrast. Coronal and sagittal MIPS were obtained from the axial data set and were submitted for review. Automated dose lowering techniques and/or adjustment according to patient size were utilized for this examination. All measurements were calculated based on NASCET criteria. CT DOSE: 1039.95 mGy.cm Comparison: None available at the time of this dictation. FINDINGS: CT head: There is no acute intracranial hemorrhage or evidence of acute territorial infarction. No shift of the midline structures, mass effect, or extra-axial abnormalities are shown. Right PEDIATRIC PSYCHIATRIST shunt terminates in the right lateral ventricle. Right thyroid nodule is seen. Bone overgrowth is noted in the medial aspect of mandible. CTA Neck: A 3 vessel aortic arch is shown. There is no significant atherosclerotic plaque in the aortic arch or the origins of the innominate, left common carotid, and left subclavian arteries. The common carotid, external carotid, cervical segments of the internal carotid arteries, and the cervical segments of the vertebral arteries are patent without hemodynamically significant stenosis. The left vertebral artery is dominant. CTA Head: The anterior and posterior cerebral circulations are patent. No hemodynamically significant stenosis, aneurysm, dissection, or arteriovenous malformation is shown. IMPRESSION: 1. No acute intracranial hemorrhage, evidence of acute territorial infarction, or other acute intracranial disease process. 2. No occlusion, hemodynamically significant stenosis, or dissection in the major cervical arteries. 3. No occlusion, hemodynamically significant stenosis, aneurysm, dissection, or arteriovenous malformation in the major intracranial arteries. Assessment of stenosis of the internal carotid arteries is based on NASCET criteria. ACT 112: Negative or not required by law. Electronically signed by: Giorgi Sykes M.D. 07/03/2024 6:09 PM Neck CTA 07/03/24 16:25 CT angio neck with con, CT head/brain wo con, CT angio head w con CLINICAL HISTORY: confusion, ?movement disorder vs weakness of hands TECHNIQUE: Contiguous axial CT images of the head were acquired from the base of the skull to the vertex without intravenous contrast administration. CT angiography of the head and neck was performed following intravenous administration of iodinated contrast. Coronal and sagittal MIPS were obtained from the axial data set and were submitted for review. Automated dose lowering techniques and/or adjustment according to patient size were utilized for this examination. All measurements were calculated based on NASCET criteria. CT DOSE: 1039.95 mGy.cm Comparison: None available at the time of this dictation. FINDINGS: CT head: There is no acute intracranial hemorrhage or evidence of acute territorial infarction. No shift of the midline structures, mass effect, or extra-axial abnormalities are shown. Right PEDIATRIC PSYCHIATRIST shunt terminates in the right lateral ventricle. Right thyroid nodule is seen. Bone overgrowth is noted in the medial aspect of mandible. CTA Neck: A 3 vessel aortic arch is shown. There is no significant atherosclerotic plaque in the aortic arch or the origins of the innominate, left common carotid, and left subclavian arteries. The common carotid, external carotid, cervical segments of the internal carotid arteries, and the cervical segments of the vertebral arteries are patent without hemodynamically significant stenosis. The left vertebral artery is dominant. CTA Head: The anterior and posterior cerebral circulations are patent. No hemodynamically significant stenosis, aneurysm, dissection, or arteriovenous malformation is shown. IMPRESSION: 1. No acute intracranial hemorrhage, evidence of acute territorial infarction, or other acute intracranial disease process. 2. No occlusion, hemodynamically significant stenosis, or dissection in the major cervical arteries. 3. No occlusion, hemodynamically significant stenosis, aneurysm, dissection, or arteriovenous malformation in the major intracranial arteries. Assessment of stenosis of the internal carotid arteries is based on NASCET criteria. ACT 112: Negative or not required by law. Electronically signed by: Giorgi Sykes M.D. 07/03/2024 6:09 PM Abdomen X-Ray 07/03/24 18:21 XR skull <4V, XR cervical spine 2 or 3V, XR chest 2V PA/lateral, XR abdomen min 2V CLINICAL HISTORY: Visualize Shunt TECHNIQUE: 2 views of the skull were obtained. 2 views of the cervical spine, chest, and abdomen were obtained. Comparison: Comparison is made to CTA head and neck 07/03/2024 FINDINGS: The shunt catheter is noted to terminate at the level of the calvarium. No intact catheter is seen in the level of the cervical spine, chest, or abdomen. No acute fractures are identified. The sinuses are clear. Calcific densities in the anterior calvarium may represent hyperostosis frontalis. There are no soft tissue abnormalities. Dental implants and postcraniotomy changes are seen. Posterior thoracolumbar spinal fixation hardware is seen. Cardiomegaly is noted. The lungs are clear. Degenerative changes are bilateral hip joints. IMPRESSION: The shunt catheter is not seen past the level of the calvarium. Correlation for history of distal catheter removal is recommended. Of note, the patient does not have hydrocephalus on CTA head and neck performed today. ACT 112: Negative or not required by law. Electronically signed by: Giorgi Sykes M.D. 07/03/2024 7:48 PM Cervical Spine X-Ray 07/03/24 18:21 XR skull <4V, XR cervical spine 2 or 3V, XR chest 2V PA/lateral, XR abdomen min 2V CLINICAL HISTORY: Visualize Shunt TECHNIQUE: 2 views of the skull were obtained. 2 views of the cervical spine, chest, and abdomen were obtained. Comparison: Comparison is made to CTA head and neck 07/03/2024 FINDINGS: The shunt catheter is noted to terminate at the level of the calvarium. No intact catheter is seen in the level of the cervical spine, chest, or abdomen. No acute fractures are identified. The sinuses are clear. Calcific densities in the anterior calvarium may represent hyperostosis frontalis. There are no soft tissue abnormalities. Dental implants and postcraniotomy changes are seen. Posterior thoracolumbar spinal fixation hardware is seen. Cardiomegaly is noted. The lungs are clear. Degenerative changes are bilateral hip joints. IMPRESSION: The shunt catheter is not seen past the level of the calvarium. Correlation for history of distal catheter removal is recommended. Of note, the patient does not have hydrocephalus on CTA head and neck performed today. ACT 112: Negative or not required by law. Electronically signed by: Giorgi Sykes M.D. 07/03/2024 7:48 PM Chest X-Ray 07/03/24 18:21 XR skull <4V, XR cervical spine 2 or 3V, XR chest 2V PA/lateral, XR abdomen min 2V CLINICAL HISTORY: Visualize Shunt TECHNIQUE: 2 views of the skull were obtained. 2 views of the cervical spine, chest, and abdomen were obtained. Comparison: Comparison is made to CTA head and neck 07/03/2024 FINDINGS: The shunt catheter is noted to terminate at the level of the calvarium. No intact catheter is seen in the level of the cervical spine, chest, or abdomen. No acute fractures are identified. The sinuses are clear. Calcific densities in the anterior calvarium may represent hyperostosis frontalis. There are no soft tissue abnormalities. Dental implants and postcraniotomy changes are seen. Posterior thoracolumbar spinal fixation hardware is seen. Cardiomegaly is noted. The lungs are clear. Degenerative changes are bilateral hip joints. IMPRESSION: The shunt catheter is not seen past the level of the calvarium. Correlation for history of distal catheter removal is recommended. Of note, the patient does not have hydrocephalus on CTA head and neck performed today. ACT 112: Negative or not required by law. Electronically signed by: Giorgi Sykes M.D. 07/03/2024 7:48 PM Skull X-Ray 07/03/24 18:21 XR skull <4V, XR cervical spine 2 or 3V, XR chest 2V PA/lateral, XR abdomen min 2V CLINICAL HISTORY: Visualize Shunt TECHNIQUE: 2 views of the skull were obtained. 2 views of the cervical spine, chest, and abdomen were obtained. Comparison: Comparison is made to CTA head and neck 07/03/2024 FINDINGS: The shunt catheter is noted to terminate at the level of the calvarium. No intact catheter is seen in the level of the cervical spine, chest, or abdomen. No acute fractures are identified. The sinuses are clear. Calcific densities in the anterior calvarium may represent hyperostosis frontalis. There are no soft tissue abnormalities. Dental implants and postcraniotomy changes are seen. Posterior thoracolumbar spinal fixation hardware is seen. Cardiomegaly is noted. The lungs are clear. Degenerative changes are bilateral hip joints. IMPRESSION: The shunt catheter is not seen past the level of the calvarium. Correlation for history of distal catheter removal is recommended. Of note, the patient does not have hydrocephalus on CTA head and neck performed today. ACT 112: Negative or not required by law. Electronically signed by: Giorgi Sykes M.D. 07/03/2024 7:48 PM Discharge Plan Visit Data Chief Complaint: Confusion Stated Complaint: FEELING OFF, WAS REF BY [facility] ED Provider: Cornelio Valladares Discharge Problem: Acute confusion due to infection, Acute UTI, History of ventriculoperitoneal shunting Patient Disposition: Admitted As Inpatient Discharge Instructions Interventions: ED Discharge Assessment Last Done: 07/04/24 00:02
[2024-07-03] MEDS: SODIUM CHLORIDE 0.9% 500 ML IV ONE ×2 (16:39→19:07)
[2024-07-03 16:49] LABS: Basophils # (auto) 0.02 K/uL (0.00-0.20); Basophils % (auto) 0.4 %; Eosinophils # (auto) 0.09 K/uL (0.00-0.50); Eosinophils % (auto) 1.9 %; Hematocrit (blood only) 45.7 % (37.0-47.0); Hemoglobin 14.4 g/dl (12.0-16.0); Immature Granulocytes # (auto) 0.02 K/uL (0.01-0.20); Immature Granulocytes % (auto) 0.4 %; Lymphocytes # (auto) 1.14 K/uL (1.20-3.40); Lymphocytes % (auto) 23.8 %; Mean Corpuscular Hemoglobin 28.9 pg (25.0-34.0); Mean Corpuscular Hgb Conc 31.5 g/dL (32.0-36.0); Mean Corpuscular Volume 91.6 fL (80.0-100.0); Mean Platelet Volume 9.9 fL (9.4-12.4); Monocytes # (auto) 0.39 K/uL (0.11-0.59); Monocytes % (auto) 8.1 %; Neutrophils # (auto) 3.14 K/uL (1.40-6.50); Neutrophils % (auto) 65.4 %; Platelet Count 211 K/uL (130-400); RDW Coefficient of Variation 17.8 % (11.5-14.5); RDW Standard Deviation 59.4 fL (36.4-46.3); Red Blood Count 4.99 M/uL (4.20-5.40)
--- NOTE | 2024-07-03 16:50 | XRay Report ---
XR chest 1V portable CLINICAL HISTORY: Weakness TECHNIQUE: Single frontal radiograph of the chest was obtained. Comparison: Comparison is made to chest radiograph 03/11/2022 FINDINGS: No lines and tubes are seen. Aortic valvular prosthesis is seen. The lungs are clear. No evidence of pleural effusion or pneumothorax. IMPRESSION: No acute chest disease. ACT 112: Negative or not required by law. Electronically signed by: Giorgi Sykes M.D. 07/03/2024 4:49 PM
[2024-07-03 17:06] LABS: Alanine Aminotransferase 33 U/L (7-52); Albumin Level 4.4 gm/dl (3.4-5.0); Alkaline Phosphatase 95 U/L (34-104); Anion Gap 6 (3-11); Aspartate Aminotransferase 25 U/L (13-39); BUN Creatinine Ratio 35.7 (10-20); Bilirubin,Total 0.7 mg/dl (0.2-1.0); Blood Urea Nitrogen 35 mg/dl (6-23); Calcium 10.6 mg/dl (8.6-10.3); Carbon Dioxide 30 mmol/L (21-32); Chloride 105 mmol/L (98-107); Est GFR (African American) 69.2 ml/min; Est GFR (Non-African American) 59.7 ml/min; Globulin 2.2 gm/dl (2.5-4.0); Glucose 100 mg/dl (70-99(Fasting)); Potassium 3.8 mmol/L (3.5-5.1); Sodium 141 mmol/L (136-145); Total Protein 6.6 gm/dl (6.0-8.3)
[2024-07-03 17:12] LABS: Troponin I High Sensitivity < 2.3 pg/ml (0-14)
[2024-07-03 17:16] LABS: Partial Thromboplastin Ratio 0.9; Partial Thromboplastin Time 23 Seconds (21-31); Prothrombin Time 10.9 Seconds (9.0-12.0)
[2024-07-03 17:21] LABS: Thyroid Stimulating Hormone 0.992 uIu/ml (0.300-4.500)
[2024-07-03 17:29] LABS: Influenza A virus by PCR Negative (Neg); Influenza B virus by PCR Negative (Neg); RSV by PCR Negative (Neg); SARS CoV2 RNA(COVID-19) Ceph NEGATIVE (Negative)
[2024-07-03] MEDS: OPTIRAY 320 125ml IV ONE (17:33)
--- NOTE | 2024-07-03 18:10 | CT Scan Report ---
CT angio neck with con, CT head/brain wo con, CT angio head w con CLINICAL HISTORY: confusion, ?movement disorder vs weakness of hands TECHNIQUE: Contiguous axial CT images of the head were acquired from the base of the skull to the misty yoli without intravenous contrast administration. CT angiography of the head and neck was performed f ollowing intravenous administration of iodinated contrast. Coronal and sagittal MIPS were obtained fr om the axial data set and were submitted for review. Automated dose lowering techniques and/or adjus tment according to patient size were utilized for this examination. All measurements were calculated based on NASCET criteria. CT DOSE: 1039.95 mGy.cm Comparison: None available at the time of this dictation. FINDINGS: CT head: There is no acute intracranial hemorrhage or evidence of acute territorial infarction. No sh ift of the midline structures, mass effect, or extra-axial abnormalities are shown. Right SHE[employer]ER[employer] shunt te rminates in the right lateral ventricle. Right thyroid nodule is seen. Bone overgrowth is noted in the medial aspect of mandible. CTA Neck: A 3 vessel aortic arch is shown. There is no significant atherosclerotic plaque in the aor tic arch or the origins of the innominate, left common carotid, and left subclavian arteries. The co mmon carotid, external carotid, cervical segments of the internal carotid arteries, and the cervical segments of the vertebral arteries are patent without hemodynamically significant stenosis. The left vertebral artery is dominant. CTA Head: The anterior and posterior cerebral circulations are patent. No hemodynamically significan t stenosis, aneurysm, dissection, or arteriovenous malformation is shown. IMPRESSION: 1. No acute intracranial hemorrhage, evidence of acute territorial infarction, or other acute intrac ranial disease process. 2. No occlusion, hemodynamically significant stenosis, or dissection in the major cervical arteries. 3. No occlusion, hemodynamically significant stenosis, aneurysm, dissection, or arteriovenous malfor mation in the major intracranial arteries. Assessment of stenosis of the internal carotid arteries is based on NASCET criteria. ACT 112: Negative or not required by law. Electronically signed by: Giorgi Sykes M.D. 07/03/2024 6:09 PM
--- NOTE | 2024-07-03 19:49 | XRay Report ---
XR skull <4V, XR cervical spine 2 or 3V, XR chest 2V PA/lateral, XR abdomen min 2V CLINICAL HISTORY: Visualize Shunt TECHNIQUE: 2 views of the skull were obtained. 2 views of the cervical spine, chest, and abdomen were obtained. Comparison: Comparison is made to CTA head and neck 07/03/2024 FINDINGS: The shunt catheter is noted to terminate at the level of the calvarium. No intact catheter is seen in the level of the cervical spine, chest, or abdomen. No acute fractures are identified. The sinuses are clear. Calcific densities in the anterior calvariu m may represent hyperostosis frontalis. There are no soft tissue abnormalities. Dental implants and postcraniotomy changes are seen. Posterior thoracolumbar spinal fixation hardware is seen. Cardiomegaly is noted. The lungs are clear. Degenerative changes are bilateral hip joints. IMPRESSION: The shunt catheter is not seen past the level of the calvarium. Correlation for history of distal cat heter removal is recommended. Of note, the patient does not have hydrocephalus on CTA head and neck p erformed today. ACT 112: Negative or not required by law. Electronically signed by: Giorgi Sykes M.D. 07/03/2024 7:48 PM
[2024-07-03 20:33] LABS: Appearance Urine Cloudy (Clear); Bacteria Urine Automated 2+ (None Seen); Bilirubin Urine Negative (Negative); Blood Urine Negative (Negative); Color Urine Yellow; Glucose Urine UA Negative (Negative); Ketones Urine Negative (Negative); Leukocyte Esterase Urine 2+ (Negative); Nitrite Urine Negative (Negative); Protein Urine Negative (Negative); RBC Urine Automated 0-2 /hpf (0-2); Specific Gravity Urine > 1.045 (1.000-1.030); Urobilinogen Urine Negative (Negative); WBC Urine Automated >50 /hpf (0-5); pH Urine 5.5 (4.5-7.5)
[2024-07-03] MEDS: cefTRIAXone SODIUM 2,000 MG/50 ML BAG IV STA (21:17)
--- NOTE | 2024-07-03 23:33 | History & Physical Report ---
Date of Service July 03, 2024 Assessment & Plan (1) Sepsis due to urinary tract infection: Plan: Acute confusion since this am. now A0x2 unwell 3-4 days, urgency, frequency, dysuria and nausea. cloudy urine, + Lue esterase, Wcc elev., 2+ bact. CXR lungs clear. pt slightly dehydrated BUN 35 ( base line 11) Na 141(N), Ca 10.6 (H) Plan: c/w IV ceftriaxone 2grams daily c/w IVF f/u Urine Cx/s AM lbs Analgesia PRN nausea control prn DVT Px (2) Acute confusion due to infection: Plan: as above. (3) S/P SPECIAL EDUCATION CASE MANAGER shunt: Plan: Pt has a hx of SPECIAL EDUCATION CASE MANAGER-shunt (1997, ) for Chiari malformation. Pt says she has seen [place] usual neuro surgeon in [place] last March 2023 was told everything was fine in regards to shunt and her CT head scans. No neck stiffness, no photophobia, no focal neurology. repeat CT head scans today - NO evidence of hydrocephalus / shunt block/acute stroke/IC bleeds. Acute confusion likely due to UTI. Plan: Monitor vitals To gather additional information - external records from her neurosurgeon, [place]. AM labs. Plan other chronic conditions : continue with home meds. as appropriate on this acute admission. 4) Anxiety 5)Neurogenic claudication due to lumbar spinal stenosis 6)Chronic back pain 7)Kidney stones 8)GERD (gastroesophageal reflux disease) 9)Depression 10)SVT (supraventricular tachycardia) 11)Hyperlipidemia 12)Hypertension 13)Sleep apnea CPAP (compliant) 14)Asthma History of Present Illness Chief Complaint: Acute confusion. Primary Care Provider: Bart Nava DO Pt was brought in by by her who found her to be acutely confused this morning. History gathered from patient and her Mr Sandhu (PoA) by the bedside. As per Pt was confused "doesn't know how use her phone" and cant figure out appointments looking at her calender on her diary and hands were bit shaky and was dropping things. So got concerned and brought her to hospital. As today she also was also scheduled for pre-op check for a procedure for spinal stimulator for her chronic back pain. pt she that she has been feeling unwell for the last 3-4 days, increased urinary frequency, urgency mild dysuria and nausea but denies any fevers, chills, vomiting, hematuria or flank pain. Denies any headache, neck stiffness, photophobia, gait abnormality ( uses walker at baseline -no change), no new worsening incontinence (hx of chronic urinary incontinence). Pt says she has hx of constipation on and off , last bowel movement a day ago, was normal. Denies hx of cough, SoB, chest pain. Pt has a hx of SPECIAL EDUCATION CASE MANAGER-shunt (1996, ) for Chiari malformation. Pt says she has seen [place] usual neuro surgeon [place] last March 2023 was told everything was fine in regards to shunt and her CT head scans. Pt is for full code confirmed with patient and her . Allergies Allergy/AdvReac Type Severity Reaction Status Date / Time adhesive Allergy Mild Blisters Verified 06/30/24 12:34 topiramate [From Topamax] Allergy Mild Chest Pain Verified 06/21/24 11:50 metoclopramide [From Reglan] AdvReac Mild Skin Verified 06/30/24 12:34 crawling Home Medications Medication Instructions Recorded Confirmed Type albuterol sulfate 90 mcg/actuation 1 inh inhalation UD PRN sob 10/29/20 06/21/24 History aerosol inhaler (ProAir HFA) alprazolam 0.5 mg tablet 0.5 mg PO TID 10/29/20 06/21/24 History baclofen 10 mg tablet 10 mg PO BID 10/29/20 06/21/24 History cholecalciferol (vitamin D3) 25 75 mcg PO QAM 10/29/20 06/21/24 History mcg (1,000 unit) tablet (Vitamin D3) cyanocobalamin (vitamin B-12) 500 500 mcg PO DAILY 10/29/20 06/21/24 History mcg tablet (Vitamin B-12) duloxetine 60 mg capsule,delayed 60 mg PO QAM 10/29/20 06/21/24 History release magnesium 250 mg tablet 250 mg PO UD PRN muscle cramps 10/29/20 06/21/24 History metoprolol succinate 25 mg 25 mg PO HS 10/29/20 06/21/24 History tablet,extended release 24 hr montelukast 10 mg tablet 10 mg PO QPM 10/29/20 06/21/24 History pantoprazole 40 mg tablet,delayed 40 mg PO QPM 10/29/20 06/21/24 History release potassium chloride 20 mEq 20 meq PO BID 10/29/20 06/21/24 History tablet,extended release pregabalin 150 mg capsule (Lyrica) 150 mg PO HS 10/29/20 06/21/24 History rizatriptan 10 mg tablet 10 mg PO UD PRN migraines 10/29/20 06/21/24 History rosuvastatin 5 mg tablet 5 mg PO QPM 10/29/20 06/21/24 History diclofenac sodium 75 mg 75 mg PO BID 03/11/22 06/21/24 History tablet,delayed release famotidine 20 mg tablet 20 mg PO HS 06/21/24 06/21/24 History ferrous sulfate 325 mg (65 mg 325 mg PO BID 06/21/24 06/21/24 History iron) tablet fluticasone furoate 100 1 inh inhalation QAM 06/21/24 06/21/24 History mcg/actuation blister powder for inhalation (Arnuity Ellipta) oxycodone-acetaminophen 7.5 mg-325 1 tab PO TID 06/21/24 06/21/24 History mg tablet turmeric 400 mg capsule 400 mg PO DAILY 06/21/24 06/21/24 History Past Med/Surg History Problem List (Updated 07/03/24 @ 23:31 by José Luis Parisi MD) Sepsis due to urinary tract infection Acute confusion due to infection Postoperative anemia Hypokalemia Asthma PSVT (paroxysmal supraventricular tachycardia) Sleep apnea Dyslipidemia HTN (hypertension) Neurogenic claudication due to lumbar spinal stenosis Encounter for pre-operative examination Anxiety Medical History (Updated 07/03/24 @ 23:31 by José Luis Parisi MD) History of Chiari malformation s/p craniotomy/repair x2 Anxiety Neurogenic claudication due to lumbar spinal stenosis History of hypokalemia History of COVID-19 x3 Most recent 09/2023 > residual sinus issues since Morbid obesity History of anemia s/p back surgery 11/2020 No known hx blood transfusion Hemangioma of liver x2 - monitoring Hydrocephalus SPECIAL EDUCATION CASE MANAGER Shunt (~1997) No recent issues, monitored by PCP Hiatal hernia Meniere's disease Osteoarthritis Degenerative disc disease Chronic back pain Kidney stones Hx GERD (gastroesophageal reflux disease) controlled Depression SVT (supraventricular tachycardia) Hx Follows with cardio/Dr. Korey Galna Hyperlipidemia Hypertension Sleep apnea CPAP (compliant) Asthma Surgical History (Updated 06/30/24 @ 12:40 by Monique Beth) History of spinal fusion 04/01/22 @ [facility] Dr. Cárdenas T10-L2 Nausea and vomiting after administration of anesthetic agent S/P SPECIAL EDUCATION CASE MANAGER shunt [place], [place] (1997) History of repair of rectocele History of cystocele cystocele repair H/O vaginal hysterectomy History of left knee replacement History of revision of total replacement of right knee joint History of right knee joint replacement History of cholecystectomy History of esophagogastroduodenoscopy (EGD) History of colonoscopy H/O craniotomy x2 to repair chiari malformation with a revision from a bovine patch History of thyroidectomy, subtotal thyroid nodule. no medication. S/P lumbar fusion L2-3, L5-S1 decompression fusion, L3-5 hardware removal (11/25/2020): Grade view 1 with elective glidescope #3, easy, atraumatic at [facility]. Per post-op anesthesia progress note, " Pt received 300 mcg of fentanyl intraop. At the end of the case, pt apneic. After being given narcan, the patient began to SV and was responding to voice. Sent to PACU and did well in recovery. OK to discharge to floor but continuos pulse oximetry monitoring order placed." T10-L2 decompression/fusion (04/01/2022): Grade 1 view, "Elective" Glidescope#3, ETT 7.0, atraumatic. No issues noted per anesthesia post-op progress note. H/O laminectomy C1-C2 - full rom History of cataract surgery bilateral History of tonsillectomy History of cardiac cath 20+ years ago -- no stents. Family History Other Family history of colon cancer in mother Family history of diabetes mellitus in father No family history of adverse response to anesthesia Social History Smoking Status: Never smoker Second Hand Exposure: Yes (as a child); Do You Dip or Chew Tobacco: No; Hx Alcohol Use: No Hx Substance Use: No Preferred Language: Omani Communication Ability: Effective Personal Driver Required: No Beliefs That Will Affect Care: None marital status: Current Living Situation: Spouse Current Living Situation Comment: lives in 2 story home with , currently has difficulty going up/down How many Children do You have: 2 Other Information That Helps Us Care for You: No Feels Safe at Home: Yes Safety Concerns: Feels Safe At This Time Assistive Devices: Cane, CPAP, Glasses and Walker Review of Systems Review of Systems: as per HPI Physical Exam Physical Exam: General: Alert and oriented to place, and person and not to time failed to recall today's date. Not in any acute distress. HEENT: Normocephalic, moist oral mucosa, Cardio: Regular rate and rhythm, no murmur, Resp: Lungs clear to auscultation b/l, no wheezes or rhonchi, GI: Soft and nontender, nondistended, bowel sounds active Skin: Warm, pink, dry, Psych: Mood-affect congruence. 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 Gait not checked at this time. Results & Data Results & Data Vital Signs (Past 12 Hours) Vital Signs Temp Pulse Pulse Pulse Resp BP BP 07/03/24 21:00 76 12 164/99 H 07/03/24 20:29 164/99 H 07/03/24 19:30 175/99 H 07/03/24 19:11 60 16 172/92 H 07/03/24 16:25 57 L 07/03/24 16:25 07/03/24 16:03 59 L 07/03/24 15:05 36.6 C 68 20 156/87 H Pulse Ox O2 Del Method 07/03/24 21:00 94 Room Air 07/03/24 20:29 07/03/24 19:30 97 07/03/24 19:11 98 Room Air 07/03/24 16:25 95 Room Air 07/03/24 16:25 95 Room Air 07/03/24 16:03 07/03/24 15:05 95 Room Air Code Status & VTE Plan VTE Prophylaxis Plan VTE Prophylaxis will be ordered: Yes Supervising Physician Co-Signing Physician Notes Attending addendum: I have physically seen this patient, have supervised the medical residents [place], and agree with the H&P unless as otherwise noted. Assessment and Plan: Confusion- Patient had initially been seen by anesthesiology for preoperative consultation for spinal stimulator. But due to confusion, was referred to the ED for assessment CT scan head, CTA head and neck with no acute findings Shunt catheter has not seen past the level of the calvarium as noted on skull x- ray, chest x-ray, and x-ray of cervical spine and abdomen No hydrocephalus on CTA head and neck Need to obtain records from previous hospital for neurology to review regarding history of distal catheter removal Symptoms are likely secondary to urinary tract infection, and/or possible inadvertent medication over administration Sepsis due to UTI- Follow urine culture and sensitivity Continue empiric ceftriaxone 2 g IV as started in the ED Status post NSS 500 mL bolus x 2 from the ED NSS at 80 mL/h x 1 L PSVT history- Continue metoprolol succinate 25 mg at bedtime Lumbar spinal stenosis with neurogenic claudication/anxiety- For now, hold alprazolam, baclofen, duloxetine and Lyrica, as there is question whether patient may have inadvertently taken more of these medications than prescribed. Reassess in the a.m. GERD- Continue pantoprazole in the a.m., and famotidine at bedtime Resident Activity Tracking Resident Involvement: Resident Care Provided Care Provided: Adult [facility]
[2024-07-04] MEDS ORDERED: ONDANSETRON INJ 2 MG/ML 2 ML VIAL IV PRN (00:38)
[2024-07-04] MEDS ORDERED: POLYETHYLENE (MIRALAX) 17 GM PACK PO PRN (00:38)
[2024-07-04] MEDS ORDERED: MELATONIN 3 MG TAB PO PRN (00:38)
[2024-07-04] MEDS ORDERED: ACETAMINOPHEN 325 MG TAB PO PRN (00:38)
[2024-07-04] MEDS: SODIUM CHLORIDE 0.9% 1,000 ML IV SCH (00:47)
[2024-07-04] MEDS: PREGABALIN 150 MG CAP PO SCH (02:07)
[2024-07-04] MEDS: ENOXAPARIN INJ 40 MG/0.4 ML SYR SQ SCH (02:07)
[2024-07-04] MEDS: BACLOFEN 10 MG TAB PO SCH (02:07)
[2024-07-04] MEDS: oxyCODONE/APAP 7.5/325MG TAB PO SCH (02:07)
--- NOTE | 2024-07-04 04:55 | Billing Data ---
Date of Service July 04, 2024 Coding Level of Care Code 02113 INT INP/OBS CARE
[2024-07-04] MEDS ORDERED: ALBUTEROL HFA 8 GM INHALER INH PRN (04:58)
[2024-07-04 07:27] LABS: Basophils # (auto) 0.02 K/uL (0.00-0.20); Basophils % (auto) 0.4 %; Eosinophils # (auto) 0.15 K/uL (0.00-0.50); Eosinophils % (auto) 3.2 %; Hematocrit (blood only) 40.2 % (37.0-47.0); Hemoglobin 12.8 g/dl (12.0-16.0); Immature Granulocytes # (auto) 0.03 K/uL (0.01-0.20); Immature Granulocytes % (auto) 0.6 %; Lymphocytes # (auto) 1.41 K/uL (1.20-3.40); Lymphocytes % (auto) 29.8 %; Mean Corpuscular Hemoglobin 28.9 pg (25.0-34.0); Mean Corpuscular Hgb Conc 31.8 g/dL (32.0-36.0); Mean Corpuscular Volume 90.7 fL (80.0-100.0); Mean Platelet Volume 9.8 fL (9.4-12.4); Monocytes # (auto) 0.45 K/uL (0.11-0.59); Monocytes % (auto) 9.5 %; Neutrophils # (auto) 2.67 K/uL (1.40-6.50); Neutrophils % (auto) 56.5 %; Platelet Count 217 K/uL (130-400); RDW Coefficient of Variation 17.4 % (11.5-14.5); RDW Standard Deviation 58.6 fL (36.4-46.3); Red Blood Count 4.43 M/uL (4.20-5.40); White Blood Count 4.73 K/ul (4.8-10.8)
[2024-07-04 07:42] LABS: Albumin Globulin Ratio 2.2 (0.9-2); Albumin Level 3.8 gm/dl (3.4-5.0); BUN Creatinine Ratio 32.4 (10-20); Bilirubin,Total 0.6 mg/dl (0.2-1.0); Calcium 9.6 mg/dl (8.6-10.3); Creatinine Clr Calc Pharmacy 96.2 ml/min; Est GFR (African American) 97.2 ml/min; Est GFR (Non-African American) 83.8 ml/min; Globulin 1.7 gm/dl (2.5-4.0); Potassium 3.6 mmol/L (3.5-5.1); Total Protein 5.5 gm/dl (6.0-8.3)
[2024-07-04] MEDS: CYANOCOBALAMIN (B-12) 500 MCG TABLET PO SCH (08:28)
[2024-07-04] MEDS: CHOLECALCIFEROL 25 MCG (1000 UNITS) TAB PO SCH (08:29)
--- NOTE | 2024-07-04 10:07 | Hospitalist Progress Note ---
Date of Service July 04, 2024 Assessment & Plan (1) Sepsis due to urinary tract infection: Plan: Metabolic encephalopathy Acute confusion for one day, unwell 3-4 days, urgency, frequency, dysuria and nausea. Initially presented to hospital for PAT for spinal stimualtor. UA consistent with infection, UC pinpoint growth, reincubating - Continue ceftriaxone CXR no acute process CT head/CTA head and neck - no acute findings Received sepsis bolus fluids, tolerating diet, and on diuretic at baseline, no additional fluids indicated (2) S/P [employer] shunt: Plan: Pt has a hx of [employer]-shunt (1996, ) for Chiari malformation. Pt says she has seen her usual neuro surgeon in [place] last March 2023 was told everything was fine in regards to shunt and her CT head scans. - knows that her shunt was pushed back but unsure to where No neck stiffness, no photophobia, no focal neurology. repeat CT head scans today - NO evidence of hydrocephalus / shunt block/acute stroke/IC bleeds. Acute confusion likely due to UTI. Records release filled out for neurosurgeon - Dr. Kenney at [facility] (3) Chronic pain: Plan: Also with neurogenic claudication Follow with [facility] pain clinic - continue baclofen 20mg BID, Duloxetine, pregabalin - has percocet TID prn - patient states she always takes 3 doses - diclofenac held There was originally concern that she had taken too many medications - no evidence of this, was just looking for ideas on what could have caused her symptoms. (4) HTN (hypertension): Plan: Triamterene/HCTZ and K supplementatin on hold continue verapamil Plan chronic conditions - anxiety - xanax TID prn (patient states she always takes 3 doses a day) - GERD - continue Pepcid and PPI - PSVT - continue metoprolol - HLD - continue statin - KIKO - patient family will bring in CPAP Dispo: continued inpatient stay DVT proh: SCDs family updated by phone 07/04 Admission and Anticipated Discharge Date Admission Date: July 03, 2024 Subjective Patient seen sitting up in bed, concerns that she has not had her medications in two days, especially her xanax. States she takes this scheduled even though it ordered prn, the same for her percocet. She is followed by the [facility] pain clinic. Confusion is improving, however patient states she is still noticing lapses. Does report a fall a few weeks ago in the bathroom. Gets around with two canes at home Review of Systems Review of Systems: All systems reviewed & are unremarkable except as noted in Subjective Physical Exam Physical Exam: General: NAD, VS as above HEENT: chronic nodule over left clavicle, pt states this is being followed by her ENT, she feels it has decreased in size Resp: normal respiratory effort, lungs clear to auscultation CV: RRR, no murmur, Abd: normal bowel sounds, non tender, no hepatosplenomegaly Extremities: Moves all extremities, no edema Neuro: A&O x3, able to recal that she was confused yesterday and feels that it has improved however still with periods of confusions regarding medications and recent doctors appointments Skin: intact, no lesions noted Results & Data Results & Data Vital Signs (Past 12 Hours) Vital Signs Temp Pulse Pulse Pulse Resp BP BP 07/04/24 07:14 36.3 C L 55 L 16 158/80 H 07/04/24 00:30 36.5 C 68 18 165/80 H 07/04/24 00:02 62 14 162/77 H 07/03/24 23:46 62 14 161/78 H Pulse Ox O2 Del Method 07/04/24 07:14 93 Room Air 07/04/24 00:30 95 Room Air 07/04/24 00:02 95 Room Air 07/03/24 23:46 97 Room Air Laboratory Results CBC and chemistry reviewed PG Care Time/CCT Total # of Minutes Spent Total Time Spent with Patient: Total time spent is greater than 50% in coordination of care (as documented) at patient's floor/unit and/or counseling patient: Coding Level of Care Code 40058 SUB INP/OBS CARE 3/50MIN Diagnoses Sepsis due to urinary tract infection A41.9; N39.0 S/P [employer] shunt Z98.2 Chronic pain G89.29 HTN (hypertension) I10
[2024-07-04] MEDS ORDERED: BACLOFEN 10 MG TAB PO SCH (10:15)
[2024-07-04] MEDS: BACLOFEN 10 MG TAB PO ONE (11:06)
[2024-07-04] MEDS: DULoxetine HCL 60 MG CAP PO SCH (11:07)
[2024-07-04] MEDS: ALPRAZolam 0.5 MG TABLET PO PRN (13:29)
[2024-07-04 19:43] VITALS: TEMP 98.1
[2024-07-04] MEDS: FAMOTIDINE 20 MG TAB PO SCH (22:10)
[2024-07-04] MEDS: MONTELUKAST SODIUM 10 MG TABLET PO SCH (22:10)
[2024-07-04] MEDS: PANTOprazole 40 MG TAB PO SCH (22:10)
[2024-07-04] MEDS: BACLOFEN 20 MG TAB PO SCH (22:10)
[2024-07-04] MEDS: ROSUVASTATIN CALCIUM 5 MG TAB PO SCH (22:10)
[2024-07-04] MEDS: METOPROLOL SUCC 25MG EXT REL TAB PO SCH (22:10)
[2024-07-04] MEDS: LIDOCAINE 4% CREAM 15 GM TUBE EXT PRN (22:17)
[2024-07-04] MEDS: cefTRIAXone SODIUM 2,000 MG/50 ML BAG IV SCH (22:17)
[2024-07-05 07:17] VITALS: BP 150/78; PULSE 67; RESP 16; O2SAT 92
[2024-07-05 08:32] LABS: Albumin Globulin Ratio 2.2 (0.9-2); Albumin Level 4.1 gm/dl (3.4-5.0); BUN Creatinine Ratio 27.4 (10-20); Bilirubin,Total 0.6 mg/dl (0.2-1.0); Calcium 10.2 mg/dl (8.6-10.3); Creatinine Clr Calc Pharmacy 114.8 ml/min; Est GFR (African American) 108.1 ml/min; Est GFR (Non-African American) 93.3 ml/min; Globulin 1.9 gm/dl (2.5-4.0); Potassium 3.5 mmol/L (3.5-5.1)
[2024-07-05 08:43] LABS: Basophils # (auto) 0.02 K/uL (0.00-0.20); Basophils % (auto) 0.5 %; Eosinophils # (auto) 0.09 K/uL (0.00-0.50); Eosinophils % (auto) 2.3 %; Hematocrit (blood only) 40.8 % (37.0-47.0); Hemoglobin 13.2 g/dl (12.0-16.0); Immature Granulocytes # (auto) 0.01 K/uL (0.01-0.20); Immature Granulocytes % (auto) 0.3 %; Lymphocytes # (auto) 0.89 K/uL (1.20-3.40); Lymphocytes % (auto) 23.1 %; Mean Corpuscular Hemoglobin 28.9 pg (25.0-34.0); Mean Corpuscular Hgb Conc 32.4 g/dL (32.0-36.0); Mean Corpuscular Volume 89.5 fL (80.0-100.0); Monocytes # (auto) 0.36 K/uL (0.11-0.59); Monocytes % (auto) 9.3 %; Neutrophils # (auto) 2.49 K/uL (1.40-6.50); Neutrophils % (auto) 64.5 %; Platelet Count 219 K/uL (130-400); RDW Coefficient of Variation 17.2 % (11.5-14.5); RDW Standard Deviation 56.4 fL (36.4-46.3); Red Blood Count 4.56 M/uL (4.20-5.40); White Blood Count 3.86 K/ul (4.8-10.8)
--- NOTE | 2024-07-05 14:55 | Discharge Summary ---
Discharge Summary Date of Service July 05, 2024 Principal Dx & Hospital Course #1 = Principal Diagnosis (1) Sepsis due to urinary tract infection: Metabolic encephalopathy Acute confusion for one day, unwell 3-4 days, urgency, frequency, dysuria and nausea. Initially presented to hospital for PAT for spinal stimualtor. UA consistent with infection, UC gardnerella like bacilli and gamma strep not Enterococcus - received ceftriaxone in the hospital with great improvement, will continue Augmentin at discharge CXR no acute process CT head/CTA head and neck - no acute findings Received sepsis bolus fluids, tolerating diet, and on diuretic at baseline, no additional fluids indicated unclear if patient has been having smaller memory deficits prior to this infection. I did encourage her to follow-up with neurology if she notices continued memory deficits after completion of antibiotics as there may be some underlying cognitive disorder PT/OT - recommend return home with support of (2) S/P REEL OPERATOR shunt: Pt has a hx of REEL OPERATOR-shunt (1997, [place]) for Chiari malformation. Pt says she has seen her usual neuro surgeon in [place] last March 2023 was told everything was fine in regards to shunt and her CT head scans. - knows that her shunt was pushed back but unsure to where No neck stiffness, no photophobia, no focal neurology. repeat CT head scans today - NO evidence of hydrocephalus / shunt block/acute stroke/IC bleeds. Acute confusion likely due to UTI. Records release filled out for neurosurgeon - Dr. Kenney at [facility] recommend patient follow-up with her neurosurgeon to make sure her shunt is in the place he expects it to be (3) Chronic pain: Also with neurogenic claudication Follow with [facility] pain clinic - continue baclofen 20mg BID, Duloxetine, pregabalin - has percocet TID prn - patient states she always takes 3 doses - diclofenac discontinued There was originally concern that she had taken too many medications - no evidence of this, was just looking for ideas on what could have caused her symptoms. (4) HTN (hypertension): Triamterene/HCTZ and K supplementation held but may resume at discharge continue verapamil Plan chronic conditions - anxiety - xanax TID prn (patient states she always takes 3 doses a day) - GERD - continue Pepcid and PPI - PSVT - continue metoprolol - HLD - continue statin - KIKO - continue CPAP Dispo: discharge to home today family updated by phone 07/04 Notes For Next Care Provider admitted with altered mental status, likely result of UTI however urine culture did not grow anything. Will continue to treat on Augmentin There were concerns about her overall shunt placement however we do not have records from her neurosurgeon on where it should have been when he did pull it back. There was no evidence of hydrocephalus and patient's altered mental status improved with antibiotics patiently greatly improving on day of discharge however question true baseline and if confusion persist after UTI treatment would pursue cognitive testing Medication Changes From Visit Augmentin x 3 days Diclofenac stopped Admission HPI Per Admitting Provider Pt was brought in by by her who found her to be acutely confused this morning. History gathered from patient and her Mr Sandhu (PoA) by the bedside. As per Pt was confused "doesn't know how use her phone" and cant figure out appointments looking at her calender on her diary and hands were bit shaky and was dropping things. So got concerned and brought her to hospital. As today she also was also scheduled for pre-op check for a procedure for spinal stimulator for her chronic back pain. pt she that she has been feeling unwell for the last 3-4 days, increased urinary frequency, urgency mild dysuria and nausea but denies any fevers, chills, vomiting, hematuria or flank pain. Denies any headache, neck stiffness, photoph obia, gait abnormality ( uses walker at baseline -no change), no new worsening incontinence (hx of chronic urinary incontinence). Pt says she has hx of constipation on and off , last bowel movement a day ago, was normal. Denies hx of cough, SoB, chest pain. Pt has a hx of REEL OPERATOR-shunt (1997, ) for Chiari malformation. Pt says she has seen her usual neuro surgeon in [place] last March 2023 was told everything was fine in regards to shunt and her CT head scans. Pt is for full code confirmed with patient and her . Discharge Exam General: NAD, VS as above Resp: normal respiratory effort, lungs clear to auscultation CV: RRR, no murmur, Abd: soft and nontender Extremities: Moves all extremities, no edema Neuro: A&O x3, patient reports that she feels much better even from yesterday Discharge Plan Discharge Items Patient Disposition: Home - Self-Care Reason For Visit: ACUTE CONFUSION Discharge Diagnosis: urinary tract infection Activity: Resume your previous activity Non-emergency contact: Primary Care Provider Call non-emergency contact if: you have any medication questions and your symptoms worsen Follow-up/Referrals: Bart Nava DO [Primary Care Provider] - 07/07/24 10:45 am Diet: Regular Addtl Attending Provider Instructions: Ms. Davis, You were hospitalized after worsening confusion, this was found to be due to a urinary tract infection. You have improved with IV antibiotics and will continue on 3 days of oral Augmentin. There were some concerns that the confusion could have also been due to the medications that you take. However there is no evidence that you on intentionally took too many medications, it is very important that you are careful with the amount of sedating medications that you take. Many of the medications that you take for pain can cause confusion. You were not given your diclofenac while you were here and your pain was well-controlled without it. I would recommend stopping this medication to limit polypharmacy. There were concerns based on your shunt placement based on where you thought it was and what the imaging was showing. There was no evidence that that shunt was not working or blocked up. However, i would recommend that your follow up with your neurosurgeon and make sure that everyone is on the same page about where the shunt is supposed to end. Also, after the completion of your antibiotics, if you notice that you are having lapses in memory, I would recommend following up with your neurologist for cognitive testing to make sure there is not an underlying issue. Medications: Your medication list has been reviewed and reconciled upon discharge to ensure accuracy and continuity of care. An updated list of all your medications is included with your hospital discharge paperwork. Please review this list closely, and make note of any changes. Take your medications as instructed; do not skip a dose of your medicines. Make sure all of your doctors know every medicine you are taking (including [id number] medicines, vitamins, and supplements). Call your primary care provider before taking any new medicines (including over- the-counter medicines, vitamins, and supplements), because some of these may interact with your current medications, or may make your symptoms worse. Tell your primary care provider if you cannot afford your medications. Activity: You can do normal everyday activities as your body allows. Take rest breaks if you feel tired. Do not overexert. Stop activity if you have pain, shortness of breath or feel dizzy. Follow-up appointments: Make an appointment with your primary care physician within one week of dischar ge. A copy of this summary will be sent to them. Every time you see your primary care physician, or any other doctor, bring your medication list, and a list of questions. CONTACT YOUR PRIMARY CARE PROVIDER if you experience any of the following: Shortness of breath or difficulty breathing Fevers or chills Feeling tired with normal activity or experiencing dizziness or fainting Difficulty following your treatment plan, or difficulty taking medications CALL 911 OR GO TO THE EMERGENCY DEPARTMENT if you experience any of the followi ng: Severe abdominal pain or nausea/vomiting Severe chest pain, or chest pain that radiates (moves) to your jaw or arm Sudden, severe shortness of breath or difficulty breathing Thank you for allowing us to participate in your care. Pending Studies at Discharge: No Stand-Alone Forms: My [employer], Smoking Cessation Medications and DC Order Prescriptions: New amoxicillin-pot clavulanate 875-125 mg tablet 1 tab PO BID Qty: 6 0RF Rx Instructions: first dose AM 07/06 Continued alprazolam 0.5 mg Tablet 0.5 mg PO TID baclofen 10 mg Tablet 10 mg PO BID pantoprazole 40 mg Tablet,Delayed Release (Dr/Ec) 0 mg PO QPM Rx Instructions: Per pharmacy this hasn't been picked up since 10/2023. Unable to verify if pt still taking. Original Directions: 40mg by mouth daily montelukast 10 mg Tablet 10 mg PO QPM metoprolol succinate 25 mg Tablet Extended Release 24 Hr 25 mg PO HS rosuvastatin 5 mg Tablet 5 mg PO QPM duloxetine 60 mg Capsule,Delayed Release(Dr/Ec) 60 mg PO QAM potassium chloride 20 mEq Tablet Extended Release 20 meq PO BID rizatriptan 10 mg Tablet 0 mg PO UD PRN (Reason: migraines) Patient Comments: HAVEN'T NEEDED FOR A LONG TIME Rx Instructions: Unable to verify med w/ patient at this date/time. Original Directions: 10mg by mouth as directed for migraines cyanocobalamin (vitamin B-12) [Vitamin B-12] 500 mcg Tablet 500 mcg PO DAILY Patient Comments: AFTERNOON MOST OF THE TIME Rx Instructions: Unable to verify OTC meds at this date/time. magnesium 250 mg Tablet 250 mg PO UD PRN (Reason: muscle cramps) Patient Comments: HAVEN'T BEEN TAKING Rx Instructions: Unable to verify OTC meds at this date/time. albuterol sulfate [ProAir HFA] 90 mcg/actuation Hfa Aerosol Inhaler 1 inh INHALATION UD PRN (Reason: sob) pregabalin [Lyrica] 150 mg Capsule 150 mg PO HS cholecalciferol (vitamin D3) [Vitamin D3] 25 mcg (1,000 unit) Tablet 75 mcg PO QAM Rx Instructions: Unable to verify OTC meds at this date/time. verapamil 120 mg tablet extended release 0 mg PO DAILY Rx Instructions: Unable to verify med w/ patient at this date/time. Original Directions: 120mg by mouth daily triamterene-hydrochlorothiazid 37.5-25 mg capsule 0 cap PO DAILY Rx Instructions: Unable to verify med w/ patient at this date/time. Original Directions: 1 capsule by mouth daily calcitonin (salmon) 200 unit/actuation spray,non-aerosol 0 spray intranasal (ALT) DAILY Rx Instructions: Unable to verify med w/ patient at this date/time. Original Directions: 1 spray in alternating nostrils daily oxycodone-acetaminophen 7.5-325 mg Tablet 1 tab PO Q8H PRN (Reason: Pain) Arnuity Ellipta 100 mcg/actuation Blister With Device 1 inh INHALATION QAM famotidine 20 mg Tablet 20 mg PO HS turmeric 400 mg Capsule 400 mg PO DAILY Rx Instructions: Unable to verify OTC meds at this date/time. Held ferrous sulfate 325 mg (65 mg iron) Tablet 325 mg PO BID Hold Instructions: Resume on 07/19/24. discuss with PCP, not anemic during stay Discontinued diclofenac sodium 75 mg Tablet,Delayed Release (Dr/Ec) 75 mg PO BID Discharge Orders: Discharge Order (Routine); Ordered 07/05/24 Ordered By: Malia Carlos Admission Data Admit Date/Time: 07/03/24 23:01 Attending Provider: Dorian Boogie Admit Provider: José Luis Lorenz Primary Care Provider: Bart Nava Other Providers: Fahad Balderas Other Interventions: Discharge Summary Assessment (RN) Last Done: 07/05/24 15:06 Hospital Stay Data Consultations 07/03/24 22:27 ED Decision to Admit Stat Diagnostic Imagining Performed Chest X-Ray 07/03/24 15:08 XR chest 1V portable CLINICAL HISTORY: Weakness TECHNIQUE: Single frontal radiograph of the chest was obtained. Comparison: Comparison is made to chest radiograph 03/11/2022 FINDINGS: No lines and tubes are seen. Aortic valvular prosthesis is seen. The lungs are clear. No evidence of pleural effusion or pneumothorax. IMPRESSION: No acute chest disease. ACT 112: Negative or not required by law. Electronically signed by: Giorgi Sykes M.D. 07/03/2024 4:[address] 07/03/24 16:25 CT angio neck with con, CT head/brain wo con, CT angio head w con CLINICAL HISTORY: confusion, ?movement disorder vs weakness of hands TECHNIQUE: Contiguous axial CT images of the head were acquired from the base of the skull to the vertex without intravenous contrast administration. CT angiography of the head and neck was performed following intravenous administration of iodinated contrast. Coronal and sagittal MIPS were obtained from the axial data set and were submitted for review. Automated dose lowering techniques and/or adjustment according to patient size were utilized for this examination. All measurements were calculated based on NASCET criteria. CT DOSE: 1039.95 mGy.cm Comparison: None available at the time of this dictation. FINDINGS: CT head: There is no acute intracranial hemorrhage or evidence of acute territorial infarction. No shift of the midline structures, mass effect, or extra-axial abnormalities are shown. Right REEL OPERATOR shunt terminates in the right lateral ventricle. Right thyroid nodule is seen. Bone overgrowth is noted in the medial aspect of mandible. CTA Neck: A 3 vessel aortic arch is shown. There is no significant atherosclero tic plaque in the aortic arch or the origins of the innominate, left common carotid, and left subclavian arteries. The common carotid, external carotid, cervical segments of the internal carotid arteries, and the cervical segments of the vertebral arteries are patent without hemodynamically significant stenosis. The left vertebral artery is dominant. CTA Head: The anterior and posterior cerebral circulations are patent. No hemodynamically significant stenosis, aneurysm, dissection, or arteriovenous malformation is shown. IMPRESSION: 1. No acute intracranial hemorrhage, evidence of acute territorial infarction, or other acute intracranial disease process. 2. No occlusion, hemodynamically significant stenosis, or dissection in the major cervical arteries. 3. No occlusion, hemodynamically significant stenosis, aneurysm, dissection, or arteriovenous malformation in the major intracranial arteries. Assessment of stenosis of the internal carotid arteries is based on NASCET crite yunior. ACT 112: Negative or not required by law. Electronically signed by: Giorgi Sykes M.D. 07/03/2024 6:09 PM Head CTA 07/03/24 16:25 CT angio neck with con, CT head/brain wo con, CT angio head w con CLINICAL HISTORY: confusion, ?movement disorder vs weakness of hands TECHNIQUE: Contiguous axial CT images of the head were acquired from the base of the skull to the vertex without intravenous contrast administration. CT angiography of the head and neck was performed following intravenous administration of iodinated contrast. Coronal and sagittal MIPS were obtained from the axial data set and were submitted for review. Automated dose lowering techniques and/or adjustment according to patient size were utilized for this examination. All measurements were calculated based on NASCET criteria. CT DOSE: 1039.95 mGy.cm Comparison: None available at the time of this dictation. FINDINGS: CT head: There is no acute intracranial hemorrhage or evidence of acute territorial infarction. No shift of the midline structures, mass effect, or extra-axial abnormalities are shown. Right REEL OPERATOR shunt terminates in the right lateral ventricle. Right thyroid nodule is seen. Bone overgrowth is noted in the medial aspect of mandible. CTA Neck: A 3 vessel aortic arch is shown. There is no significant atherosclerotic plaque in the aortic arch or the origins of the innominate, left common carotid, and left subclavian arteries. The common carotid, external carotid, cervical segments of the internal carotid arteries, and the cervical segments of the vertebral arteries are patent without hemodynamically significant stenosis. The left vertebral artery is dominant. CTA Head: The anterior and posterior cerebral circulations are patent. No hemodynamically significant stenosis, aneurysm, dissection, or arteriovenous malformation is shown. IMPRESSION: 1. No acute intracranial hemorrhage, evidence of acute territorial infarction, or other acute intracranial disease process. 2. No occlusion, hemodynamically significant stenosis, or dissection in the major cervical arteries. 3. No occlusion, hemodynamically significant stenosis, aneurysm, dissection, or arteriovenous malformation in the major intracranial arteries. Assessment of stenosis of the internal carotid arteries is based on NASCET criteria. ACT 112: Negative or not required by law. Electronically signed by: Giorgi Sykes M.D. 07/03/2024 6:09 PM Neck CTA 07/03/24 16:25 CT angio neck with con, CT head/brain wo con, CT angio head w con CLINICAL HISTORY: confusion, ?movement disorder vs weakness of hands TECHNIQUE: Contiguous axial CT images of the head were acquired from the base of the skull to the vertex without intravenous contrast administration. CT angiography of the head and neck was performed following intravenous administration of iodinated contrast. Coronal and sagittal MIPS were obtained from the axial data set and were submitted for review. Automated dose lowering techniques and/or adjustment according to patient size were utilized for this examination. All measurements were calculated based on NASCET criteria. CT DOSE: 1039.95 mGy.cm Comparison: None available at the time of this dictation. FINDINGS: CT head: There is no acute intracranial hemorrhage or evidence of acute territorial infarction. No shift of the midline structures, mass effect, or extra-axial abnormalities are shown. Right REEL OPERATOR shunt terminates in the right lateral ventricle. Right thyroid nodule is seen. Bone overgrowth is noted in the medial aspect of mandible. CTA Neck: A 3 vessel aortic arch is shown. There is no significant atherosclerotic plaque in the aortic arch or the origins of the innominate, left common carotid, and left subclavian arteries. The common carotid, external carotid, cervical segments of the internal carotid arteries, and the cervical segments of the vertebral arteries are patent without hemodynamically significant stenosis. The left vertebral artery is dominant. CTA Head: The anterior and posterior cerebral circulations are patent. No hemodynamically significant stenosis, aneurysm, dissection, or arteriovenous malformation is shown. IMPRESSION: 1. No acute intracranial hemorrhage, evidence of acute territorial infarction, or other acute intracranial disease process. 2. No occlusion, hemodynamically significant stenosis, or dissection in the major cervical arteries. 3. No occlusion, hemodynamically significant stenosis, aneurysm, dissection, or arteriovenous malformation in the major intracranial arteries. Assessment of stenosis of the internal carotid arteries is based on NASCET criteria. ACT 112: Negative or not required by law. Electronically signed by: Giorgi Sykes M.D. 07/03/2024 6:09 PM Abdomen X-Ray 07/03/24 18:21 XR skull <4V, XR cervical spine 2 or 3V, XR chest 2V PA/lateral, XR abdomen min 2V CLINICAL HISTORY: Visualize Shunt TECHNIQUE: 2 views of the skull were obtained. 2 views of the cervical spine, chest, and abdomen were obtained. Comparison: Comparison is made to CTA head and neck 07/03/2024 FINDINGS: The shunt catheter is noted to terminate at the level of the calvarium. No intact catheter is seen in the level of the cervical spine, chest, or abdomen. No acute fractures are identified. The sinuses are clear. Calcific densities in the anterior calvarium may represent hyperostosis frontalis. There are no soft tissue abnormalities. Dental implants and postcraniotomy changes are seen. Posterior thoracolumbar spinal fixation hardware is seen. Cardiomegaly is noted. The lungs are clear. Degenerative changes are bilateral hip joints. IMPRESSION: The shunt catheter is not seen past the level of the calvarium. Correlation for history of distal catheter removal is recommended. Of note, the patient does not have hydrocephalus on CTA head and neck performed today. ACT 112: Negative or not required by law. Electronically signed by: Giorgi Sykes M.D. 07/03/2024 7:48 PM Cervical Spine X-Ray 07/03/24 18:21 XR skull <4V, XR cervical spine 2 or 3V, XR chest 2V PA/lateral, XR abdomen min 2V CLINICAL HISTORY: Visualize Shunt TECHNIQUE: 2 views of the skull were obtained. 2 views of the cervical spine, chest, and abdomen were obtained. Comparison: Comparison is made to CTA head and neck 07/03/2024 FINDINGS: The shunt catheter is noted to terminate at the level of the calvarium. No intact catheter is seen in the level of the cervical spine, chest, or abdomen. No acute fractures are identified. The sinuses are clear. Calcific densities in the anterior calvarium may represent hyperostosis frontalis. There are no soft tissue abnormalities. Dental implants and postcraniotomy changes are seen. Posterior thoracolumbar spinal fixation hardware is seen. Cardiomegaly is noted. The lungs are clear. Degenerative changes are bilateral hip joints. IMPRESSION: The shunt catheter is not seen past the level of the calvarium. Correlation for history of distal catheter removal is recommended. Of note, the patient does not have hydrocephalus on CTA head and neck performed today. ACT 112: Negative or not required by law. Electronically signed by: Giorgi Sykes M.D. 07/03/2024 7:48 PM Chest X-Ray 07/03/24 18:21 XR skull <4V, XR cervical spine 2 or 3V, XR chest 2V PA/lateral, XR abdomen min 2V CLINICAL HISTORY: Visualize Shunt TECHNIQUE: 2 views of the skull were obtained. 2 views of the cervical spine, chest, and abdomen were obtained. Comparison: Comparison is made to CTA head and neck 07/03/2024 FINDINGS: The shunt catheter is noted to terminate at the level of the calvarium. No intact catheter is seen in the level of the cervical spine, chest, or abdomen. No acute fractures are identified. The sinuses are clear. Calcific densities in the anterior calvarium may represent hyperostosis frontalis. There are no soft tissue abnormalities. Dental implants and postcraniotomy changes are seen. Posterior thoracolumbar spinal fixation hardware is seen. Cardiomegaly is noted. The lungs are clear. Degenerative changes are bilateral hip joints. IMPRESSION: The shunt catheter is not seen past the level of the calvarium. Correlation for history of distal catheter removal is recommended. Of note, the patient does not have hydrocephalus on CTA head and neck performed today. ACT 112: Negative or not required by law. Electronically signed by: Giorgi Sykes M.D. 07/03/2024 7:48 PM Skull X-Ray 07/03/24 18:21 XR skull <4V, XR cervical spine 2 or 3V, XR chest 2V PA/lateral, XR abdomen min 2V CLINICAL HISTORY: Visualize Shunt TECHNIQUE: 2 views of the skull were obtained. 2 views of the cervical spine, chest, and abdomen were obtained. Comparison: Comparison is made to CTA head and neck 07/03/2024 FINDINGS: The shunt catheter is noted to terminate at the level of the calvarium. No intact catheter is seen in the level of the cervical spine, chest, or abdomen. No acute fractures are identified. The sinuses are clear. Calcific densities in the anterior calvarium may represent hyperostosis frontalis. There are no soft tissue abnormalities. Dental implants and postcraniotomy changes are seen. Posterior thoracolumbar spinal fixation hardware is seen. Cardiomegaly is noted. The lungs are clear. Degenerative changes are bilateral hip joints. IMPRESSION: The shunt catheter is not seen past the level of the calvarium. Correlation for history of distal catheter removal is recommended. Of note, the patient does not have hydrocephalus on CTA head and neck performed today. ACT 112: Negative or not required by law. Electronically signed by: Giorgi Sykes M.D. 07/03/2024 7:48 PM Pending Results Patient Have Any Pending Studies at Discharge: No Discharge Instructions Given to Patient (Per Discharging Provider) Ms. Davis, You were hospitalized after worsening confusion, this was found to be due to a urinary tract infection. You have improved with IV antibiotics and will continue on 3 days of oral Augmentin. There were some concerns that the confusion could have also been due to the medications that you take. However there is no evidence that you on intentionally took too many medications, it is very important that you are careful with the amount of sedating medications that you take. Many of the medications that you take for pain can cause confusion. You were not given your diclofenac while you were here and your pain was well-controlled without it. I would recommend stopping this medication to limit polypharmacy. There were concerns based on your shunt placement based on where you thought it was and what the imaging was showing. There was no evidence that that shunt was not working or blocked up. However, i would recommend that your follow up with your neurosurgeon and make sure that everyone is on the same page about where the shunt is supposed to end. Also, after the completion of your antibiotics, if you notice that you are having lapses in memory, I would recommend following up with your neurologist for cognitive testing to make sure there is not an underlying issue. Medications: Your medication list has been reviewed and reconciled upon discharge to ensure accuracy and continuity of care. An updated list of all your medications is included with your hospital discharge paperwork. Please review this list closely, and make note of any changes. Take your medications as instructed; do not skip a dose of your medicines. Make sure all of your doctors know every medicine you are taking (including [id number]-tlyvttr medicines, vitamins, and supplements). Call your primary care provider before taking any new medicines (including over- the-counter medicines, vitamins, and supplements), because some of these may interact with your current medications, or may make your symptoms worse. Tell your primary care provider if you cannot afford your medications. Activity: You can do normal everyday activities as your body allows. Take rest breaks if you feel tired. Do not overexert. Stop activity if you have pain, shortness of breath or feel dizzy. Follow-up appointments: Make an appointment with your primary care physician within one week of disch arge. A copy of this summary will be sent to them. Every time you see your primary care physician, or any other doctor, bring your medication list, and a list of questions. CONTACT YOUR PRIMARY CARE PROVIDER if you experience any of the following: Shortness of breath or difficulty breathing Fevers or chills Feeling tired with normal activity or experiencing dizziness or fainting Difficulty following your treatment plan, or difficulty taking medications CALL 911 OR GO TO THE EMERGENCY DEPARTMENT if you experience any of the follo wing: Severe abdominal pain or nausea/vomiting Severe chest pain, or chest pain that radiates (moves) to your jaw or arm Sudden, severe shortness of breath or difficulty breathing Thank you for allowing us to participate in your care. Total Time Total Time Spent Total Time Spent (In Minutes): Time spent day of discharge 35 minutes including direct patient care, medication reconciliation, documentation, review of labs and images, and coordination of care. 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
== END 2024-07-05 16:23 | disposition home or self-care (01) | DRG 871 ==
LOC: ED 14:53 → SUATTDRO 23:01 → 3W 23:01

== ENCOUNTER 2024-09-11 10:43 | Inpatient (IN) ==
--- NOTE | 2024-06-27 10:13 | PAT Medication Instructions ---
Medication Instructions Date of Service June 27, 2024 Home Medications albuterol sulfate 90 mcg/actuation aerosol inhaler (ProAir HFA) 1 inh inhalation UD PRN alprazolam 0.5 mg tablet 0.5 mg PO TID baclofen 10 mg tablet 10 mg PO BID cholecalciferol (vitamin D3) 25 mcg (1,000 unit) tablet (Vitamin D3) 75 mcg PO QAM cyanocobalamin (vitamin B-12) 500 mcg tablet (Vitamin B-12) 500 mcg PO DAILY duloxetine 60 mg capsule,delayed release 60 mg PO QAM magnesium 250 mg tablet 250 mg PO UD PRN metoprolol succinate 25 mg tablet,extended release 24 hr 25 mg PO HS montelukast 10 mg tablet 10 mg PO QPM pantoprazole 40 mg tablet,delayed release 40 mg PO QPM potassium chloride 20 mEq tablet,extended release 20 meq PO BID pregabalin 150 mg capsule (Lyrica) 150 mg PO HS rizatriptan 10 mg tablet 10 mg PO UD PRN rosuvastatin 5 mg tablet 5 mg PO QPM diclofenac sodium 75 mg tablet,delayed release 75 mg PO BID famotidine 20 mg tablet 20 mg PO HS ferrous sulfate 325 mg (65 mg iron) tablet 325 mg PO BID fluticasone furoate 100 mcg/actuation blister powder for inhalation (Arnuity Ellipta) 1 inh inhalation QAM oxycodone-acetaminophen 7.5 mg-325 mg tablet 1 tab PO TID turmeric 400 mg capsule 400 mg PO DAILY Continue as directed albuterol sulfate 90 mcg/actuation aerosol inhaler (ProAir HFA) 1 inh inhalation UD PRN(use if needed; please bring with you to hospital day of surgery if possible) rizatriptan 10 mg tablet 10 mg PO UD PRN(if needed) ASK your surgeon for instructions diclofenac sodium 75 mg tablet,delayed release 75 mg PO BID STOP taking 2 weeks before surgery (or as soon as possible if surgery is within 2 weeks) turmeric 400 mg capsule 400 mg PO DAILY DO NOT take the morning of surgery cholecalciferol (vitamin D3) 25 mcg (1,000 unit) tablet (Vitamin D3) 75 mcg PO QAM cyanocobalamin (vitamin B-12) 500 mcg tablet (Vitamin B-12) 500 mcg PO DAILY magnesium 250 mg tablet 250 mg PO UD PRN potassium chloride 20 mEq tablet,extended release 20 meq PO BID ferrous sulfate 325 mg (65 mg iron) tablet 325 mg PO BID Take morning of surgery With a small sip of water, OTHERWISE NOTHING TO EAT OR DRINK AFTER MIDNIGHT: alprazolam 0.5 mg tablet 0.5 mg PO TID baclofen 10 mg tablet 10 mg PO BID duloxetine 60 mg capsule,delayed release 60 mg PO QAM fluticasone furoate 100 mcg/actuation blister powder for inhalation (Arnuity Ellipta) 1 inh inhalation QAM oxycodone-acetaminophen 7.5 mg-325 mg tablet 1 tab PO TID Take evening before surgery alprazolam 0.5 mg tablet 0.5 mg PO TID baclofen 10 mg tablet 10 mg PO BID metoprolol succinate 25 mg tablet,extended release 24 hr 25 mg PO HS montelukast 10 mg tablet 10 mg PO QPM pantoprazole 40 mg tablet,delayed release 40 mg PO QPM potassium chloride 20 mEq tablet,extended release 20 meq PO BID pregabalin 150 mg capsule (Lyrica) 150 mg PO HS rosuvastatin 5 mg tablet 5 mg PO QPM famotidine 20 mg tablet 20 mg PO HS ferrous sulfate 325 mg (65 mg iron) tablet 325 mg PO BID oxycodone-acetaminophen 7.5 mg-325 mg tablet 1 tab PO TID Other Notes If you have any questions please call us at [phone] or [phone] or or [phone]
--- NOTE | 2024-07-03 14:38 | Anesthesiology Consultation ---
Date of Service July 03, 2024 Assessment & Plan (1) Encounter for pre-operative examination: - Awaiting review of preop testing (labs + UA, CXR). - CX EKG paper - ? PATROL MOTHER shunt, ? PCP clearance - IV LR - Infectious disease screening: Per assessment on 07/03/24: No known recent infectious disease contacts or current infectious disease symptoms. - S/P L2-3, L5-S1 decompression fusion, L3-5 hardware removal (11/25/2020): Grade view 1 with elective glidescope #3, easy, atraumatic at [facility]. Per post-op anesthesia progress note, "Pt received 300 mcg of fentanyl intraop. At the end of the case, pt apneic. After being given narcan, the patient began to SV and was responding to voice. Sent to PACU and did well in recovery. OK to discharge to floor but continuos pulse oximetry monitoring order placed." - S/P T10-L2 decompression/fusion (04/01/2022): Grade 1 view, "Elective" Glidescope#3, ETT 7.0, atraumatic. No issues noted per anesthesia post-op progress note. - Cardiology visit (06/19/24): "PSVT and heart palpitations are controlled on beta-corrie and calcium channel corrie. Her blood pressure is controlled.. The Arnold-Chiari malformation is followed in [place] as she has a shunt that must be carefully monitored. In terms of the low back pain and the need for surgery for this, she is felt to be a low to moderate risk for this low risk procedure. Her obstructive sleep apnea will have to be carefully monitored in the perioperative period." Chart Review Chart Review: Patient seen in Pre Admission Testing Teaching & Discussion Pre-Anesthesia Teaching/Discussion Notes: Instructed NPO after midnight before surgery,except medications with 15 cc of water. Medication instructions provided according to the PAT guidelines. History Surgery Operation Date: 07/17/24 07:45 Proposed Procedures p Spinal Cord Stimulator Trial - Stiven Cárdenas DO Height/Weight Height: 5 ft 7 in Weight: 117.934 kg Allergies Allergy/AdvReac Type Severity Reaction Status Date / Time adhesive Allergy Mild Blisters Verified 06/30/24 12:34 topiramate [From Topamax] Allergy Mild Chest Pain Verified 06/21/24 11:50 metoclopramide [From Reglan] AdvReac Mild Skin Verified 06/30/24 12:34 crawling Medications Home Medications Medication Instructions Recorded Confirmed Last Taken albuterol sulfate 90 mcg/actuation 1 inh inhalation UD PRN sob 10/29/20 06/21/24 04/01/22 08:00 aerosol inhaler (ProAir HFA) alprazolam 0.5 mg tablet 0.5 mg PO TID 10/29/20 06/21/24 04/01/22 06:30 baclofen 10 mg tablet 10 mg PO BID 10/29/20 06/21/24 03/31/22 09:00 cholecalciferol (vitamin D3) 25 75 mcg PO QAM 10/29/20 06/21/24 03/18/22 mcg (1,000 unit) tablet (Vitamin D3) cyanocobalamin (vitamin B-12) 500 500 mcg PO DAILY 10/29/20 06/21/24 03/18/22 mcg tablet (Vitamin B-12) duloxetine 60 mg capsule,delayed 60 mg PO QAM 10/29/20 06/21/24 04/01/22 06:30 release magnesium 250 mg tablet 250 mg PO UD PRN muscle cramps 10/29/20 06/21/24 11/24/20 20:00 metoprolol succinate 25 mg 25 mg PO HS 10/29/20 06/21/24 03/31/22 22:00 tablet,extended release 24 hr montelukast 10 mg tablet 10 mg PO QPM 10/29/20 06/21/24 03/31/22 13:00 pantoprazole 40 mg tablet,delayed 40 mg PO QPM 10/29/20 06/21/24 03/31/22 13:00 release potassium chloride 20 mEq 20 meq PO BID 10/29/20 06/21/24 03/31/22 22:00 tablet,extended release pregabalin 150 mg capsule (Lyrica) 150 mg PO HS 10/29/20 06/21/24 04/01/22 06:30 rizatriptan 10 mg tablet 10 mg PO UD PRN migraines 10/29/20 06/21/24 04/01/22 06:30 rosuvastatin 5 mg tablet 5 mg PO QPM 10/29/20 06/21/24 03/31/22 13:00 diclofenac sodium 75 mg 75 mg PO BID 03/11/22 06/21/24 Unknown tablet,delayed release famotidine 20 mg tablet 20 mg PO HS 06/21/24 06/21/24 Unknown ferrous sulfate 325 mg (65 mg 325 mg PO BID 06/21/24 06/21/24 Unknown iron) tablet fluticasone furoate 100 1 inh inhalation QAM 06/21/24 06/21/24 Unknown mcg/actuation blister powder for inhalation (Arnuity Ellipta) oxycodone-acetaminophen 7.5 mg-325 1 tab PO TID 06/21/24 06/21/24 Unknown mg tablet turmeric 400 mg capsule 400 mg PO DAILY 06/21/24 06/21/24 Unknown Past Medical History Medical History (Updated 06/30/24 @ 12:40 by Monique Beth) Anxiety Asthma Chronic back pain Degenerative disc disease Depression GERD (gastroesophageal reflux disease) controlled Hemangioma of liver x2 - monitoring Hiatal hernia History of anemia s/p back surgery 11/2020 No known hx blood transfusion History of Chiari malformation s/p craniotomy/repair x2 History of COVID-19 x3 Most recent 09/2023 > residual sinus issues since History of hypokalemia Hydrocephalus PATROL MOTHER Shunt (~1997) No recent issues, monitored by PCP Hyperlipidemia Hypertension Kidney stones Hx Meniere's disease Morbid obesity Neurogenic claudication due to lumbar spinal stenosis Osteoarthritis Sleep apnea CPAP (compliant) SVT (supraventricular tachycardia) Hx Follows with cardio/Dr. Korey Galan Past Family History Family History Other Family history of colon cancer in mother Family history of diabetes mellitus in father No family history of adverse response to anesthesia Past Surgical History Surgical History (Updated 06/30/24 @ 12:40 by Monique Beth) H/O craniotomy x2 to repair chiari malformation with a revision from a bovine patch H/O laminectomy C1-C2 - full rom H/O vaginal hysterectomy History of cardiac cath 20+ years ago -- no stents. History of cataract surgery bilateral History of cholecystectomy History of colonoscopy History of cystocele cystocele repair History of esophagogastroduodenoscopy (EGD) History of left knee replacement History of repair of rectocele History of revision of total replacement of right knee joint History of right knee joint replacement History of spinal fusion 04/01/22 @ [facility] Dr. Cárdenas T10-L2 History of thyroidectomy, subtotal thyroid nodule. no medication. History of tonsillectomy Nausea and vomiting after administration of anesthetic agent S/P lumbar fusion L2-3, L5-S1 decompression fusion, L3-5 hardware removal (11/25/2020): Grade view 1 with elective glidescope #3, easy, atraumatic at [facility]. Per post-op anesthesia progress note, " Pt received 300 mcg of fentanyl intraop. At the end of the case, pt apneic. After being given narcan, the patient began to SV and was responding to voice. Sent to PACU and did well in recovery. OK to discharge to floor but continuos pulse oximetry monitoring order placed." T10-L2 decompression/fusion (04/01/2022): Grade 1 view, "Elective" Glidescope#3, ETT 7.0, atraumatic. No issues noted per anesthesia post-op progress note. S/P PATROL MOTHER shunt [place], [place] (1997) Social History Smoking Status: Never smoker Do You Dip or Chew Tobacco: No Hx Alcohol Use: No Hx Substance Use: No substance use type: does not use Testing Electrocardiogram Date: 06/19/24 "normal sinus rhythm with a normal VT interval QRS duration and axis and is normal" per cardiology office visit from same day. 59bpm. Echocardiogram Date: 01/14/17 EF 55%. No RWMA. No significant valvular disease. Stress Test Date: 08/22/21 The SPECT perfusion images are considered to be within normal limits. No significant ischemia/infarction. Post-stress EF 72%.
--- NOTE | 2024-07-03 15:07 | Communication Note ---
Patient presented to [facility] PAT scheduled visit 07/03/24 for upcoming Spinal Cord Stimulator Trial scheduled 07/17/[address] Cárdenas. Prior to PAT visit, patient noted new complaints of altered mental status/hand tremor since this morning. Guest with patient additionally notes that patient has been having staring spells and not responsive when spoken to during these episodes. He feels her last known-well time was last night. Patient agreeable to ER evaluation- station operator notified and patient transported to ER without issue. Events report and [facility] note done detailing this as well. Surgeon's office made aware.
--- NOTE | 2024-07-10 11:55 | PAT Medication Instructions ---
Medication Instructions Date of Service July 10, 2024 Home Medications Medication Instructions Recorded amoxicillin 875 mg-potassium 1 tab PO BID #6 tabs 07/05/24 clavulanate 125 mg tablet albuterol sulfate 90 mcg/actuation aerosol inhaler (ProAir HFA) 1 inh inhalation UD PRN alprazolam 0.5 mg tablet 0.5 mg PO TID baclofen 10 mg tablet 10 mg PO BID cholecalciferol (vitamin D3) 25 mcg (1,000 unit) tablet (Vitamin D3) 75 mcg PO QAM cyanocobalamin (vitamin B-12) 500 mcg tablet (Vitamin B-12) 500 mcg PO DAILY duloxetine 60 mg capsule,delayed release 60 mg PO QAM magnesium 250 mg tablet 250 mg PO UD PRN metoprolol succinate 25 mg tablet,extended release 24 hr 25 mg PO HS montelukast 10 mg tablet 10 mg PO QPM pantoprazole 40 mg tablet,delayed release 0 mg PO QPM potassium chloride 20 mEq tablet,extended release 20 meq PO BID pregabalin 150 mg capsule (Lyrica) 150 mg PO HS rizatriptan 10 mg tablet 0 mg PO UD PRN rosuvastatin 5 mg tablet 5 mg PO QPM famotidine 20 mg tablet 20 mg PO HS ferrous sulfate 325 mg (65 mg iron) tablet 325 mg PO BID fluticasone furoate 100 mcg/actuation blister powder for inhalation (Arnuity Ellipta) 1 inh inhalation QAM oxycodone-acetaminophen 7.5 mg-325 mg tablet 1 tab PO Q8H PRN turmeric 400 mg capsule 400 mg PO DAILY calcitonin (salmon) 200 unit/actuation nasal spray 0 spray intranasal (ALT) DAILY triamterene 37.5 mg-hydrochlorothiazide 25 mg capsule 0 cap PO DAILY verapamil 120 mg tablet,extended release 0 mg PO DAILY amoxicillin 875 mg-potassium clavulanate 125 mg tablet 1 tab PO BID Continue as directed albuterol sulfate 90 mcg/actuation aerosol inhaler (ProAir HFA) 1 inh inhalation UD PRN(use if needed; please bring with you to hospital day of surgery if possible) magnesium 250 mg tablet 250 mg PO UD PRN(if needed) rizatriptan 10 mg tablet 0 mg PO UD PRN(if needed) calcitonin (salmon) 200 unit/actuation nasal spray 0 spray intranasal (ALT) DAILY verapamil 120 mg tablet,extended release 0 mg PO DAILY STOP taking 2 weeks before surgery (or as soon as possible if surgery is within 2 weeks) turmeric 400 mg capsule 400 mg PO DAILY DO NOT take the morning of surgery cholecalciferol (vitamin D3) 25 mcg (1,000 unit) tablet (Vitamin D3) 75 mcg PO QAM cyanocobalamin (vitamin B-12) 500 mcg tablet (Vitamin B-12) 500 mcg PO DAILY potassium chloride 20 mEq tablet,extended release 20 meq PO BID ferrous sulfate 325 mg (65 mg iron) tablet 325 mg PO BID triamterene 37.5 mg-hydrochlorothiazide 25 mg capsule 0 cap PO DAILY Take morning of surgery With a small sip of water, OTHERWISE NOTHING TO EAT OR DRINK AFTER MIDNIGHT: alprazolam 0.5 mg tablet 0.5 mg PO TID baclofen 10 mg tablet 10 mg PO BID duloxetine 60 mg capsule,delayed release 60 mg PO QAM fluticasone furoate 100 mcg/actuation blister powder for inhalation (Arnuity Ellipta) 1 inh inhalation QAM oxycodone-acetaminophen 7.5 mg-325 mg tablet 1 tab PO Q8H PRN(if needed) amoxicillin 875 mg-potassium clavulanate 125 mg tablet 1 tab PO BID Take evening before surgery alprazolam 0.5 mg tablet 0.5 mg PO TID baclofen 10 mg tablet 10 mg PO BID metoprolol succinate 25 mg tablet,extended release 24 hr 25 mg PO HS montelukast 10 mg tablet 10 mg PO QPM pantoprazole 40 mg tablet,delayed release 0 mg PO QPM potassium chloride 20 mEq tablet,extended release 20 meq PO BID pregabalin 150 mg capsule (Lyrica) 150 mg PO HS rosuvastatin 5 mg tablet 5 mg PO QPM famotidine 20 mg tablet 20 mg PO HS ferrous sulfate 325 mg (65 mg iron) tablet 325 mg PO BID oxycodone-acetaminophen 7.5 mg-325 mg tablet 1 tab PO Q8H PRN(if needed) amoxicillin 875 mg-potassium clavulanate 125 mg tablet 1 tab PO BID Other Notes If you have any questions please call us at [phone] or [phone] or [phone] or [phone]
--- NOTE | 2024-07-10 14:34 | Anesthesiology Consultation ---
Date of Service July 10, 2024 Assessment & Plan (1) Encounter for pre-operative examination: - awaiting medical-Dr. Nava and neurosurgery-Dr. Kenney [facility] clearances, optimization forms to be faxed. - awaiting surgeon's office response if surgeon would want to proceed with surge ry even if cleared by PCP and neurosurgery given recent hospitalization for sepsis. - Patient and her note chronic memory changes, no worsening since hospital discharge. Case discussed in detail with Dr. Venegas while patient was having testing done in clinic. He advised patient will need updated medical and neurosurgery clearances. Patient and her were advised that medical clearance will be needed prior to surgery. Ana Luisa with surgeon's office made aware of recent hospitalization and needed medical and neurosurgery clearances. - discharge summary 07/05/24 [facility]: "...Sepsis due to urinary tract infection: Metabolic encephalopathy. Acute confusion for one day, unwell 3-4 days, urgency, frequency, dysuria and nausea. Initially presented to hospital for PAT...UA consistent with infection, UC gardnerella like bacilli and gamma strep not Enterococcus- received ceftriaxone in the hospital with great improvement, will continue Augmentin at discharge. CXR no acute process. CT head/CTA head and neck - no acute findings. Received sepsis bolus fluids, tolerating diet, and on diuretic at baseline, no additional fluids indicated unclear if patient has been having smaller memory deficits prior to this infection. I did encourage her to follow-up with neurology if she notices continued memory deficits after completion of antibiotics as there may be some underlying cognitive disorder ...S/P RECLAIMER shunt...usual neuro surgeon in [place] last March 2023 was told everything was fine in regards to shunt and her CT head scans- knows that her shunt was pushed back but unsure to where. No neck stiffness, no photophobia, no focal neurology. repeat CT head scans today - NO evidence of hydrocephalus / shunt block/acute stroke/IC bleeds. Acute confusion likely due to UTI...recommend patient follow-up with her neurosurgeon to make sure her shunt is in the place he expects it to be..." Chart Review Chart Review: Pending: Refer to Additional Notes / Consult section and Patient seen in Pre Admission Testing Teaching & Discussion Pre-Anesthesia Teaching/Discussion Notes: Instructed NPO after midnight before surgery, except medications with 15 cc of water. Medication instructions provided according to the PAT guidelines. History Surgery Operation Date: 07/17/24 10:05 Proposed Procedures p Spinal Cord Stimulator Trial - Stiven Cárdenas DO Height/Weight Height: 5 ft 7 in Weight: 120.2 kg Allergies Allergy/AdvReac Type Severity Reaction Status Date / Time adhesive Allergy Mild Blisters Verified 07/04/24 11:40 topiramate [From Topamax] Allergy Mild Chest Pain Verified 07/04/24 11:40 metoclopramide [From Reglan] AdvReac Mild Skin Verified 07/04/24 11:40 crawling Medications Home Medications Medication Instructions Recorded Confirmed Last Taken albuterol sulfate 90 mcg/actuation 1 inh inhalation UD PRN sob 10/29/20 07/04/24 04/01/22 08:00 aerosol inhaler (ProAir HFA) alprazolam 0.5 mg tablet 0.5 mg PO TID PRN Anxiety 10/29/20 07/04/24 04/01/22 06:30 baclofen 10 mg tablet 20 mg PO BID 10/29/20 07/10/24 03/31/22 09:00 cholecalciferol (vitamin D3) 25 3,000 unit PO QAM 10/29/20 07/10/24 03/18/22 mcg (1,000 unit) tablet (Vitamin D3) cyanocobalamin (vitamin B-12) 500 500 mcg PO DAILY 10/29/20 07/04/24 03/18/22 mcg tablet (Vitamin B-12) duloxetine 60 mg capsule,delayed 60 mg PO QAM 10/29/20 07/04/24 04/01/22 06:30 release magnesium 250 mg tablet 250 mg PO UD PRN muscle cramps 10/29/20 07/04/24 11/24/20 20:00 metoprolol succinate 25 mg 25 mg PO HS 10/29/20 07/04/24 03/31/22 22:00 tablet,extended release 24 hr montelukast 10 mg tablet 10 mg PO QPM 10/29/20 07/04/24 03/31/22 13:00 pantoprazole 40 mg tablet,delayed 0 mg PO QPM 10/29/20 07/04/24 03/31/22 13:00 release potassium chloride 20 mEq 20 meq PO BID 10/29/20 07/04/24 03/31/22 22:00 tablet,extended release pregabalin 150 mg capsule (Lyrica) 150 mg PO HS 10/29/20 07/04/24 04/01/22 06:30 rizatriptan 10 mg tablet 0 mg PO UD PRN migraines 10/29/20 07/04/24 04/01/22 06:30 rosuvastatin 5 mg tablet 5 mg PO QPM 10/29/20 07/04/24 03/31/22 13:00 famotidine 20 mg tablet 20 mg PO HS 06/21/24 07/04/24 Unknown ferrous sulfate 325 mg (65 mg 325 mg PO BID 06/21/24 07/04/24 Unknown iron) tablet fluticasone furoate 100 1 inh inhalation QAM 06/21/24 07/04/24 Unknown mcg/actuation blister powder for inhalation (Arnuity Ellipta) oxycodone-acetaminophen 7.5 mg-325 1 tab PO Q8H PRN Pain 06/21/24 07/04/24 Unknown mg tablet turmeric 400 mg capsule 400 mg PO DAILY 06/21/24 07/04/24 Unknown calcitonin (salmon) 200 0 spray intranasal (ALT) DAILY 07/04/24 07/04/24 Unknown unit/actuation nasal spray triamterene 37.5 0 cap PO DAILY 07/04/24 07/04/24 Unknown mg-hydrochlorothiazide 25 mg capsule verapamil 120 mg tablet,extended 0 mg PO DAILY 07/04/24 07/04/24 Unknown release azelastine 137 mcg (0.1 %) nasal intranasal 07/10/24 Unknown spray budesonide-formoterol HFA 160 2 puff inhalation BID 07/10/24 07/10/24 Unknown mcg-4.5 mcg/actuation aerosol inhaler (Symbicort) cetirizine 5 mg tablet 5 mg PO DAILY 07/10/24 07/10/24 Unknown diclofenac sodium 75 mg mg PO 07/10/24 Unknown tablet,delayed release elderberry fruit 200 mg capsule mg PO 07/10/24 Unknown Additional Notes: Patient brought updated medication list to PAT. Medications were updated in EMR and medication instructions completed/printed and discussed with patient. Past Medical History Medical History Anxiety Asthma controlled, stable per pt; last albuterol inhaler use several months ago Chronic back pain Chronic pain Degenerative disc disease Depression GERD (gastroesophageal reflux disease) controlled, stable per pt Hemangioma of liver x2 - discharged by GI per pt Hiatal hernia History of anemia s/p back surgery 11/2020 No known hx blood transfusion History of Chiari malformation s/p craniotomy/repair x2 History of COVID-19 x3 Most recent 09/2023 > residual sinus issues since History of hypokalemia Hydrocephalus RECLAIMER Shunt (~1997) No recent issues, monitored by PCP Hyperlipidemia Hypertension controlled, stable per pt Kidney stones Hx Meniere's disease Morbid obesity Neurogenic claudication due to lumbar spinal stenosis Osteoarthritis Sleep apnea CPAP (compliant) SVT (supraventricular tachycardia) Hx Follows with cardio/Dr. Korey Galan Patient denies h/o stroke, seizures, heart attack, heart failure, DM, blood clots/DVTs or blood transfusions. Exercise / Class Metabolic Activity III < 4 Walking/Shop/Light housework (shortness of breath with usual activities ongoing for several months-patient notes correlation to back pain; denies chest discomfort) Past Family History Family History Other Family history of colon cancer in mother Family history of diabetes mellitus in father No family history of adverse response to anesthesia Past Surgical History Surgical History H/O craniotomy x2 to repair chiari malformation with a revision from a bovine patch H/O laminectomy C1-C2 - full rom H/O vaginal hysterectomy History of cardiac cath 20+ years ago -- no stents. History of cataract surgery bilateral History of cholecystectomy History of colonoscopy History of cystocele cystocele repair History of esophagogastroduodenoscopy (EGD) History of left knee replacement History of repair of rectocele History of revision of total replacement of right knee joint History of right knee joint replacement History of spinal fusion 04/01/22 @ [facility] Dr. Cárdenas T10-L2 History of thyroidectomy, subtotal thyroid nodule. no medication. History of tonsillectomy Nausea and vomiting after administration of anesthetic agent does well with IV pre-dosing S/P lumbar fusion L2-3, L5-S1 decompression fusion, L3-5 hardware removal (11/25/2020): Grade view 1 with elective glidescope #3, easy, atraumatic at [facility]. Per post-op anesthesia progress note, " Pt received 300 mcg of fentanyl intraop. At the end of the case, pt apneic. After being given narcan, the patient began to SV and was responding to voice. Sent to PACU and did well in recovery. OK to discharge to floor but continuos pulse oximetry monitoring order placed." T10-L2 decompression/fusion (04/01/2022): Grade 1 view, "Elective" Glidescope#3, ETT 7.0, atraumatic. No issues noted per anesthesia post-op progress note. S/P RECLAIMER shunt [place], [place] (1997) Past Anesthesia History No Hx of Anesthesia Complications and No Family Hx of Anesthesia Complications History of PONV No Hx of Motion Sickness and History of PONV (denies needing scop patch) Social History Smoking Status: Never smoker Do You Dip or Chew Tobacco: No Hx Alcohol Use: No Hx Substance Use: No substance use type: does not use Review of Systems Patient denies chest pain, fever, chills, cough, wheezing, or palpitations. Physical Exam Vital Signs Vitals BP 131/81 P 57 TEMP 97.7 SP02 95% on RA RESP 18 Physical Patient resting comfortably in chair in no acute distress, alert and oriented, responding appropriately throughout visit Full cervical extension range of motion without pain TMD < 3 finger breadths Mallampati Score 3 Dentition: several caps/crowns and bridges; denies chipped or loose teeth, or implants Lungs: normal respiratory effort. Good air movement, clear throughout to auscultation, no adventitious breath sounds Cardiac: regular rate and rhythm, no murmurs noted Carotid arteries: negative bruit bilat Lab Results Anesthesia Preop Results Results Anesthesia Widget: WBC 3.86 K/ul (4.8-10.8) L 07/05/24 Hgb 13.2 g/dl (12.0-16.0) 07/05/24 Hct 40.8 % (37.0-47.0) 07/05/24 Plt 219 K/uL (130-400) 07/05/24 Na 145 mmol/L (136-145) 07/05/24 K 3.5 mmol/L (3.5-5.1) 07/05/24 Cl 108 mmol/L (98-107) H 07/05/24 CO2 31 mmol/L (21-32) 07/05/24 BUN 17 mg/dl (6-23) 07/05/24 Creat 0.62 mg/dl (0.6-1.2) 07/05/24 Glucose Level 110 mg/dl (70-99(Fasting)) H 07/05/24 PT 10.5 Seconds (9.0-12.0) 07/10/24 PTT 25 Seconds (21-31) 07/10/24 INR 1.0 (0.9-1.1) 07/10/24 TSH 0.992 uIu/ml (0.300-4.500) 07/03/24 Urine Color Yellow 07/10/24 Urine Appearance Clear (Clear) 07/10/24 Urine pH 7.0 (4.5-7.5) 07/10/24 Urine Specific [place] 1.013 (1.000-1.030) 07/10/24 Urine Protein Negative (Negative) 07/10/24 Urine Glucose (UA) Negative (Negative) 07/10/24 Urine Ketones Negative (Negative) 07/10/24 Urine Blood Negative (Negative) 07/10/24 Urine Nitrite Negative (Negative) 07/10/24 Urine Bilirubin Negative (Negative) 07/10/24 Urine Urobilinogen Negative (Negative) 07/10/24 Urine Leukocyte Esterase Negative (Negative) 07/10/24 Urine WBC (Auto) >50 /hpf (0-5) H 07/03/24 Urine RBC (Auto) 0-2 /hpf (0-2) 07/03/24 Urine Hyaline Casts (Auto) 3-5 /lpf (0-2) H 07/03/24 Urine Epithelial Cells (Auto) 11-20 /hpf (0-2) H 07/03/24 Urine Bacteria (Auto) 2+ (None Seen) H 07/03/24 COVID-19 PCR NEGATIVE (Negative) 07/03/24 Blood Type A Positive 07/10/24 Antibody Screen NEGATIVE 07/10/24 Testing Electrocardiogram Date: 07/03/24 NSR, rate 60 bpm Chest X-Ray Date: 07/03/24 (skull, cervical spine, 2 view chest and abdominal x-ray) The shunt catheter is noted to terminate at the level of the calvarium. No intact catheter is seen in the level of the cervical spine, chest, or abdomen. No acute fractures are identified. The sinuses are clear. Calcific densities in the anterior calvarium may represent hyperostosis frontalis. There are no soft tissue abnormalities. Dental implants and postcraniotomy changes are seen. Posterior thoracolumbar spinal fixation hardware is seen. Cardiomegaly is noted. The lungs are clear. Degenerative changes are bilateral hip joints. Stress Test Date: 08/22/21 MPHR 39% Negative EF 72% Other Testing Head and neck CTA 07/03/24 Postsurgical changes of occipital craniotomy are seen without acute abnormality. Note, the right-sided shunt appears to terminate at the level of the mastoid air cells. 1. No acute intracranial hemorrhage, evidence of acute territorial infarction, or other acute intracranial disease process. 2. No occlusion, hemodynamically significant stenosis, or dissection in the major cervical arteries. 3. No occlusion, hemodynamically significant stenosis, aneurysm, dissection, or arteriovenous malformation in the major intracranial arteries.
--- NOTE | 2024-07-10 15:28 | PAT Medication Instructions ---
Medication Instructions Date of Service July 10, 2024 Home Medications albuterol sulfate 90 mcg/actuation aerosol inhaler (ProAir HFA) 1 inh inhalation UD PRN alprazolam 0.5 mg tablet 0.5 mg PO TID PRN baclofen 10 mg tablet 20 mg PO BID cholecalciferol (vitamin D3) 25 mcg (1,000 unit) tablet (Vitamin D3) 3,000 unit PO QAM cyanocobalamin (vitamin B-12) 500 mcg tablet (Vitamin B-12) 500 mcg PO DAILY duloxetine 60 mg capsule,delayed release 60 mg PO QAM magnesium 250 mg tablet 250 mg PO UD PRN metoprolol succinate 25 mg tablet,extended release 24 hr 25 mg PO HS montelukast 10 mg tablet 10 mg PO QPM pantoprazole 40 mg tablet,delayed release 0 mg PO QPM potassium chloride 20 mEq tablet,extended release 20 meq PO BID pregabalin 150 mg capsule (Lyrica) 150 mg PO HS rizatriptan 10 mg tablet 0 mg PO UD PRN rosuvastatin 5 mg tablet 5 mg PO QPM famotidine 20 mg tablet 20 mg PO HS ferrous sulfate 325 mg (65 mg iron) tablet 325 mg PO BID fluticasone furoate 100 mcg/actuation blister powder for inhalation (Arnuity Ellipta) 1 inh inhalation QAM oxycodone-acetaminophen 7.5 mg-325 mg tablet 1 tab PO Q8H PRN turmeric 400 mg capsule 400 mg PO DAILY calcitonin (salmon) 200 unit/actuation nasal spray 0 spray intranasal (ALT) DAILY triamterene 37.5 mg-hydrochlorothiazide 25 mg capsule 0 cap PO DAILY verapamil 120 mg tablet,extended release 0 mg PO DAILY azelastine 137 mcg (0.1 %) nasal spray intranasal budesonide-formoterol HFA 160 mcg-4.5 mcg/actuation aerosol inhaler (Symbicort) 2 puff inhalation BID cetirizine 5 mg tablet 5 mg PO DAILY diclofenac sodium 75 mg tablet,delayed release mg PO elderberry fruit 200 mg capsule mg PO Continue as directed albuterol sulfate 90 mcg/actuation aerosol inhaler (ProAir HFA) 1 inh inhalation UD PRN(use if needed; please bring with you to hospital day of surgery if possib le) magnesium 250 mg tablet 250 mg PO UD PRN(if needed) rizatriptan 10 mg tablet 0 mg PO UD PRN(if needed) calcitonin (salmon) 200 unit/actuation nasal spray 0 spray intranasal (ALT) DAILY verapamil 120 mg tablet,extended release 0 mg PO DAILY azelastine 137 mcg (0.1 %) nasal spray intranasal ASK your surgeon for instructions diclofenac sodium 75 mg tablet,delayed release mg PO STOP taking 2 weeks before surgery (or as soon as possible if surgery is within 2 weeks) turmeric 400 mg capsule 400 mg PO DAILY elderberry fruit 200 mg capsule mg PO DO NOT take the morning of surgery cholecalciferol (vitamin D3) 25 mcg (1,000 unit) tablet (Vitamin D3) 3,000 unit PO QAM cyanocobalamin (vitamin B-12) 500 mcg tablet (Vitamin B-12) 500 mcg PO DAILY potassium chloride 20 mEq tablet,extended release 20 meq PO BID ferrous sulfate 325 mg (65 mg iron) tablet 325 mg PO BID triamterene 37.5 mg-hydrochlorothiazide 25 mg capsule 0 cap PO DAILY cetirizine 5 mg tablet 5 mg PO DAILY Take morning of surgery With a small sip of water, OTHERWISE NOTHING TO EAT OR DRINK AFTER MIDNIGHT: alprazolam 0.5 mg tablet 0.5 mg PO TID PRN(if needed) oxycodone-acetaminophen 7.5 mg-325 mg tablet 1 tab PO Q8H PRN(if needed) baclofen 10 mg tablet 20 mg PO BID duloxetine 60 mg capsule,delayed release 60 mg PO QAM fluticasone furoate 100 mcg/actuation blister powder for inhalation (Arnuity Ellipta) 1 inh inhalation QAM budesonide-formoterol HFA 160 mcg-4.5 mcg/actuation aerosol inhaler (Symbicort) 2 puff inhalation BID Take evening before surgery alprazolam 0.5 mg tablet 0.5 mg PO TID PRN(if needed) oxycodone-acetaminophen 7.5 mg-325 mg tablet 1 tab PO Q8H PRN(if needed) baclofen 10 mg tablet 20 mg PO BID metoprolol succinate 25 mg tablet,extended release 24 hr 25 mg PO HS montelukast 10 mg tablet 10 mg PO QPM pantoprazole 40 mg tablet,delayed release 0 mg PO QPM potassium chloride 20 mEq tablet,extended release 20 meq PO BID pregabalin 150 mg capsule (Lyrica) 150 mg PO HS rosuvastatin 5 mg tablet 5 mg PO QPM famotidine 20 mg tablet 20 mg PO HS ferrous sulfate 325 mg (65 mg iron) tablet 325 mg PO BID budesonide-formoterol HFA 160 mcg-4.5 mcg/actuation aerosol inhaler (Symbicort) 2 puff inhalation BID Other Notes If you have any questions please call us at [phone] or [phone] or [phone] or [phone]
[2024-09-11] MEDS ORDERED: MIDAZOLAM HCL 1 MG/ML 2ML VIAL ONE (10:59)
[2024-09-11] MEDS ORDERED: DEXAMETHASONE SOD INJ 4 MG/ML VIAL ONE (10:59)
[2024-09-11] MEDS ORDERED: LIDOCAINE 2% 2 ML VIAL/AMP(20MG/ML) INFIL ONE (10:59)
[2024-09-11] MEDS ORDERED: ONDANSETRON INJ 2 MG/ML 2 ML VIAL ONE (10:59)
[2024-09-11] MEDS ORDERED: fentaNYL citrate PF 100 MCG/2 ML VIAL ONE (10:59)
[2024-09-11] MEDS ORDERED: PROPOFOL IV EMULSION 10 MG/ML 20 ML VIAL IV ONE (10:59)
[2024-09-11] MEDS ORDERED: ROCURONIUM BROMIDE 10 MG/ML 5 ML VIAL IV ONE (11:00)
--- NOTE | 2024-09-11 11:20 | History & Physical Bridge Note ---
Date of Service September 11, 2024 History & Physical Bridge Note I have examined the patient, reviewed the History & Physical and in the interval since the performance of the History & Physical I have noted the following changes of clinical significance: no changes noted
--- NOTE | 2024-09-11 11:22 | History & Physical Report ---
Date of Service September 11, 2024 Assessment & Plan (1) Postlaminectomy syndrome of lumbar region: Plan: Spinal cord stimulator trial History of Present Illness Chief Complaint: Chronic back and leg pain Primary Care Provider: Ravin Crawford This is a 68-year-old female presents with chronic back and leg pain she is here for spinal cord stimulator trial Allergies Allergy/AdvReac Type Severity Reaction Status Date / Time adhesive Allergy Mild Blisters Verified 09/11/24 11:19 topiramate [From Topamax] Allergy Mild Chest Pain Verified 09/11/24 11:19 metoclopramide [From Reglan] AdvReac Mild Skin Verified 09/11/24 11:19 crawling Home Medications Medication Instructions Recorded Confirmed Type albuterol sulfate 90 mcg/actuation 1 inh inhalation UD PRN sob 10/29/20 07/04/24 History aerosol inhaler (ProAir HFA) alprazolam 0.5 mg tablet 0.5 mg PO TID PRN Anxiety 10/29/20 07/04/24 History baclofen 10 mg tablet 20 mg PO BID 10/29/20 07/10/24 History cholecalciferol (vitamin D3) 25 3,000 unit PO QAM 10/29/20 07/10/24 History mcg (1,000 unit) tablet (Vitamin D3) cyanocobalamin (vitamin B-12) 500 500 mcg PO DAILY 10/29/20 07/04/24 History mcg tablet (Vitamin B-12) duloxetine 60 mg capsule,delayed 60 mg PO QAM 10/29/20 07/04/24 History release magnesium 250 mg tablet 250 mg PO UD PRN muscle cramps 10/29/20 07/04/24 History metoprolol succinate 25 mg 25 mg PO HS 10/29/20 07/04/24 History tablet,extended release 24 hr montelukast 10 mg tablet 10 mg PO QPM 10/29/20 07/04/24 History pantoprazole 40 mg tablet,delayed 0 mg PO QPM 10/29/20 07/04/24 History release potassium chloride 20 mEq 20 meq PO BID 10/29/20 07/04/24 History tablet,extended release pregabalin 150 mg capsule (Lyrica) 150 mg PO HS 10/29/20 07/04/24 History rizatriptan 10 mg tablet 10 mg PO UD PRN migraines 10/29/20 09/07/24 History rosuvastatin 5 mg tablet 5 mg PO QPM 10/29/20 07/04/24 History famotidine 20 mg tablet 20 mg PO HS 06/21/24 07/04/24 History ferrous sulfate 325 mg (65 mg 325 mg PO BID 06/21/24 07/04/24 History iron) tablet fluticasone furoate 100 1 inh inhalation QAM 06/21/24 07/04/24 History mcg/actuation blister powder for inhalation (Arnuity Ellipta) oxycodone-acetaminophen 7.5 mg-325 1 tab PO Q8H PRN Pain 06/21/24 07/04/24 History mg tablet turmeric 400 mg capsule 400 mg PO DAILY 06/21/24 07/04/24 History calcitonin (salmon) 200 1 spray intranasal (ALT) DAILY 07/04/24 09/07/24 History unit/actuation nasal spray triamterene 37.5 1 cap PO DAILY 07/04/24 09/07/24 History mg-hydrochlorothiazide 25 mg capsule verapamil 120 mg tablet,extended 120 mg PO QAM 07/04/24 09/07/24 History release azelastine 137 mcg (0.1 %) nasal 1 spray intranasal DAILY 07/10/24 09/07/24 History spray budesonide-formoterol HFA 160 2 puff inhalation BID 07/10/24 09/07/24 History mcg-4.5 mcg/actuation aerosol inhaler (Symbicort) cetirizine 5 mg tablet 5 mg PO DAILY 07/10/24 09/07/24 History diclofenac sodium 75 mg 75 mg PO DAILY 07/10/24 09/07/24 History tablet,delayed release elderberry fruit 200 mg capsule 200 mg PO DAILY 07/10/24 09/07/24 History Past Med/Surg History Problem List (Updated 09/11/24 @ 11:21 by Stiven Cárdenas DO) Postlaminectomy syndrome of lumbar region History of ventriculoperitoneal shunting (Acute) Postoperative anemia Asthma PSVT (paroxysmal supraventricular tachycardia) Sleep apnea Dyslipidemia Neurogenic claudication due to lumbar spinal stenosis Encounter for pre-operative examination Anxiety Medical History Anxiety Asthma controlled, stable per pt; last albuterol inhaler use several months ago Chronic back pain Chronic pain Degenerative disc disease Depression GERD (gastroesophageal reflux disease) controlled, stable per pt Hemangioma of liver x2 - discharged by GI per pt Hiatal hernia History of anemia s/p back surgery 11/2020 No known hx blood transfusion History of Chiari malformation s/p craniotomy/repair x2 History of COVID-19 x3 Most recent 09/2023 > residual sinus issues since History of hypokalemia HTN (hypertension) Hx: UTI (urinary tract infection) hospitalization (06/2024) at [facility] - resolved Hydrocephalus [employer] Shunt (~1997) No recent issues, monitored by PCP Hyperlipidemia Hypertension controlled, stable per pt Kidney stones Hx Meniere's disease Morbid obesity Neurogenic claudication due to lumbar spinal stenosis Osteoarthritis Sepsis due to urinary tract infection 07/03/24 Sleep apnea CPAP (compliant) SVT (supraventricular tachycardia) Hx Follows with cardio/Dr. Korey Galan Surgical History H/O craniotomy x2 to repair chiari malformation with a revision from a bovine patch H/O laminectomy C1-C2 - full rom H/O vaginal hysterectomy History of cardiac cath 20+ years ago -- no stents. History of cataract surgery bilateral History of cholecystectomy History of colonoscopy History of cystocele cystocele repair History of esophagogastroduodenoscopy (EGD) History of left knee replacement History of repair of rectocele History of revision of total replacement of right knee joint History of right knee joint replacement History of spinal fusion 04/01/[address] [facility] Dr. Cárdenas T10-L2 History of thyroidectomy, subtotal thyroid nodule. no medication. History of tonsillectomy Nausea and vomiting after administration of anesthetic agent does well with IV pre-dosing S/P lumbar fusion L2-3, L5-S1 decompression fusion, L3-5 hardware removal (11/25/2020): Grade view 1 with elective glidescope #3, easy, atraumatic at [facility]. Per post-op anesthesia progress note, " Pt received 300 mcg of fentanyl intraop. At the end of the case, pt apneic. After being given narcan, the patient began to SV and was responding to voice. Sent to PACU and did well in recovery. OK to discharge to floor but continuos pulse oximetry monitoring order placed." T10-L2 decompression/fusion (04/01/2022): Grade 1 view, "Elective" Glidescope#3, ETT 7.0, atraumatic. No issues noted per anesthesia post-op progress note. S/P [employer] RO[employer] HAND shunt [place], [place] (1997) Family History Other Family history of colon cancer in mother Family history of diabetes mellitus in father No family history of adverse response to anesthesia Social History Smoking Status: Never smoker Second Hand Exposure: Yes (as a child); Do You Dip or Chew Tobacco: No; Tobacco Cessation Education Requested by Patient: No Hx Alcohol Use: No Hx Substance Use: No Preferred Language: [place] Communication Ability: Effective Manager Sales And Marketing Required: No Beliefs That Will Affect Care: None marital status: Current Living Situation: Spouse Current Living Situation Comment: lives in 2 story home with , currently has difficulty going up/down How many Children do You have: 2 Other Information That Helps Us Care for You: No Feels Safe at Home: Yes Safety Concerns: Feels Safe At This Time Assistive Devices: None Physical Exam Physical Exam: Patient is alert and oriented heart regular rhythm lungs clear
[2024-09-11] MEDS ORDERED: ONDANSETRON INJ 2 MG/ML 2 ML VIAL IV PRN ×2 (11:30→14:18)
[2024-09-11] MEDS ORDERED: ePHEDrine sulfate 50 MG/ML AMP IV PRN (11:30)
[2024-09-11] MEDS ORDERED: HYDROmorphone INJ 1 MG/ML SYRINGE IV PRN ×2 (11:30→14:18)
[2024-09-11] MEDS ORDERED: ATROPINE SULFATE 0.1 MG/ML 10ML SYR IV PRN (11:30)
[2024-09-11] MEDS ORDERED: PROMETHAZINE HCL 6.25 MG in SODIUM CHLORIDE 0.9% 50 ML IV PRN (11:30)
[2024-09-11] MEDS ORDERED: fentaNYL citrate PF 100 MCG/2 ML VIAL IV PRN (11:30)
[2024-09-11 11:40] LABS: Basophils # (auto) 0.04 K/uL (0.00-0.20); Basophils % (auto) 0.7 %; Eosinophils # (auto) 0.12 K/uL (0.00-0.50); Eosinophils % (auto) 2.1 %; Hematocrit (blood only) 42.7 % (37.0-47.0); Hemoglobin 14.2 g/dl (12.0-16.0); Immature Granulocytes # (auto) 0.02 K/uL (0.01-0.20); Immature Granulocytes % (auto) 0.3 %; Lymphocytes # (auto) 1.15 K/uL (1.20-3.40); Lymphocytes % (auto) 19.8 %; Mean Corpuscular Hemoglobin 31.3 pg (25.0-34.0); Mean Corpuscular Hgb Conc 33.3 g/dL (32.0-36.0); Mean Corpuscular Volume 94.1 fL (80.0-100.0); Mean Platelet Volume 9.6 fL (9.4-12.4); Monocytes # (auto) 0.39 K/uL (0.11-0.59); Monocytes % (auto) 6.7 %; Neutrophils # (auto) 4.08 K/uL (1.40-6.50); Neutrophils % (auto) 70.4 %; Platelet Count 257 K/uL (130-400); RDW Coefficient of Variation 12.4 % (11.5-14.5); RDW Standard Deviation 42.5 fL (36.4-46.3); Red Blood Count 4.54 M/uL (4.20-5.40)
[2024-09-11] MEDS: CeleBREX 200 MG CAP PO SCH (11:44)
[2024-09-11] MEDS: GABAPENTIN 300 MG CAP PO SCH (11:44)
[2024-09-11] MEDS: ACETAMINOPHEN 500 MG TAB PO SCH (11:44)
[2024-09-11] MEDS: LR 60ML/HR IV SCH (11:44)
[2024-09-11 11:53] LABS: BUN Creatinine Ratio 36.8 (10-20); Calcium 10.6 mg/dl (8.6-10.3); Creatinine Clr Calc Pharmacy 94.5 ml/min
[2024-09-11] MEDS: ceFAZolin 3000MG 3,000 MG/72.5 ML BAG IV SCH (12:17)
[2024-09-11] MEDS ORDERED: SUGAMMADEX SODIUM 200 MG/2 ML VIAL IV ONE (12:35)
[2024-09-11] MEDS: BUPIVACAINE/EPINEPHRINE 0.25% 1:200,000 30 ML VIAL ONE (12:40)
[2024-09-11] MEDS ORDERED: KETOROLAC 30 MG/ML VIAL ONE (12:45)
[2024-09-11] MEDS: FLOSEAL HEMOSTATIC MATRIX 10ML TOP ONE (12:59)
[2024-09-11] MEDS: ceFAZolin 330 MG/ML 1 GM VIAL ONE (13:00)
--- NOTE | 2024-09-11 13:19 | Operative Report ---
Post Operative Report Pre & Post Diagnosis Operation Date: 09/14/24 07:45 Pre-Op diagnosis: Post lumbar laminectomy syndrome Chronic lumbar radiculopathy Postop diagnosis: Same I identified the patient and participated in the time-out.: Yes Procedure Operation Date: 09/14/24 07:45 #1 T10 laminotomy. #2 placement of [employer] 32-lead dorsal column stimulator paddle extending from T8-T10 attached to external leads for trial. Surgeon Stiven Cárdenas, Location And Measurement Technician Roseanna Kelley Estimated Blood Loss 10 Findings See Below The patient is 5 foot 6 weighing over 119 kg a BMI in excess of 42. Patient's body was did contribute to significant technical difficulty with positioning exposure and the procedure itself and at least 50% increased operative time. Specimens None Indications This is a 68-year-old female well-known to me the presents with chronic back and bilateral leg pain. She is subsequently here for dose home stimulator trial. Description of Procedure Patient was met with identified informed consent obtained. Patient was then taken to the operative suite underwent intubation placed in a prone position on the Silas table on top of the Michael frame. All bony promises well-padded eyes inspected to ensure no external pressure placed upon them. This point the thoracolumbar spine was prepped and draped in sterile fashion. With the assistance of fluoroscopy notified the T10-T11 interlaminar space. Sharp dissection with the assistance of Bovie cautery was formed down to and exposing the lamina of T10. Then performed a midline laminotomy at T10. It was then able to pass a 12, stimulator paddle cephalad extending from T8-T10. It was then anchored into position. Then created a pocket over the right flank and by way of a trocar the leads were taken to the pocket. Temporary leads were then attached to the permanent leads. These temporary leads were then taken from the pocket to the external skin and attached to an external generator. The incisions were then irrigated. The laminotomy site and pocket were closed with subcutaneous Vicryl and 4 Monocryl for fascial closure. Steri-Strips sterile dressing placed. Patient waken taken PACU stable condition. Please note Roseanna Kelley was present at the entire procedure involved the patient positioning complex portion of the surgery and final skin closure. I attest to the content of the Intraoperative Record and any orders documented therein. Any exceptions are noted below.
[2024-09-11] MEDS ORDERED: ONDANSETRON 4 MG OD TAB PO PRN (14:18)
[2024-09-11] MEDS ORDERED: DO NOT ADMINISTER PNEUMOCOCCAL VACCINE PRN (14:18)
[2024-09-11] MEDS ORDERED: MAGNESIUM HYDROXIDE SUSP 30 ML UDC PO PRN (14:18)
[2024-09-11] MEDS ORDERED: LORazepam 2 MG/1 ML VIAL IV PRN (14:18)
[2024-09-11] MEDS ORDERED: bisacodyL 10 MG SUPP PR PRN (14:18)
[2024-09-11] MEDS ORDERED: ACETAMINOPHEN 1,000 MG/100 ML VIAL IV PRN (14:18)
[2024-09-11] MEDS ORDERED: LORazepam 0.5 MG TAB PO PRN (14:18)
[2024-09-11] MEDS ORDERED: FAMOTIDINE 20 MG TAB PO PRN (14:18)
[2024-09-11] MEDS ORDERED: SOD PHOSPHATE/SOD BIPHOSPHATE ENEMA 132 ML BTL PR PRN (14:18)
[2024-09-11] MEDS ORDERED: DO NOT ADMINISTER FLU VACCINE PRN (14:18)
[2024-09-11] MEDS ORDERED: NALOXONE HCL 0.4 MG/1 ML VIAL/CARP IV PRN (14:18)
[2024-09-11] MEDS ORDERED: METOCLOPRAMIDE HCL INJ 5 MG/ML 2 ML VIAL IV PRN (14:18)
[2024-09-11] MEDS ORDERED: diphenhydrAMINE Capsule 25 MG CAP PO PRN (14:18)
[2024-09-11] MEDS ORDERED: hydrOXYzine HCl 25 MG TAB PO PRN (14:18)
[2024-09-11] MEDS ORDERED: ACETAMINOPHEN 500 MG TAB PO PRN (14:18)
[2024-09-11] MEDS ORDERED: ALUMINUM/MAGNESIUM SUSP 30 ML UDC PO PRN (14:18)
[2024-09-11] MEDS ORDERED: RIZATRIPTAN BENZOATE 10 MG TAB PO PRN (14:18)
[2024-09-11] MEDS ORDERED: PROMETHAZINE 12.5 MG/50.5 ML BAG IV PRN (14:18)
[2024-09-11] MEDS ORDERED: MAGNESIUM OXIDE 400 MG TAB PO PRN (14:35)
[2024-09-11] MEDS ORDERED: ALBUTEROL HFA 8 GM INHALER INH PRN (14:45)
--- NOTE | 2024-09-11 15:25 | Hospitalist Consultation ---
<Statement entered by Judith Brown MD - 09/11/24 16:51> I have reviewed vital signs, chart notes, labs and imaging. I have also discussed the management of the patient with the JOY and I agree with the exam findings documented in the history and physical examination and the documented assessment and plan unless otherwise stated below. Date of Consultation September 11, 2024 Assessment & Plan (1) Postlaminectomy syndrome of lumbar region: POD #1 OD #1 for laminotomy, and chord stimulator - IVF per primary service- tolerating clears as of current - Pain managment per primary service- medications reviewed, tiered approp, rescue narcan is available - Decadron per primary service- did add glucose checks- notify provider if BG >180mg/dl and will add on sliding scale coverage if needed - PPI/H2 while on decadron and NSAIDS - No drains in place - blood products per primary service- unless evidence of acute hemorrhagic loss then will replace - Bowel regimine in place - ICS and pulmonary toilet - activity per primary service - PT/OT per primary service (2) Sleep apnea: No PFTs for review - Patient reports CPAP of 15cm H20 at home - She did not bring her home machine- instructed to bring tomorrow - Will use in house machine- at either her set CPAP or Auto PAP - adjust settings as tolerated by patient for adequate RR and VT and Spo2 - Use while napping as well as sleeping at night, while receiving increased sedating medications and pain medications. - Discontinued hydroxyzine secondary to possible sedating effects on top of her other medications (3) Anxiety: Patient on Xanax at home- continued by primary service - redundant ativan discontinued (4) Neurogenic claudication due to lumbar spinal stenosis: Continue her Lyrica (5) Asthma: No PFTs for review - based on patient review- appears to be moderate and well controlled - Continue her RACHEL and ICS and Singulair - Nebulizers as needed for emergent need or ineffective RACHEL inhaler (6) HTN (hypertension): Defer chronic control to her PCP -Pain control while in house - Continue her Verapamil and Metoprolol XL - No evidence of chronic elevation or elevation requiring IV control on previous admissions (7) DVT prophylaxis: - Perprimary service- TEDS/SCDS until hemostasis ensured by primary service then add chemoprophylaxis - Ambulate and OOB History of Present Illness Reason for Consultation: medical managment post operative Requesting Physician: Stiven Cárdenas DO Attending Physician: Stiven Cárdenas DO History of Present Illness 68 YOF POD #1 for laminotomy, and chord stimulator to attempt to manage her post lumbar laminectomy syndrome and Chronic lumbar radiculopathy. Hospitalist service was consulted for postoperative medical management. 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 She also has Hx of GERD, Anxiety, Depression, HTN, HLD, Asthma. Patient was evaluated in her room post recovery. She is easily awakened, speach is clear and appropriate, she is moving all extremities. She states her pain is controlled and she is without any nausea at this time. Currently tolerating water. Have placed CPAP orders, she did not bring her machine, but did bring her mask. Respiratory has been notified for CPAP while napping and at night. EBL: 10 ml reported CODE: FULL Allergies Allergy/AdvReac Type Severity Reaction Status Date / Time adhesive Allergy Mild Blisters Verified 09/11/24 11:19 topiramate [From Topamax] Allergy Mild Chest Pain Verified 09/11/24 11:19 metoclopramide [From Reglan] AdvReac Mild Skin Verified 09/11/24 11:19 crawling Home Medications Medication Instructions Recorded Confirmed Type alprazolam 0.5 mg tablet (Xanax) 0.5 mg PO TID PRN Anxiety 10/29/20 09/11/24 History baclofen 10 mg tablet 20 mg PO BID 10/29/20 09/11/24 History cholecalciferol (vitamin D3) 25 3,000 unit PO QAM 10/29/20 09/11/24 History mcg (1,000 unit) tablet (Vitamin D3) cyanocobalamin (vitamin B-12) 500 500 mcg PO DAILY 10/29/20 09/11/24 History mcg tablet (Vitamin B-12) duloxetine 60 mg capsule,delayed 60 mg PO QAM 10/29/20 09/11/24 History release magnesium 250 mg tablet 250 mg PO UD PRN muscle cramps 10/29/20 09/11/24 History metoprolol succinate 25 mg 25 mg PO DAILY 10/29/20 09/11/24 History tablet,extended release 24 hr montelukast 10 mg tablet 10 mg PO QPM 10/29/20 09/11/24 History (Singulair) pantoprazole 40 mg tablet,delayed 0 mg PO QPM 10/29/20 09/11/24 History release potassium chloride 20 mEq 20 meq PO BID 10/29/20 09/11/24 History tablet,extended release pregabalin 150 mg capsule (Lyrica) 150 mg PO HS 10/29/20 09/11/24 History rizatriptan 10 mg tablet (Maxalt) 10 mg PO UD PRN migraines 10/29/20 09/11/24 History rosuvastatin 5 mg tablet (Crestor) 5 mg PO QPM 10/29/20 09/11/24 History famotidine 20 mg tablet (Pepcid) 20 mg PO HS 06/21/24 09/11/24 History ferrous sulfate 325 mg (65 mg 325 mg PO BID 06/21/24 09/11/24 History iron) tablet fluticasone furoate 100 1 inh inhalation QAM 06/21/24 09/11/24 History mcg/actuation blister powder for inhalation (Arnuity Ellipta) oxycodone-acetaminophen 7.5 mg-325 1 tab PO Q8H PRN Pain 06/21/24 09/11/24 History mg tablet (Percocet) turmeric 400 mg capsule 400 mg PO DAILY 06/21/24 09/11/24 History verapamil 120 mg tablet,extended 120 mg PO QPM 07/04/24 09/11/24 History release azelastine 137 mcg (0.1 %) nasal 1 spray intranasal DAILY 07/10/24 09/11/24 H istory spray cetirizine 5 mg tablet (Allergy 5 mg PO DAILY 07/10/24 09/11/24 History Relief (cetirizine)) diclofenac sodium 75 mg 75 mg PO DAILY 07/10/24 09/11/24 History tablet,delayed release elderberry fruit 200 mg capsule 200 mg PO DAILY 07/10/24 09/11/24 History albuterol sulfate 2 mg tablet 2 mg PO Q6H PRN Shortness Of Breath 09/11/24 09/11/24 History Patient History Medical History Hx: UTI (urinary tract infection) hospitalization (06/2024) at [facility] - resolved Sepsis due to urinary tract infection 07/03/24 HTN (hypertension) Chronic pain History of Chiari malformation s/p craniotomy/repair x2 Anxiety Neurogenic claudication due to lumbar spinal stenosis History of hypokalemia History of COVID-19 x3 Most recent 09/2023 > residual sinus issues since Morbid obesity History of anemia s/p back surgery 11/2020 No known hx blood transfusion Hemangioma of liver x2 - discharged by GI per pt Hydrocephalus [employer] Shunt (~1997) No recent issues, monitored by PCP Hiatal hernia Meniere's disease Osteoarthritis Degenerative disc disease Chronic back pain Kidney stones Hx GERD (gastroesophageal reflux disease) controlled, stable per pt Depression SVT (supraventricular tachycardia) Hx Follows with cardio/Dr. Korey Galan Hyperlipidemia Hypertension controlled, stable per pt Sleep apnea CPAP (compliant) Asthma controlled, stable per pt; last albuterol inhaler use several months ago Surgical History H/O craniotomy x2 to repair chiari malformation with a revision from a bovine patch H/O laminectomy C1-C2 - full rom H/O vaginal hysterectomy History of cardiac cath 20+ years ago -- no stents. History of cataract surgery bilateral History of cholecystectomy History of colonoscopy History of cystocele cystocele repair History of esophagogastroduodenoscopy (EGD) History of left knee replacement History of repair of rectocele History of revision of total replacement of right knee joint History of right knee joint replacement History of spinal fusion 04/01/22 @ [facility] Dr. Cárdenas T10-L2 History of thyroidectomy, subtotal thyroid nodule. no medication. History of tonsillectomy Nausea and vomiting after administration of anesthetic agent does well with IV pre-dosing S/P lumbar fusion L2-3, L5-S1 decompression fusion, L3-5 hardware removal (11/25/2020): Grade view 1 with elective glidescope #3, easy, atraumatic at [facility]. Per post-op an esthesia progress note, " Pt received 300 mcg of fentanyl intraop. At the end of the case, pt apneic. After being given narcan, the patient began to SV and was responding to voice. Sent to PACU and did well in recovery. OK to discharge to floor but continuos pulse oximetry monitoring order placed." T10-L2 decompression/fusion (04/01/2022): Grade 1 view, "Elective" Glidescope#3, ETT 7.0, atraumatic. No issues noted per anesthesia post-op progress note. S/P [employer] shunt [place], [place] (1997) Family History Other Family history of colon cancer in mother Family history of diabetes mellitus in father No family history of adverse response to anesthesia Social History Smoking Status: Never smoker Second Hand Exposure: Yes (as a child); Do You Dip or Chew Tobacco: No; Tobacco Cessation Education Requested by Patient: No Hx Alcohol Use: No Hx Substance Use: No Preferred Language: Italian Communication Ability: Effective Crystalizer Tender Required: No Beliefs That Will Affect Care: None marital status: Current Living Situation: Spouse Current Living Situation Comment: lives in 2 story home with , currently has difficulty going up/down How many Children do You have: 2 Other Information That Helps Us Care for You: No Feels Safe at Home: Yes Safety Concerns: Feels Safe At This Time Assistive Devices: None Review of Systems Review of Systems: REVIEW OF SYSTEMS: Constitutional: No fever, sweats or chills Eyes: No diplopia, no worsening or blurred vision ENT: normal hearing, no trouble swallowing Respiratory: No cough, sputum, dyspnea at rest or on exertion Cardiovascular: No chest pain, tightness or palpitations Abdomen: No pain, nausea, vomiting, diarrhea or constipation Musculoskeletal: (+) chronic back pain, now weakness, Neurologic: (+) some radiculopathy/neuropathy in toes and fingers, No weakness, balance problems Psychiatric: (+) depression Skin: No rash or itch Physical Exam Physical Exam: PHYSICAL EXAM: General: awake, alert, no apparent distress Head: Normocephalic, atraumatic ENT: PERRL, EOMI, mucous membranes moist Neuro: AAO x 3, speech clear and appropriate, strength intact bilaterally 5/5, sensation intact and equal all extremities and dermatomes, no pronator drift Chest: equal rise and fall of the chest, no accessory muscle use, , Clear to auscultation, on 2LNC Cardiac: Regular rate and rhythm, skin warm dry, cap refill <3 seconds, peripheral pulses +2 no JVD, no murmur, no edema GI: NABS x 4 quadrants, soft, nontender to palpation, no rebound, guarding or tenderness : Spontaneously voiding, no pain, no CVA tenderness, Extremities: Normal inspection, no peripheral edema or erythema, calfs nontender to palpation Psych: Normal mood and affect Skin: no rash or erythema Results & Data Results & Data Vital Signs (Past 12 Hours) Vital Signs Temp Pulse Pulse Resp BP Pulse Ox O2 Del Method 09/11/24 15:06 66 16 158/83 H 98 Nasal Cannula 09/11/24 14:48 Nasal Cannula 09/11/24 14:37 36.5 C 68 18 165/81 H 100 Nasal Cannula 09/11/24 14:15 72 12 164/86 H 95 Nasal Cannula 09/11/24 14:05 36.5 C 77 18 161/82 H 93 Nasal Cannula 09/11/24 13:55 78 16 167/84 H 100 Nasal Cannula 09/11/24 13:45 78 14 163/80 H 98 Oxymask 09/11/24 13:35 80 14 176/86 H 99 Oxymask 09/11/24 13:29 36.3 C L 78 20 180/95 H 100 Oxymask 09/11/24 11:25 36.6 C 59 L 18 136/68 96 Room Air O2 Flow Rate 09/11/24 15:06 2.0 09/11/24 14:48 2 09/11/24 14:37 2 09/11/24 14:15 2 09/11/24 14:05 2 09/11/24 13:55 4 09/11/24 13:45 6 09/11/24 13:35 8 09/11/24 13:29 10 09/11/24 11:25 Laboratory Results Abnormal lab results 09/11/24 Range/Units 11:16 Lymph # (Auto) 1.15 L (1.20-3.40) K/uL BUN 28 H (6-23) mg/dl BUN/Creatinine Ratio 36.8 H (10-20) Calcium 10.6 H (8.6-10.3) mg/dl PG Care Time/CCT Total # of Minutes Spent Total Time Spent with Patient: Total time spent is greater than 50% in coordination of care (as documented) at patient's floor/unit and/or counseling patient: Coding Level of Care Code 51336 IN/OBS CONSULT LVL 3,45M Diagnoses Postlaminectomy syndrome of lumbar region M96.1 Sleep apnea G47.30 Anxiety F41.9 Neurogenic claudication due to lumbar spinal stenosis M48.062 Asthma J45.909 HTN (hypertension) I10 DVT prophylaxis Z29.9
--- NOTE | 2024-09-11 15:39 | Anesthesiology Progress Note ---
Date of Service September 11, 2024 Anesthesia Post Procedure Vital Signs Vital Signs: Temp Pulse Pulse Resp BP Pulse Ox O2 Del Method 09/11/24 15:35 36.5 C 75 18 148/81 H 98 Nasal Cannula 09/11/24 15:06 66 16 158/83 H 98 Nasal Cannula 09/11/24 14:48 Nasal Cannula 09/11/24 14:37 36.5 C 68 18 165/81 H 100 Nasal Cannula 09/11/24 14:15 72 12 164/86 H 95 Nasal Cannula 09/11/24 14:05 36.5 C 77 18 161/82 H 93 Nasal Cannula 09/11/24 13:55 78 16 167/84 H 100 Nasal Cannula 09/11/24 13:45 78 14 163/80 H 98 Oxymask 09/11/24 13:35 80 14 176/86 H 99 Oxymask 09/11/24 13:29 36.3 C L 78 20 180/95 H 100 Oxymask 09/11/24 11:25 36.6 C 59 L 18 136/68 96 Room Air O2 Flow Rate 09/11/24 15:35 2 09/11/24 15:06 2.0 09/11/24 14:48 2 09/11/24 14:37 2 09/11/24 14:15 2 09/11/24 14:05 2 09/11/24 13:55 4 09/11/24 13:45 6 09/11/24 13:35 8 09/11/24 13:29 10 09/11/24 11:25 Pain Intensity Back: Pain Intensity: 4 Bilateral Hip: Pain Intensity: 6 Transfer of Care Handoff Completed per policy Notes Mental Status: alert / awake / arousable and participated in evaluation Patient Amnestic to Procedure: Yes Nausea / Vomiting: adequately controlled Pain: adequately controlled Airway Patency, RR, SpO2: stable & adequate BP & HR: stable & adequate Hydration State: stable & adequate Anesthetic Complications: no major complications apparent and Pt Satisfied with anesthetic care
[2024-09-11] MEDS ORDERED: ALBUTEROL 0.083% NEBU SOLN 3 ML VIAL NEB PRN (15:49)
[2024-09-11] MEDS: oxyCODONE HCL IR 5 MG TAB (IMMEDIATE RELEASE) PO PRN (16:41)
[2024-09-11] MEDS: ceFAZolin 2000MG 2,000 MG/15 ML SYR IV SCH (18:31)
[2024-09-11] MEDS: COUGH DROP (SUGAR FREE) LOZ 24 LOZ/1 BOX BUCCAL ONE (20:06)
[2024-09-11] MEDS: DOCUSATE SODIUM/SENNA 50/8.6MG TAB PO SCH (20:06)
[2024-09-11] MEDS: VERAPAMIL HCL 120 MG TABCR PO SCH (20:06)
[2024-09-11] MEDS: PREGABALIN 150 MG CAP PO SCH (20:07)
[2024-09-11] MEDS: FERROUS SULFATE 325 MG TAB PO SCH (20:07)
[2024-09-11] MEDS: POTASSIUM CHLORIDE CRTAB 20 MEQ TABCR PO SCH (20:07)
[2024-09-11] MEDS: BACLOFEN 20 MG TAB PO SCH (20:07)
[2024-09-11] MEDS: HYDROmorphone INJ 0.5 MG/0.5 ML SYR IV PRN (20:07)
[2024-09-11] MEDS: ROSUVASTATIN CALCIUM 5 MG TAB PO SCH (20:07)
[2024-09-11] MEDS: FAMOTIDINE 20 MG TAB PO SCH (20:07)
[2024-09-11] MEDS: MONTELUKAST SODIUM 10 MG TABLET PO SCH (20:07)
[2024-09-11] MEDS: PANTOprazole 40 MG TAB PO SCH (20:07)
[2024-09-12] MEDS: POLYETHYLENE (MIRALAX) 17 GM PACK PO SCH (06:14)
[2024-09-12] MEDS: AZELASTINE HCL 0.1% NASAL 200 SPRAYS/27,400 MCG BTL SCH ×2 (08:35→09:26)
[2024-09-12] MEDS: dexAMETHasone 6 MG in SYRINGE 0 ML IV SCH (08:35)
[2024-09-12] MEDS: FLUTICASONE FUROATE 100MCG 14 PUFFS/INHALER INH SCH (08:37)
[2024-09-12] MEDS: CHOLECALCIFEROL 25 MCG (1000 UNITS) TAB PO SCH (08:38)
[2024-09-12] MEDS: CYANOCOBALAMIN (B-12) 500 MCG TABLET PO SCH (08:39)
[2024-09-12] MEDS: DULoxetine HCL 60 MG CAP PO SCH (08:39)
[2024-09-12] MEDS: CETIRIZINE HCL 10 MG TABLET PO SCH (08:39)
[2024-09-12] MEDS: METOPROLOL SUCC 25MG EXT REL TAB PO SCH (08:40)
[2024-09-12] MEDS ORDERED: COUGH DROP (SUGAR FREE) LOZ 24 LOZ/1 BOX BUCCAL PRN (08:42)
--- NOTE | 2024-09-12 08:49 | Hospitalist Progress Note ---
Date of Service September 12, 2024 Assessment & Plan (1) HTN (hypertension): (2) Postlaminectomy syndrome of lumbar region: (3) History of ventriculoperitoneal shunting: (4) Sleep apnea: (5) Hypercalcemia due to high vitamin D level: Plan (1) Postlaminectomy syndrome of lumbar region: laminotomy, and cord stimulator 09/[address] Cárdenas - Pain managment per primary service- medications reviewed, tiered approp, rescue narcan is available - Decadron per primary service- did add glucose checks- notify provider if BG >180mg/dl and will add on sliding scale coverage if needed - PPI/H2 while on decadron and NSAIDS - No drains in place - ICS and pulmonary toilet - PT/OT per primary service (2) Sleep apnea: No PFTs for review - Patient reports CPAP of 15cm H20 at home - She did not bring her home machine- instructed to bring - Will use in house machine- at either her set CPAP or Auto PAP - adjust settings as tolerated by patient for adequate RR and VT and Spo2 - Use while napping as well as sleeping at night, while receiving increased sedating medications and pain medications. - Discontinued hydroxyzine secondary to possible sedating effects on top of her other medications (3) Anxiety: Patient on Xanax at home- continued by primary service (4) Neurogenic claudication due to lumbar spinal stenosis: Continue her Lyrica (5) Asthma: No PFTs for review - based on patient review- appears to be moderate and well controlled - Continue her RACHEL and ICS and Singulair - Nebulizers as needed for emergent need or ineffective RACHEL inhaler (6) HTN (hypertension): Defer chronic control to her PCP -Pain control while in house - Continue her Verapamil and Metoprolol XL - Resume maxzide (reports she takes and is on database meds), will help with leg/pedal edema Nasal stuffiness - increased azelastine, added menthol PRN minimal hypercalcemiacalcium 10.6 yesterday and was also 10.6 on . Med list says she takes 3000 units daily of vitamin D. Hold vitamin D for now, recommend either stopping or reduced dose see if hypercalcemia resolves (7) DVT prophylaxis: - Perprimary service- TEDS/SCDS until hemostasis ensured by primary service then add chemoprophylaxis - Ambulate and OOB Admission and Anticipated Discharge Date Admission Date: September 11, 2024 Subjective Dia is doing pretty well, no back pain currently, right lower leg is painful but this resolved once I took off her overly tight MITCH hose which had rolled. She has some increase in pedal and ankle edema she says usually she takes a diuretic. No shortness of breath or chest pain Physical Exam Physical Exam: PHYSICAL EXAMINATION Last 24h vital signs reviewed, see documentation in flowsheet General: comfortable appearing, no distress, sitting up on edge of the bed HEENT: Normocephalic, atraumatic, pupils round and equal, sclerae anicteric, no conjunctival injection, moist mucus membranes Lungs: Normal respiratory effort. Clear to auscultation bilaterally. No RRW Heart: Regular rate and rhythm, no murmurs. No JVD Abdomen: Soft, nontender, nondistended. Bowel sounds present. back is currently dressed with surgical dressing no strikethrough, no drains in place Extremities: Warm, dry, well-perfused. 12+ ankle and pedal edema Neuro: Alert and oriented x 4, face symmetric, moves 4 extremities well Psych: Normal affect and behavior Results & Data Results & Data Vital Signs (Past 12 Hours) Vital Signs Temp Pulse Pulse Resp BP Pulse Ox O2 Del Method 09/12/24 08:42 65 135/76 09/12/24 07:50 Room Air 09/12/24 07:29 36.6 C 59 L 18 107/55 L 93 Room Air 09/12/24 03:31 13 97 09/12/24 02:54 36.8 C 61 16 115/67 93 CPAP 09/11/24 23:41 36.5 C 83 18 144/76 H 92 Room Air 09/11/24 22:58 60 14 98 09/11/24 22:33 CPAP FiO2 09/12/24 08:42 09/12/24 07:50 09/12/24 07:29 09/12/24 03:31 2 09/12/24 02:54 09/11/24 23:41 09/11/24 22:58 2 09/11/24 22:33 PG Care Time/CCT Total # of Minutes Spent Total Time Spent with Patient: Total time spent is greater than 50% in coordination of care (as documented) at patient's floor/unit and/or counseling patient: Coding Level of Care Code 05067 SUB INP/OBS CARE MIN Diagnoses HTN (hypertension) I10 Postlaminectomy syndrome of lumbar region M96.1 History of ventriculoperitoneal shunting Z92.89 Sleep apnea G47.30 Hypercalcemia due to high vitamin D level E83.52; E67.3
[2024-09-12] MEDS: TRIAMTERENE/HCTZ 37.5/25MG TAB PO SCH (09:29)
--- NOTE | 2024-09-12 10:46 | Orthopedic Progress Note ---
Date of Service September 12, 2024 Assessment & Plan (1) Postlaminectomy syndrome of lumbar region: Plan: Evin is postoperative day 1 status post spinal cord stim trial. Will continue with pain control. She is going to be assessed by the [employer] repre sentative today. Currently planning to pursue spinal cord stim implant on September 14. Admission and Anticipated Discharge Date Admission Date: September 11, 2024 Margaret Alvares is postoperative day 1 status post spinal cord stim trial. She is up and ambulatory. Back pain is controlled. Leg symptoms greatly improved. No other complaints. Review of Systems Review of Systems: All systems reviewed & are unremarkable except as noted in HPI & below Physical Exam Physical Exam: She sitting on the edge of the bed in no acute distress She is also interviewed with Dr. Cárdenas Alert and oriented x 3 Strength intact bilateral lower extremities dressings intact Results & Data Vital Signs (Past 12 Hours) Vital Signs Temp Pulse Pulse Resp BP Pulse Ox O2 Del Method 09/12/24 08:42 65 135/76 09/12/24 07:50 Room Air 09/12/24 07:29 36.6 C 59 L 18 107/55 L 93 Room Air 09/12/24 03:31 13 97 09/12/24 02:54 36.8 C 61 16 115/67 93 CPAP 09/11/24 23:41 36.5 C 83 18 144/76 H 92 Room Air 09/11/24 22:58 60 14 98 FiO2 09/12/24 08:42 09/12/24 07:50 09/12/24 07:29 09/12/24 03:31 2 09/12/24 02:54 09/11/24 23:41 09/11/24 22:58 2
[2024-09-12] MEDS: ALPRAZolam 0.5 MG TABLET PO PRN (19:45)
[2024-09-13] MEDS ORDERED: MELATONIN 3 MG TAB PO PRN
--- NOTE | 2024-09-13 08:13 | Orthopedic Progress Note ---
Date of Service September 13, 2024 Assessment & Plan (1) Postlaminectomy syndrome of lumbar region: Plan: Dia is postoperative day 2 status post spinal cord stim trial. She was moved forward with implant scheduled for tomorrow. Will make her n.p.o. after midn ight. Will reach out to the help desk representative to see if you can touch base with her today. Admission and Anticipated Discharge Date Admission Date: September 11, 2024 Margaret Alvares is postoperative day 2 status post spinal cord stim trial. She still has some back and bilateral leg pain but it is improved compared to her preoperative status. Rep was unfortunately able to see her yesterday and adjusted. She still wants to move forward with planned surgical procedure tomorrow for spinal cord stim implant. Will make her n.p.o. after midnight. Continue with pain control. Ambulate ad artemio. Review of Systems Review of Systems: All systems reviewed & are unremarkable except as noted in HPI & below Physical Exam Physical Exam: Alert and oriented x 3 No acute distress dressings are clean dry and intact Neuro vastly intact bilateral lower extremities Results & Data Vital Signs (Past 12 Hours) Vital Signs Temp Pulse Pulse Resp BP Pulse Ox O2 Del Method 09/13/24 06:53 36.7 C 55 L 16 114/60 91 Room Air 09/13/24 02:50 15 96 09/12/24 22:23 51 L 13 97 09/12/24 21:42 Room Air 09/12/24 20:13 36.7 C 62 16 132/73 94 Room Air FiO2 09/13/24 06:53 09/13/24 02:50 2 09/12/24 22:23 2 09/12/24 21:42 09/12/24 20:13
[2024-09-13 09:50] LABS: Calcium 10.2 mg/dl (8.6-10.3); Creatinine Clr Calc Pharmacy 105.6 ml/min; Potassium 3.5 mmol/L (3.5-5.1)
--- NOTE | 2024-09-13 18:59 | Hospitalist Progress Note ---
Date of Service September 13, 2024 Assessment & Plan (1) Postlaminectomy syndrome of lumbar region: Plan: s/p spinal cord stimulator trial - 09/11/[address] Cárdenas some improvement in her chronic pain with such thus, plan is for permanent spinal cord stimulator implantation tomorrow - also with Dr Cárdenas NPO after MN for such (2) Neurogenic claudication due to lumbar spinal stenosis: Plan: as above (3) History of ventriculoperitoneal shunting: Plan: seen by neurosurgery at [facility] earlier this fall - shunt checked, functioning well (4) PSVT (paroxysmal supraventricular tachycardia): Plan: history of such cont meto succ 25mg daily (5) Sleep apnea: Plan: cont home CPAP (6) HTN (hypertension): Plan: cont meto succ cont triamterene/HCTZ (7) Hypercalcemia: Plan: likely 2nd to HCTZ use calcium level improved - 10.2 today if levels rise again consider changing her HCTZ to some other BP med consider checking intact PTH level, 25OH Vit D level, etc if levels cont to be high (8) History of Chiari malformation: Plan: s/p decompression surgery in the past (9) Morbid obesity: Plan: BMI 42 (10) Constipation: Plan: already on very good regimen of miralax multiple times each day, senna/colace will give dulcolax po x 1 now if no BM next 48 hours then try suppository Admission and Anticipated Discharge Date Admission Date: September 11, 2024 Subjective only medical complaint is that of constipation no BM since Wednesday to her recollection overall her back/bilateral leg pains have improved with spinal cord stimulator trial she is on tap tomorrow for permanent device implant by Dr Cárdenas walked the hallways today - felt weak Review of Systems Review of Systems: CV - no chest pain pulm - no dyspnea or [facility] - feels bloated, but no nausea/emesis; tolerating meals Physical Exam Physical Exam: gen - NAD, sitting in chair comfortably neck - no JVD mouth - MMM heart - RRR, s1 s2, no murmur lungs - CTA b/l abd - soft NT ND BS+ ext - no edema, pulses 2+ b/l Results & Data Results & Data Vital Signs (Past 12 Hours) Vital Signs Temp Pulse Resp BP Pulse Ox O2 Del Method 09/13/24 14:18 36.7 C 57 L 17 118/61 92 Room Air 09/13/24 12:00 36.5 C 54 L 17 118/67 96 Room Air 09/13/24 10:00 36.5 C 50 L 17 118/67 94 Room Air 09/13/24 08:49 60 144/84 H Laboratory Results Laboratory Results - last 24 hr 09/13/24 09:11 Sodium 141 Potassium 3.5 Chloride 103 Carbon Dioxide 32 Anion Gap 6 BUN 17 Creatinine 0.68 Est Cr Clr Drug Dosing 105.6 eGFR 95.40 BUN/Creatinine Ratio 25.0 H Glucose 149 H Calcium 10.2 PG Care Time/CCT Total # of Minutes Spent Total Time Spent with Patient: Total time spent is greater than 50% in coordination of care (as documented) at patient's floor/unit and/or counseling patient: Coding Level of Care Code 47366 SUB INP/OBS CARE 11/18MIN Diagnoses Postlaminectomy syndrome of lumbar region M96.1 Neurogenic claudication due to lumbar spinal stenosis M48.062 History of ventriculoperitoneal shunting Z92.89 PSVT (paroxysmal supraventricular tachycardia) I47.1 Sleep apnea G47.30 HTN (hypertension) I10 Hypercalcemia E83.52 History of Chiari malformation Z86.69 Morbid obesity E66.01 Constipation K59.00
[2024-09-13] MEDS: bisacodyL 5 MG TABEC PO ONE (20:46)
[2024-09-14] MEDS ORDERED: fentaNYL citrate PF 100 MCG/2 ML VIAL ONE (09:44)
[2024-09-14] MEDS ORDERED: MIDAZOLAM HCL 1 MG/ML 2ML VIAL ONE (09:44)
[2024-09-14] MEDS ORDERED: ROCURONIUM BROMIDE 10 MG/ML 5 ML VIAL IV ONE (09:44)
[2024-09-14] MEDS ORDERED: DEXAMETHASONE SOD INJ 4 MG/ML VIAL ONE (09:44)
[2024-09-14] MEDS ORDERED: GLYCOPYRROLATE 0.2 MG/ML VIAL ONE (09:44)
[2024-09-14] MEDS ORDERED: LIDOCAINE 2% 2 ML VIAL/AMP(20MG/ML) INFIL ONE (09:44)
[2024-09-14] MEDS ORDERED: PROPOFOL IV EMULSION 10 MG/ML 20 ML VIAL IV ONE (09:44)
[2024-09-14] MEDS ORDERED: ONDANSETRON INJ 2 MG/ML 2 ML VIAL ONE (09:44)
[2024-09-14] MEDS: LACTATED RINGER'S 1,000 ML IV SCH (09:58)
--- NOTE | 2024-09-14 10:09 | History & Physical Bridge Note ---
Date of Service September 14, 2024 History & Physical Bridge Note I have examined the patient, reviewed the History & Physical and in the interval since the performance of the History & Physical I have noted the following changes of clinical significance: no changes noted Permanent spinal cord stimulator placement
[2024-09-14] MEDS ORDERED: KETAMINE HCL 10MG/ML SYR ONE (10:27)
[2024-09-14] MEDS: ceFAZolin 3000MG 3,000 MG/72.5 ML BAG IV SCH (10:37)
[2024-09-14] MEDS: BUPIVACAINE/EPINEPHRINE 0.25% 1:200,000 30 ML VIAL ONE (11:07)
[2024-09-14] MEDS: ceFAZolin 330 MG/ML 1 GM VIAL ONE (11:08)
--- NOTE | 2024-09-14 11:12 | Operative Report ---
Post Operative Report Pre & Post Diagnosis Operation Date: 09/14/24 10:15 Pre-Op Diagnosis: Post lumbar laminectomy syndrome, chronic lumbar radiculopathy. Post-Op Diagnosis: Post lumbar laminectomy syndrome, chronic lumbar radiculopathy. I identified the patient and participated in the time-out.: Yes Procedure Operation Date: 09/14/24 10:15 Actual Procedures #1 removal of temporary spinal cord stimulator leads. #2 placement of [employer] nonrechargeable generator in the right lumbar flank. Surgeon Stiven Cárdenas, DO Roving Or Yarn Color Checker Roseanna Kelley Estimated Blood Loss 5 Findings Consistent with Post-Op Diagnosis Specimens None Indications This is a 68-year-old female that is undergone a spinal cord stimulator trial. She had marked improvement of her pain patterns and is here for permanent placement. Description of Procedure Patient was met with identified informed consent obtained. Patient was then taken to the operative suite underwent sedation and placed in prone position on the Silas table atop the Michael frame. All bony promises well-padded eyes inspected to ensure no external pressure placed upon but this point the right flank was prepped and draped normal sterile fashion. Utilizing the previous incision site I opened the pocket created for the temporary leads. The leads were then attached and removed without difficulty. I then attached a nonrechargeable [employer] battery to the leads. It was tested for impedances. Determined to be functioning appropriately. The pocket was copiously irrigated the battery placed within the pocket and the pocket closed subcutaneous Vicryl and 4 Monocryl for final skin closure. Steri-Strips dressing placed. Patient waken taken to PACU in stable condition. Please note Roseanna Kelley was present at the entire procedure and all the patient positioning complex portion of the surgery and fascial closure. I attest to the content of the Intraoperative Record and any orders documented therein. Any exceptions are noted below.
--- NOTE | 2024-09-14 11:35 | Anesthesiology Progress Note ---
Date of Service September 14, 2024 Anesthesia Post Procedure Vital Signs Vital Signs: Temp Pulse Pulse Pulse Resp BP Pulse Ox 09/14/24 11:21 36.6 C 65 18 182/75 H 100 09/14/24 09:18 36.4 C L 55 L 18 169/68 H 98 09/14/24 07:18 36.4 C L 60 18 127/75 97 09/14/24 02:54 50 L 15 99 09/13/24 21:13 36.8 C 58 L 18 107/55 L 95 09/13/24 21:00 52 L 15 99 09/13/24 20:30 09/13/24 14:18 36.7 C 57 L 17 118/61 92 09/13/24 12:00 36.5 C 54 L 17 118/67 96 O2 Del Method O2 Flow Rate FiO2 09/14/24 11:21 Oxymask 6 09/14/24 09:18 Room Air 09/14/24 07:18 Room Air 09/14/24 02:54 2 09/13/24 21:13 Room Air 09/13/24 21:00 2 09/13/24 20:30 CPAP 09/13/24 14:18 Room Air 09/13/24 12:00 Room Air Pain Intensity Back: Pain Intensity: 4 Bilateral Hip: Pain Intensity: 6 Right Abdomen: Pain Intensity: 4 Transfer of Care Handoff Completed per policy Notes Mental Status: alert / awake / arousable Patient Amnestic to Procedure: Yes Nausea / Vomiting: adequately controlled Pain: adequately controlled Airway Patency, RR, SpO2: stable & adequate BP & HR: stable & adequate Hydration State: stable & adequate Anesthetic Complications: no major complications apparent
[2024-09-14] MEDS: fentaNYL citrate PF 100 MCG/2 ML VIAL ONE (11:50)
[2024-09-14] MEDS ORDERED: ONDANSETRON INJ 2 MG/ML 2 ML VIAL IV PRN (12:06)
[2024-09-14] MEDS ORDERED: ePHEDrine sulfate 50 MG/ML AMP IV PRN (12:06)
[2024-09-14] MEDS ORDERED: ATROPINE SULFATE 0.1 MG/ML 10ML SYR IV PRN (12:06)
[2024-09-14] MEDS ORDERED: fentaNYL citrate PF 100 MCG/2 ML VIAL IV PRN (12:06)
[2024-09-14 12:55] VITALS: RESP 16
[2024-09-14 14:08] VITALS: BP 134/77; PULSE 70; TEMP 98.8; O2SAT 92
== END 2024-09-14 14:56 | disposition home or self-care (01) | DRG 29 ==
LOC: ASU 10:43 → 3E 13:22